=== PATIENT | female | born 1925 | race Hispanic/Latino ===

== ENCOUNTER 2017-08-13 17:10 | Inpatient (IN) | payer MEDICARE, OTHER ==
--- NOTE | 2017-08-13 17:35 | ED PDOC ---
Arrival/HPI <[place] - Last Filed: 08/14/17 03:19> - General Historian: Patient - History of Present Illness Time/Duration: Prior to Arrival Symptom Onset: Sudden Symptom Course: Improving Activities at Onset: Light Context: Home <Abimael Ceja - Last Filed: 08/16/17 23:13> - General Chief Complaint: Altered Mental Status Time Seen by Provider: 08/13/17 17:25 - History of Present Illness Narrative History of Present Illness (Text): 08/13/17 17:35 89 year old female, with past medical history of hypertension, presents to the Emergency department via EMS s/p syncopal episode prior to arrival. As per EMS, patient was found by bystander leaning over her apartment railing, unresponsive. 911 was called immediately. Patient's symptoms improved on scene but expresses confusion as to what have occurred. Upon arrival to the Emergency department, patient does not recall what happened with mild confusion to questions. Patient is currently stable and is orientx3. Attempt to contact daughter was made but was unsuccessful. Patient currently denies any fever, chills, nausea, vomiting, diarrhea, chest pain, sob, abdominal pain or any other somatic complaints. (Abimael Ceja) Past Medical History - Provider Review Nursing Documentation Reviewed: Yes - Infectious Disease Hx of Infectious Diseases: None - Reproductive Menopause: Yes - Cardiac Hx Hypertension: Yes - Psychiatric Hx Substance Use: No - Anesthesia Hx Anesthesia Reactions: No <Abimael Ceja - Last Filed: 08/16/17 23:13> Family/Social History - Physician Review Nursing Documentation Reviewed: Yes Family/Social History: No Known Family HX Smoking Status: Unknown If Ever Smoked Hx Alcohol Use: No Hx Substance Use: No <Abimael Ceja - Last Filed: 08/16/17 23:13> Allergies/Home Meds <[place] - Last Filed: 08/14/17 03:19> <Abimael Ceja - Last Filed: 08/16/17 23:13> Allergies/Adverse Reactions: Allergies levothyroxine sodium [From Synthroid] Allergy (Verified 08/14/17 08:07) RASH Home Medications: Home Meds Medication Instructions Recorded Confirmed amLODIPine [Norvasc] 10 mg PO DAILY 08/13/17 08/13/17 Review of Systems - Physician Review All systems were reviewed & negative as marked: Yes - Review of Systems Constitutional: Normal. absent: Fevers Eyes: Normal ENT: Normal Respiratory: Normal. absent: SOB Cardiovascular: Syncope. absent: Chest Pain Gastrointestinal: Normal. absent: Abdominal Pain, Diarrhea, Nausea, Vomiting Genitourinary Female: Normal Musculoskeletal: Normal Skin: Normal Neurological: Other (mild confusion) Endocrine: Normal Hemo/Lymphatic: Normal Psychiatric: Normal <Abimael Ceja - Last Filed: 08/16/17 23:13> Physical Exam Vital Signs Reviewed: Yes Temperature: Afebrile Blood Pressure: Hypertensive Pulse: Regular Respiratory Rate: Normal Appearance: Positive for: Well-Appearing, Non-Toxic, Comfortable Pain Distress: None Mental Status: Positive for: Alert and Oriented X 3, Confused (mildly confused) - Systems Exam Head: Present: Atraumatic, Normocephalic Pupils: Present: PERRL Extroacular Muscles: Present: EOMI Conjunctiva: Present: Normal Mouth: Present: Moist Mucous Membranes Neck: Present: Normal Range of Motion Respiratory/Chest: Present: Clear to Auscultation, Good Air Exchange. No: Respiratory Distress, Accessory Muscle Use Cardiovascular: Present: Regular Rate and Rhythm, Normal S1, S2. No: Murmurs Abdomen: Present: Normal Bowel Sounds. No: Tenderness, Distention, Peritoneal Signs Back: Present: Normal Inspection Upper Extremity: Present: Normal Inspection. No: Cyanosis, Edema Lower Extremity: Present: Normal Inspection. No: Edema Neurological: Present: GCS=15, CN II-XII Intact, Speech Normal Skin: Present: Warm, Dry, Normal Color. No: Rashes Psychiatric: Present: Alert, Oriented x 3, Normal Insight, Normal Concentration <Abimael Ceja - Last Filed: 08/16/17 23:13> Vital Signs Temp Pulse Resp BP Pulse Ox 08/14/17 00:49 69 17 163/93 H 98 08/13/17 23:30 69 198/95 H 08/13/17 22:26 68 17 178/93 H 98 08/13/17 17:30 97.5 F L 90 18 132/93 H 98 Medical Decision Making <[place] - Last Filed: 08/14/17 03:19> <Abimael Ceja - Last Filed: 08/16/17 23:13> ED Course and Treatment: 08/14/17 00:06 My involvement in the case was placing the admission order. ([place]) 08/13/17 17:42 Impression: 89 year old female presents to the Emergency department s/p syncope. ro cardiac metabolic infectious intracranial etiology Plan: -- CT of Head -- EKG -- Chest X-ray -- Urinalysis -- Reassess and disposition Progress Notes: 08/13/17 18:03 EKG: Ordered, reviewed, and independently interpreted the EKG. Rate : 72 BPM Rhythm : NSR Interpretation : No ST-segment elevations or depressions, no T-wave inversions, normal intervals. 08/13/17 22:41 cxr large hiatal hernia as read by me no pevious for comparison. urine treated. attemtped to reach daughter unsuccessfully. attempted to reach dr shah, pmd, no call back. hospitalist. accepts (Abimael Ceja) - Lab Interpretations Microbiology Results: Microbiology Results 08/13/17 19:00 Urine,Clean Catch Urine Culture - Final Escherichia Coli 08/14/17 00:15 Blood Blood Culture - Preliminary NO GROWTH AFTER 48 HOURS 08/14/17 00:00 Blood Blood Culture - Preliminary NO GROWTH AFTER 48 HOURS Lab Results: 08/13/17 17:45 08/13/17 17:45 Lab Results 08/14/17 00:10: Troponin I 0.03 D 08/14/17 00:10: Serum Osmolality 299 08/13/17 21:30: Free T4 0.29 L, TSH 3rd Generation 75.80 H 08/13/17 18:56: Urine Color Yellow, Urine Appearance Sl cloudy, Urine pH 6.5, Ur Specific [place] 1.020, Urine Protein >=300 H, Urine Glucose (UA) 250 H, Urine Ketones Negative, Urine Blood Small H, Urine Nitrate Positive H, Urine Bilirubin Negative, Urine Urobilinogen 0.2, Ur Leukocyte Esterase Negative, Urine RBC 0 - 2, Urine WBC 5 - 10, Ur Epithelial Cells 3 - 4, Urine Bacteria Many 08/13/17 17:45: Hemoglobin A1c 7.3 H 08/13/17 17:45: Sodium 142, Potassium 4.1, Chloride 102, Carbon Dioxide 23, Anion Gap 21 H, BUN 26 H, Creatinine 1.5 H, Est GFR ( Amer) 40, Est GFR ( Non-Af Amer) 33, Random Glucose 219 H, Calcium 9.5, Magnesium 2.3 H, Total Bilirubin 0.5, AST 79 H, ALT 45, Alkaline Phosphatase 81, Lactate Dehydrogenase 842 H, Total Creatine Kinase 189, Troponin I 0.01, Total Protein 7.7, Albumin 4.2, Globulin 3.5, Albumin/Globulin Ratio 1.2 08/13/17 17:45: PT 10.9, INR 0.96, APTT 28.2 08/13/17 17:45: WBC 9.0, RBC 4.53, Hgb 13.5, Hct 40.0, MCV 88.3, MCH 29.8, MCHC 33.8, RDW 13.5, Plt Count 300, MPV 9.1, Gran % 66.8, Lymph % (Auto) 28.0, [place] % (Auto) 4.3, Eos % (Auto) 0.3 L, Baso % (Auto) 0.6, Gran # 6.04, Lymph # (Auto ) 2.5, [place] # (Auto) 0.4, Eos # (Auto) 0.0, Baso # (Auto) 0.05 - RAD Interpretation Radiology Orders: 08/13/17 17:32 HEAD W/O CONTRAST [CT] Stat CHEST PORTABLE [RAD] Stat 08/13/17 23:27 CAROTID & VERTEBRAL DUPLEX [US] Routine - Medication Orders Current Medication Orders: Discontinued Medications Acetaminophen (Tylenol 325mg Tab) 650 mg PO STAT STA Stop: 08/14/17 02:24 Last Admin: 08/14/17 02:33 Dose: 650 mg [facility] Pain/Vitals Document 08/14/17 02:33 GC (Rec: 08/14/17 02:34 GC [id number]) Pain Reassessment Is This A Pain ReAssessment? No Sleep Is patient sleeping during reassessment? No Presence of Pain Presence of Pain Yes Pain Scale Used Pain Scale Used Numeric Location Left, Right or Bilateral Right Pain Location Body Site Abdomen Re-Assess: [facility] Pain/Vitals Document 08/14/17 03:33 GC (Rec: 08/14/17 03:47 GC [id number]) Pain Reassessment Is This A Pain ReAssessment? Yes Sleep Is patient sleeping during reassessment? Yes Amlodipine Besylate (Norvasc) 10 mg PO DAILY [facility] Last Admin: 08/16/17 09:29 Dose: 10 mg MAR Blood Pressure Document 08/16/17 09:29 (Rec: 08/16/17 09:35 [id number]) Blood Pressure Blood Pressure (100/60-150/90) 172/80 Amlodipine Besylate (Norvasc) 10 mg PO STAT STA Stop: 08/14/17 02:26 Last Admin: 08/14/17 02:33 Dose: 10 mg MAR Blood Pressure Document 08/14/17 02:33 GC (Rec: 08/14/17 02:33 GC [id number]) Blood Pressure Blood Pressure (100/60-150/90) 184/81 Aspirin (Aspirin Chewable) 81 mg PO DAILY [facility] Last Admin: 08/16/17 09:28 Dose: 81 mg Atorvastatin Calcium (Lipitor) 40 mg PO DIN [facility] Last Admin: 08/16/17 17:16 Dose: 40 mg Cefpodoxime Proxetil (Vantin) 200 mg PO DAILY [facility] Diphenhydramine HCl (Benadryl) 25 mg IVP Q4H PRN PRN Reason: Allergy symptoms Last Admin: 08/16/17 09:35 Dose: 25 mg IVP Administration Document 08/16/17 09:35 (Rec: 08/16/17 09:35 [id number]) Charges for Administration # of IVP Administrations 1 Famotidine (Pepcid) 40 mg PO HS [facility] Last Admin: 08/15/17 22:35 Dose: 40 mg Heparin Sodium (Porcine) (Heparin) 5,000 units SC Q12 [facility] PRN Reason: Protocol Last Admin: 08/16/17 09:28 Dose: 5,000 units Subcutaneous Administrations Document 08/16/17 09:28 (Rec: 08/16/17 09:28 [id number]) Injection Site MAR Injection Site Right Abdomen Charges for Administration # of Subcutaneous Administrations 1 Hydralazine HCl (Apresoline) 10 mg IVP STAT SEFER[facility] Stop: 08/13/17 22:16 Last Admin: 08/13/17 23:30 Dose: 10 mg IVP Administration Document 08/13/17 23:30 IT (Rec: 08/13/17 23:31 IT [id number]) Charges for Administration # of IVP Administrations 1 MAR Pulse and Blood Pressure Document 08/13/17 23:30 IT (Rec: 08/13/17 23:31 IT [id number]) Pulse Pulse Rate (60-90) 69 Blood Pressure Blood Pressure (100/60-150/90) 198/95 Hydralazine HCl (Apresoline) 5 mg IVP STAT STA Stop: 08/14/17 18:15 Last Admin: 08/14/17 18:23 Dose: 5 mg IVP Administration Document 08/14/17 18:23 R (Rec: 08/14/17 18:23 [id number] Charges for Administration # of IVP Administrations 1 MAR Pulse and Blood Pressure Document 08/14/17 18:23 JFR (Rec: 08/14/17 18:23 [id number]) Pulse Pulse Rate (60-90) 89 Blood Pressure Blood Pressure (100/60-150/90) 185/92 Hydralazine HCl (Apresoline) 5 mg IVP STAT STA Stop: 08/15/17 01:30 Last Admin: 08/15/17 01:37 Dose: 5 mg IVP Administration Document 08/15/17 01:37 GC (Rec: 08/15/17 01:38 GC [id number]) Charges for Administration # of IVP Administrations 1 MAR Pulse and Blood Pressure Document 08/15/17 01:37 GC (Rec: 08/15/17 01:38 GC [place] [id number]) Pulse Pulse Rate (60-90) 73 Blood Pressure Blood Pressure (100/60-150/90) 170/80 Ceftriaxone Sodium (Rocephin 2 Gm Ivpb) 2 gm in 100 mls @ 100 mls/hr IVPB STAT STA PRN Reason: Protocol Stop: 08/13/17 20:26 Last Admin: 08/13/17 20:55 Dose: 100 mls/hr eMAR Start Stop Document 08/13/17 20:55 IT (Rec: 08/13/17 20:55 IT [id number]) Intravenous Solution Start Date 08/13/17 Start Time 20:55 End Date 08/13/17 End time 21:55 Total Infusion Time 60 Ceftriaxone Sodium (Rocephin 1 Gram Ivpb) 1 gm in 100 mls @ 100 mls/hr IVPB DAILY [facility] PRN Reason: Protocol Last Admin: 08/16/17 09:36 Dose: 100 mls/hr eMAR Start Stop Document 08/16/17 09:36 (Rec: 08/16/17 09:36 [id number]) Intravenous Solution Start Date 08/16/17 Start Time 09:36 End Date 08/16/17 End time 10:36 Total Infusion Time 60 Sodium Chloride (Sodium Chloride 0.45%) 500 mls @ 100 mls/hr IV .Q5H SEFERINO Stop: 08/14/17 04:46 Last Admin: 08/14/17 05:09 Dose: Sodium Chloride (Sodium Chloride 0.9%) 1,000 mls @ 50 mls/hr IV .Q20H SEFERINO Stop: 08/14/17 23:59 Last Admin: 08/14/17 14:16 Dose: 50 mls/hr eMAR Start Stop Document 08/14/17 14:16 JFR (Rec: 08/14/17 15:16 JFR [id number]) Intravenous Solution Start Date 08/14/17 Start Time 14:16 Levothyroxine Sodium (Synthroid) 100 mcg IVP STAT STA Stop: 08/14/17 11:36 Last Admin: 08/14/17 12:31 Dose: 100 mcg IVP Administration Document 08/14/17 12:31 JFR (Rec: 08/14/17 12:31 JFR [id number]) Charges for Administration # of IVP Administrations 1 Levothyroxine Sodium (Synthroid) 100 mcg IVP DAILY [facility] Stop: 08/18/17 11:00 Last Admin: 08/16/17 09:29 Dose: 100 mcg IVP Administration Document 08/16/17 09:29 (Rec: 08/16/17 09:29 [id number]) Charges for Administration # of IVP Administrations 1 Metoprolol Succinate (Toprol Xl) 12.5 mg PO BRK [facility] Last Admin: 08/16/17 07:44 Dose: Metoprolol Succinate (Toprol Xl) 25 mg PO BRK [facility] Potassium Chloride (K-Dur 20 Meq Er Tab) 40 meq PO ONCE ONE Stop: 08/14/17 07:53 Last Admin: 08/14/17 08:23 Dose: 40 meq <[place] - Last Filed: 08/14/17 03:19> - Scribe Statement The provider has reviewed the documentation as recorded by the Scribe <Abimael Ceja - Last Filed: 08/16/17 23:13> - Scribe Statement Deanne Call. All medical record entries made by the Scribe were at my direction and personally dictated by me. I have reviewed the chart and agree that the record accurately reflects my personal performance of the history, physical exam, medical decision making, and the department course for this patient. I have also personally directed, reviewed, and agree with the discharge instructions and disposition. (Abimael Ceja) Disposition/Present on Arrival - Disposition Disposition Time: 22:00 <[place] - Last Filed: 08/14/17 03:19> - Present on Arrival Any Indicators Present on Arrival: No History of DVT/PE: No History of Uncontrolled Diabetes: No Urinary Catheter: No History of Decub. Ulcer: No History Surgical Site Infection Following: None - Disposition Have Diagnosis and Disposition been Completed?: Yes <Abimael eCja - Last Filed: 08/16/17 23:13> - Disposition Diagnosis: Syncope Disposition: HOSPITALIZED Condition: STABLE
[2017-08-13 18:07] LABS: BASO # 0.05 K/mm3 (0.0-2.0); BASO % 0.6 % (0.0-3.0); EOS % 0.3 % (1.5-5.0); GRAN # 6.04 (1.4-6.5); GRAN % 66.8 % (50.0-68.0); HEMOGLOBIN 13.5 g/dL (12.0-16.0); LYMPH # 2.5 (1.2-3.4); MEAN CELL VOLUME 88.3 fl (80.0-105.0); MEAN CORPUSCULAR HEMOGLOBIN 29.8 pg (25.0-35.0); MEAN CORPUSCULAR HGB CONC 33.8 g/dl (31.0-37.0); MEAN PLATELET VOLUME 9.1 fl (7.0-11.0); MONO # 0.4 (0.1-0.6); MONO % 4.3 % (1.0-6.0); RBC 4.53 10^6/uL (3.5-6.1); RED CELL DISTRIBUTION WIDTH 13.5 % (11.5-14.5)
[2017-08-13 18:14] LABS: INR 0.96 (0.93-1.08); PARTIAL THROMBOPLASTIN TIME 28.2 Seconds (25.1-36.5); PROTHROMBIN TIME 10.9 SECONDS (9.4-12.5)
[2017-08-13 18:20] LABS: TROPONIN I 0.01 ng/mL
[2017-08-13 18:23] LABS: ALB/GLOB RATIO 1.2 (1.1-1.8); ALBUMIN 4.2 g/dL (3.0-4.8); CALCIUM 9.5 mg/dL (8.4-10.5); MAGNESIUM 2.3 mg/dL (1.7-2.2)
[2017-08-13 19:26] LABS: PH,URINE 6.5 (4.7-8.0); URINE APPEARANCE SL CLOUDY (CLEAR); URINE BILIRUBIN NEGATIVE (NEGATIVE); URINE BLOOD SMALL (NEGATIVE); URINE COLOR YELLOW (YELLOW); URINE GLUCOSE (UA) 250 mg/dL (NEGATIVE); URINE LEUKOCYTE ESTERASE NEGATIVE Leu/uL (NEGATIVE); URINE NITRATE POSITIVE (NEGATIVE); URINE PROTEIN >=300 mg/dL (<30 mg/dL); URINE UROBILINOGEN 0.2 E.U./dL (<1 E.U./dL)
[2017-08-13] MEDS ORDERED: cefTRIAXone 2 GM IN NS 2 GM/100 ML BAG IVPB STA (19:27)
[2017-08-13 19:36] LABS: URINE BACTERIA MANY (NEG); URINE RBC 0 - 2 /hpf (0-2)
--- NOTE | 2017-08-13 21:09 | CT ---
EXAM: CT Head Without Intravenous Contrast CLINICAL HISTORY: 89 years old, female; Signs and symptoms; Syncope and collapse TECHNIQUE: Axial computed tomography images of the head/brain without intravenous contrast. All CT scans at this facility use one or more dose reduction techniques, viz.: automated exposure control; ma/kV adjustment per patient size (including targeted exams where dose is matched to indication; i.e. head); or iterative reconstruction technique. Coronal and sagittal reformatted images were created and reviewed. COMPARISON: No relevant prior studies available. FINDINGS: Brain: Moderate atrophy. No intracranial hemorrhage. No mass. Senescent calcifications of basal ganglia and cerebellum. Few scattered foci of decreased attenuation within periventricular/subcortical white matter. No definite edema. Ventricles: No hydrocephalus. Bones/joints: No acute fracture. Degenerative changes of RIGHT temporomandibular joint. Soft tissues: Unremarkable. Vasculature: Mild atherosclerotic disease of intracranial arteries. Sinuses: Moderate to severe mucosal thickening of RIGHT maxillary sinus. Scattered minimal mucosal thickening of remaining sinuses. Mastoid air cells: No mastoid effusion. Orbits: Unremarkable as visualized. IMPRESSION: 1. Nonspecific white matter changes. Acute infarction may be CT occult within first 24 hours. If a focal deficit persists, consider followup CT or MRI for further evaluation. 2. Incidental/non-acute findings are described above.
--- NOTE | 2017-08-13 23:59 | CP.PCM.HP ---
History of Present Illness - History of Present Illness History of Present Illness: Sherin Michel, PGY1, H&P for Dr Castro: CC: syncope 89 year old female, with PMH HTN, CVA, TIA, hypothyroidism, HLD, present to ED s /p syncopal episode x1. Pt is a poor historian and hard of hearing. As per EMS, patient was found by bystander leaning over her apartment railing, unresponsive. 911 was called immediately by her neighbor. As per pt, she was in her usual state of health until this evening. She was [place] [employer] [place] and going to her daughter's place when her right foot "gave out" and she could not move. She then passed out and fell forward over the railing nearby, denies hitting her head/ribs/hip. She then woke up in the hospital, she was mildly confused to what happened, but is currently AAOx3. Denies dizziness, weakness, fever, chills, nausea, vomiting, neck pain, rash, sob, cough, abdominal pain, chest pain, dysuria, hematuria, leg swelling. Of note, pt states that she is allergic to synthroid (causes throat swelling) and stopped taking it for a month. Denies previous such episodes, states that she had slurred speech in her previous stroke episodes. In ED, pt afebrile, bp elevated, elevated BUN/Cr 26/2.5, UTI positive for infection, CT head negative, CXR shows large hiatal hernia. EKg shows normal sinus rhythm without any ST/T wave changes. Currently, pt is at her baseline, denies any symptoms. Give rocephin 2 gm IV x1. Attempt made to contact daughter , which was unsuccessful. 12 point ROS obtained and negative, except as per HPI. PMH: HTN, CVA with no residual weakness (10 years ago), TIA x4 (many years ago) , hypothyroidism, HLD PSH: denies All: synthroid (throat swelling) FH: denies SH: denies etoh/drug/tobacco use. Lives at home alone, has daughter nearby to help her. Uses shopping cart to walk around (states that her cane is too heavy). [facility]acy: [facility] ([facility]: please call pharmacy to get all home meds) Present on Admission - Present on Admission Any Indicators Present on Admission: No History of DVT/PE: No History of Uncontrolled Diabetes: No Urinary Catheter: No Decubitus Ulcer Present: No Review of Systems - Review of Systems All systems: reviewed and no additional remarkable complaints except Review of Systems: as per HPI Past Patient History - Infectious Disease Hx of Infectious Diseases: None - Past Social History Smoking Status: Unknown If Ever Smoked - CARDIAC Hx Hypertension: Yes - PSYCHIATRIC Hx Substance Use: No - ANESTHESIA Hx Anesthesia Reactions: No Meds Allergies/Adverse Reactions: Allergies Allergy/AdvReac Type Severity Reaction Status Date / Time Unobtainable Allergy Verified 08/13/17 17:29 Physical Exam - Constitutional Appears: Non-toxic, No Acute Distress, Older Than Stated Age, Chronically Ill - Head Exam Head Exam: ATRAUMATIC, NORMOCEPHALIC - Eye Exam Eye Exam: EOMI, PERRL. absent: Conjunctival injection, Nystagmus, Scleral icterus Pupil Exam: NORMAL ACCOMODATION, PERRL. absent: Fixed, Irregular, Unequal - ENT Exam ENT Exam: Mucous Membranes Moist - Neck Exam Neck exam: Positive for: Full Rom - Respiratory Exam Respiratory Exam: Clear to Auscultation Bilateral, NORMAL BREATHING PATTERN. absent: Accessory Muscle Use, Chest Wall Tenderness, Rales, Rhonchi, Wheezes, Respiratory Distress, Stridor - Cardiovascular Exam Cardiovascular Exam: RRR, +S1, +S2. absent: Bradycardia, Tachycardia, Systolic Murmur - GI/Abdominal Exam GI & Abdominal Exam: Normal Bowel Sounds, Soft. absent: Diminished Bowel Sounds , Distended, Firm, Guarding, Organomegaly, Rebound, Rigid, Tenderness - Extremities Exam Extremities exam: Positive for: normal inspection. Negative for: calf tenderness, pedal edema - Back Exam Back exam: NORMAL INSPECTION - Neurological Exam Neurological exam: Alert, CN II-XII Intact, Oriented x3, Reflexes Normal Additional comments: Sensation grossly intact throughout. Motor strength 5/5 bilaterally - Psychiatric Exam Psychiatric exam: Normal Affect, Normal Mood - Skin Skin Exam: Dry, Normal Color, Warm Results - Vital Signs Recent Vital Signs: Last Vital Signs Temp 97.5 F L 08/13/17 17:30 Pulse 69 08/13/17 23:30 Resp 17 08/13/17 22:26 BP 198/95 H 08/13/17 23:30 Pulse Ox 98 08/13/17 22:26 - Labs Result Diagrams: 08/13/17 17:45 02/03/18 17:45 Labs: Laboratory Results - last 24 hr 08/13/17 08/13/17 08/13/17 17:45 17:45 17:45 WBC 9.0 RBC 4.53 Hgb 13.5 Hct 40.0 MCV 88.3 MCH 29.8 MCHC 33.8 RDW 13.5 Plt Count 300 MPV 9.1 Gran % 66.8 Lymph % (Auto) 28.0 [place] % (Auto) 4.3 Eos % (Auto) 0.3 L Baso % (Auto) 0.6 Gran # 6.04 Lymph # (Auto) 2.5 [place] # (Auto) 0.4 Eos # (Auto) 0.0 Baso # (Auto) 0.05 PT 10.9 INR 0.96 APTT 28.2 Sodium 142 Potassium 4.1 Chloride 102 Carbon Dioxide 23 Anion Gap 21 H BUN 26 H Creatinine 1.5 H Est GFR ( Amer) 40 Est GFR (Non-Af Amer) 33 Random Glucose 219 H Calcium 9.5 Magnesium 2.3 H Total Bilirubin 0.5 AST 79 H ALT 45 Alkaline Phosphatase 81 Lactate Dehydrogenase 842 H Total Creatine Kinase 189 Troponin I 0.01 Total Protein 7.7 Albumin 4.2 Globulin 3.5 Albumin/Globulin Ratio 1.2 Urine Color Urine Appearance Urine pH Ur Specific [place] Urine Protein Urine Glucose (UA) Urine Ketones Urine Blood Urine Nitrate Urine Bilirubin Urine Urobilinogen Ur Leukocyte Esterase Urine RBC Urine WBC Ur Epithelial Cells Urine Bacteria 08/13/17 18:56 WBC RBC Hgb Hct MCV MCH MCHC RDW Plt Count MPV Gran % Lymph % (Auto) [place] % (Auto) Eos % (Auto) Baso % (Auto) Gran # Lymph # (Auto) [place] # (Auto) Eos # (Auto) Baso # (Auto) PT INR APTT Sodium Potassium Chloride Carbon Dioxide Anion Gap BUN Creatinine Est GFR ( Amer) Est GFR (Non-Af Amer) Random Glucose Calcium Magnesium Total Bilirubin AST ALT Alkaline Phosphatase Lactate Dehydrogenase Total Creatine Kinase Troponin I Total Protein Albumin Globulin Albumin/Globulin Ratio Urine Color Yellow Urine Appearance Sl cloudy Urine pH 6.5 Ur Specific [place] 1.020 Urine Protein >=300 H Urine Glucose (UA) 250 H Urine Ketones Negative Urine Blood Small H Urine Nitrate Positive H Urine Bilirubin Negative Urine Urobilinogen 0.2 Ur Leukocyte Esterase Negative Urine RBC 0 - 2 Urine WBC 5 - 10 Ur Epithelial Cells 3 - 4 Urine Bacteria Many Assessment & Plan - Assessment and Plan (Free Text) Assessment: 89 year old female with hx of CVA, TIA, hypothyroidism, HTN, HLD, presents for syncopal episode, found to have UTI, GRACIELA: Syncope: 2/2 cardiac arrhythmias vs cardiac valvular abnormalities vs TIA vs CVA vs thyroid abnormalities vs UTI/sepsis - pt afebrile, elevated BP - EKG shows HR [address]/T changes, T wave inversions. - Trop neg x1, f/u serial trops - F/u echo, carotid doppler - ASA 81 mg, lipitor 40 mg - Neuro checks - Neuro consulted. F/u recs - Cardio ([facility]) consulted. F/u recs. - F/u TSH, Ft4 - UA + infection. F/u urine culture. - Rocephin 2 mg IV given in ED. C/w Rocephin 1 mg IV daily for UTI UTI: - UA + for infection - Rocephin 2 mg iV given in ED. F/u urine culture Acute on chronic kidney disease: likely dehydration vs intrinsic kidney disease vs postrenal - GFR 33 - BUN/Cr 26/1.5 (unknown baseline) - F/u urine lytes, fena - Gentle hydration 1/2 NS @ 100cc/hr x 5 hours. Hx of hypothyroidism: - Pt states that she is allergic to Synthroid (causes throat swelling) and has not taken it for past 1 month - F/u TSH, FT4 Hx of HTN: - C/w home med Norvasc Hx of CVA: - confirm home meds with [facility] pharmacy in daytime. - Plavix? PPX: SCDs, Pepcid Discussed with Dr Castro. - Date & Time Date: 08/14/17 Time: 00:07
[2017-08-14 00:21] LABS: FREE T4 0.29 ng/dL (0.78-2.19)
[2017-08-14] MEDS: Sodium Chloride 0.45% 500 ML IV SCH ×2 (00:49→05:09)
[2017-08-14 02:59] VITALS: BMI 24.0
[2017-08-14 07:16] LABS: BASO # 0.03 K/mm3 (0.0-2.0); BASO % 0.3 % (0.0-3.0); EOS % 0.1 % (1.5-5.0); GRAN # 8.43 (1.4-6.5); GRAN % 74.7 % (50.0-68.0); HEMOGLOBIN 12.6 g/dL (12.0-16.0); LYMPH # 2.3 (1.2-3.4); LYMPH % 20.6 % (22.0-35.0); MEAN CELL VOLUME 87.3 fl (80.0-105.0); MEAN CORPUSCULAR HEMOGLOBIN 29.1 pg (25.0-35.0); MEAN CORPUSCULAR HGB CONC 33.3 g/dl (31.0-37.0); MEAN PLATELET VOLUME 8.9 fl (7.0-11.0); MONO # 0.5 (0.1-0.6); MONO % 4.3 % (1.0-6.0); RBC 4.33 10^6/uL (3.5-6.1); RED CELL DISTRIBUTION WIDTH 13.5 % (11.5-14.5); WHITE BLOOD COUNT 11.3 10^3/ul (4.5-11.0)
[2017-08-14 07:35] LABS: ALB/GLOB RATIO 1.1 (1.1-1.8); ALBUMIN 3.4 g/dL (3.0-4.8); CALCIUM 9.2 mg/dL (8.4-10.5); MAGNESIUM 2.2 mg/dL (1.7-2.2)
[2017-08-14 07:37] LABS: TROPONIN I 0.04 ng/mL
[2017-08-14] MEDS ORDERED: Potassium Chloride 20 mEq ER Tab PO ONE (07:52)
--- NOTE | 2017-08-14 07:54 | CP.PCM.PN ---
<Barbara Mayes - Last Filed: 08/14/17 14:26> Subjective - Date & Time of Evaluation Date of Evaluation: 08/14/17 Time of Evaluation: 09:30 - Subjective Subjective: PGY2 Medicine note for Dr. Blanchard Patient seen and examined sitting up in bed eating breakfast. Patient was AO x 3 and able to follow commands and complete full sentences. She was able to recall the story from the day prior of how she felt weak and her legs gave way and she fell. Patient reported some pain on the right side of her chest which she associates with the fall. Otherwise on complete ROS she denied acute complaints of headache, dizziness, chest pain, palpitations, SOB, cough, abd pain, nausea, vomiting, bowel/bladder complaints, pain/swelling in her legs bilaterally. Objective - Vital Signs/Intake and Output Vital Signs (last 24 hours): Temp Pulse Resp BP Pulse Ox 98.5 F 97 H 18 159/70 H 98 08/14/17 06:00 08/14/17 06:00 08/14/17 06:00 08/14/17 06:00 08/14/17 06:00 Intake and Output: 08/14/17 08/14/17 06:59 18:59 Intake Total 520 Output Total 300 Balance 220 - Medications Medications: Current Medications Amlodipine Besylate (Norvasc) 10 mg PO DAILY SEFERINO Aspirin (Aspirin Chewable) 81 mg PO DAILY SEFERINO Atorvastatin Calcium (Lipitor) 40 mg PO DIN SEFERINO Famotidine (Pepcid) 40 mg PO HS [facility] Last Admin: 08/14/17 02:04 Dose: 40 mg Ceftriaxone Sodium (Rocephin 1 Gram Ivpb) 1 gm in 100 mls @ 100 mls/hr IVPB DAILY [facility] PRN Reason: Protocol - Labs Labs: 08/14/17 06:30 08/14/17 06:30 PT 10.9 SECONDS (9.4-12.5) 08/13/17 17:45 INR 0.96 (0.93-1.08) 08/13/17 17:45 APTT 28.2 Seconds (25.1-36.5) 08/13/17 17:45 - Constitutional Appears: Younger Than Stated Age - Head Exam Head Exam: ATRAUMATIC, NORMAL INSPECTION, NORMOCEPHALIC - Eye Exam Eye Exam: EOMI, Normal appearance, PERRL. absent: Conjunctival injection, Scleral icterus - ENT Exam ENT Exam: Mucous Membranes Moist - Neck Exam Neck Exam: Full ROM, Normal Inspection - Respiratory Exam Respiratory Exam: Clear to Ausculation Bilateral, NORMAL BREATHING PATTERN. absent: Accessory Muscle Use, Chest Wall Tenderness, Rales, Rhonchi, Wheezes, Respiratory Distress - Cardiovascular Exam Cardiovascular Exam: REGULAR RHYTHM, RRR, +S1, +S2. absent: Murmur - GI/Abdominal Exam GI & Abdominal Exam: Soft, Normal Bowel Sounds. absent: Firm, Guarding, Rigid, Tenderness - Extremities Exam Extremities Exam: Normal Capillary Refill, Normal Inspection. absent: Pedal Edema, Tenderness - Back Exam Back Exam: NORMAL INSPECTION. absent: rash noted - Neurological Exam Neurological Exam: Alert, Awake, CN II-XII Intact, Oriented x3 - Psychiatric Exam Psychiatric exam: Normal Affect, Normal Mood - Skin Skin Exam: Dry, Intact, Normal Color, Warm Assessment and Plan - Assessment and Plan (Free Text) Assessment: 89 year old female with hx of CVA, TIA, hypothyroidism, HTN, HLD, presents for syncopal episode, found to have UTI, GRACIELA Plan: Syncope: - 2/2 cardiac arrhythmias vs cardiac valvular abnormalities vs TIA vs CVA vs thyroid abnormalities vs UTI/sepsis - pt afebrile, elevated BP - EKG shows HR [address]/T changes, T wave inversions. - Trop neg x 3 - F/u echo, carotid doppler - ASA 81 mg, lipitor 40 mg - Head/Neck MRA: neg - Brain MRI: neg - Head CT: neg - Neuro checks - Neuro consulted. F/u recs - Cardio ([place]) consulted. F/u recs. UTI: - UA + for infection: Protein > 300, Glucose 250, Small blood, Nitrate + - F/u blood and urine culture - Rocephin 1gm qd Acute on chronic kidney disease: - likely dehydration vs intrinsic kidney disease vs postrenal - GFR 33 - BUN/Cr 26/1.5 (unknown baseline) --> Bun/Cr 21/1.3 - F/u urine lytes, fena - Gentle hydration 1/2 NS @ 100cc/hr x 5 hours. Hx of hypothyroidism: - Free T4: 0.29 - TSH: 75.80 - Synthroid 100mcg ivp qdaily ordered by Dr. Cam Hx of HTN: - C/w home med Norvasc Hx of CVA: - confirm home meds with [facility] - Plavix? GI ppx: Pepcid 40mg po hs DVT ppx: SCDs, Heparin 5000u sq q12 Diet: HHD Discussed with Dr. Santo Mayes PGY2 <Celina Blanchard - Last Filed: 08/14/17 15:12> Objective - Vital Signs/Intake and Output Vital Signs (last 24 hours): Temp Pulse Resp BP Pulse Ox 98.2 F 65 18 146/71 98 08/14/17 12:00 08/14/17 12:00 08/14/17 12:00 08/14/17 12:00 08/14/17 06:00 Intake and Output: 08/14/17 08/14/17 06:59 18:59 Intake Total 520 300 Output Total 300 600 Balance 220 -300 - Medications Medications: Current Medications Amlodipine Besylate (Norvasc) 10 mg PO DAILY [facility] Last Admin: 08/14/17 10:52 Dose: 10 mg Aspirin (Aspirin Chewable) 81 mg PO DAILY [facility] Last Admin: 08/14/17 10:52 Dose: 81 mg Atorvastatin Calcium (Lipitor) 40 mg PO DIN SEFERINO Diphenhydramine HCl (Benadryl) 25 mg IVP Q4H PRN PRN Reason: Allergy symptoms Famotidine (Pepcid) 40 mg PO HS [facility] Last Admin: 08/14/17 02:04 Dose: 40 mg Heparin Sodium (Porcine) (Heparin) 5,000 units SC Q12 SEFERINO PRN Reason: Protocol Ceftriaxone Sodium (Rocephin 1 Gram Ivpb) 1 gm in 100 mls @ 100 mls/hr IVPB DAILY [facility] PRN Reason: Protocol Last Admin: 08/14/17 10:49 Dose: 100 mls/hr Sodium Chloride (Sodium Chloride 0.9%) 1,000 mls @ 50 mls/hr IV .Q20H [facility] Stop: 08/14/17 23:59 Levothyroxine Sodium (Synthroid) 100 mcg IVP DAILY [facility] Stop: 08/18/17 11:00 - Labs Labs: 08/14/17 06:30 08/14/17 06:30 PT 10.9 SECONDS (9.4-12.5) 08/13/17 17:45 INR 0.96 (0.93-1.08) 08/13/17 17:45 APTT 28.2 Seconds (25.1-36.5) 08/13/17 17:45 Attending/Attestation - Attestation I have personally seen and examined this patient.: Yes I have fully participated in the care of the patient.: Yes I have reviewed all pertinent clinical information, including history, physical exam and plan: Yes Notes (Text): 08/14/17 15:08 89 year old female with past medical history of CVA, hypothyroidism, hypertension and hypothyroidism who presented after syncopal episode. CT head is negative. MRI studies are negative for acute findings as well. Neurology evaluation was appreciated. EEG is pending. She is also pending cardiology and physical therapy evaluation. Echocardiogram and carotid dopplers are pending. She was also found to UTI. Continue with ceftiaxone while awaiting urine culture. TSH is elevated. She admits to medication noncompliance. Endocrinology evaluation is requested. Continue with IVF for mild GRACIELA which is improving. Case was discussed with her pmd Dr. Schultz this morning. Celina Blanchard MD [facility].
--- NOTE | 2017-08-14 08:49 | RAD ---
HISTORY: syncope COMPARISON: No prior. FINDINGS: LUNGS: No active pulmonary disease. PLEURA: No significant pleural effusion identified, no pneumothorax apparent. CARDIOVASCULAR: Normal. OSSEOUS STRUCTURES: No significant abnormalities. VISUALIZED UPPER ABDOMEN: Large hiatal hernia OTHER FINDINGS: None. IMPRESSION: No active disease.
[2017-08-14] MEDS: cefTRIAXone 1 gm 1 GM/100 ML BAG IVPB SCH (10:49)
[2017-08-14] MEDS ORDERED: Levothyroxine 100 mcg (0.1 mg) Inj IVP STA (11:35)
--- NOTE | 2017-08-14 11:44 | CARD ---
APPROVED REPORT EKG Measurement Heart [id number] 130P77 [id number] <Conclusion> Normal sinus rhythm Left anterior fascicular block Septal infarct, age undetermined Abnormal ECG
--- NOTE | 2017-08-14 11:47 | MRI ---
PROCEDURE: MRI BRAIN WITHOUT CONTRAST HISTORY: r/o tia COMPARISON: None. TECHNIQUE: Multiplanar, multisequence MR images of the brain were obtained without intravenous contrast enhancement. FINDINGS: HEMORRHAGE: None DWI: No evidence of an acute or early subacute infarction. BRAIN PARENCHYMA: No mass effect or edema. Chronic microvascular changes are seen in the periventricular white matter. There is moderate atrophy. There are no acute intracranial finding VENTRICLES: Unremarkable. No hydrocephalus. CRANIUM: Unremarkable. ORBITS: Grossly unremarkable. PARANASAL SINUSES/MASTOIDS: There is mucosal thickening and partial opacification of the right maxillary sinus VASCULAR SYSTEM: Skull base flow voids intact. OTHER FINDINGS: None. IMPRESSION: No acute intracranial findings
--- NOTE | 2017-08-14 11:49 | CARD ---
APPROVED REPORT EKG Measurement Heart [id number] 128P70 [id number] <Conclusion> Normal sinus rhythm Left anterior fascicular block Septal infarct, age undetermined Abnormal ECG
--- NOTE | 2017-08-14 11:49 | MRI ---
PROCEDURE: MR Angiography of the neck without contrast HISTORY: r/o tia COMPARISON: None available. TECHNIQUE: 3D [id number] angiography of the neck was performed. Rotating maximum intensity projection images of the cervical carotid and vertebral arteries were generated. The origins of the common carotid arteries were not visualized, which is a limitation inherent to the non-contrast time of flight technique. There is motion artifact on the study which limited several of the series. However the 3D [id number] images were of diagnostic quality. FINDINGS: RIGHT CAROTID ARTERIES: Common Carotid Artery: Normal. Carotid Bifurcation: Normal. Internal Carotid Artery:Normal. External Carotid Artery (proximal branches): Normal. LEFT CAROTID ARTERIES: Common Carotid Artery: Normal. Carotid Bifurcation: Normal. Internal Carotid Artery:Normal. External Carotid Artery (proximal branches): Normal. VERTEBRAL ARTERIES: Right Vertebral Artery: Dominant Left Vertebral Artery: Normal. OTHER FINDINGS: None. IMPRESSION: No significant stenosis
--- NOTE | 2017-08-14 11:53 | MRI ---
PROCEDURE: Magnetic Resonance Angiography Brain HISTORY: r/o tia COMPARISON: None available. TECHNIQUE: 3D time of flight MR angiography of the intracranial arteries was performed. Rotating maximum intensity projection images were generated. There is motion artifact on the study. Distal vessels are poorly visualized on reconstructed images. On the source images flow is seen in the distal branches. FINDINGS: INTERNAL CAROTID ARTERIES: Unremarkable. The skull base, petrous, cavernous and supraclinoid segments are bilaterally widely patient. ANTERIOR CEREBRAL ARTERIES: Unremarkable. A1 and A2 segments are widely patent. Smaller distal branches unremarkable, as visualized. MIDDLE CEREBRAL ARTERIES: Unremarkable. M1 and M2 segments are widely patent. Perisylvian branches grossly symmetric. POSTERIOR CIRCULATION: Basilar Artery: Unremarkable. Distal Vertebral Arteries: Unremarkable. Posterior Cerebral Arteries: Unremarkable. Posterior Inferior Cerebellar Arteries: Unremarkable. ANEURYSM/ VASCULAR MALFORMATIONS: None. OTHER FINDINGS: None. IMPRESSION: There is motion artifact on the study. Distal vessels are poorly visualized on reconstructed images. On the source images flow is seen in the distal branches. No stenosis or occlusion of the proximal vessels
[2017-08-14] MEDS ORDERED: Sodium Chloride 0.9% 1,000 ML IV SCH (14:00)
--- NOTE | 2017-08-14 14:33 | CP.PCM.CON ---
History of Present Illness - History of Present Illness History of Present Illness: Mrs. Mckay is an 89-year-old woman with a past medical history of HTN, CVA, TIA, hypothyroidism, HLD, who was brought to the ED after a syncopal episode. She was found leaning over a railing, unconscious, by a neighbor. The patient only recalls going shopping and coming back. She was confused after the episode. Labs showed GRACIELA and UTI. CT scan of the head did not show any acute findings. MRI brain and MRA of the head/neck were essentially normal. The patient states she "feels fine" now. Review of Systems - Review of Systems All systems: reviewed and no additional remarkable complaints except Past Patient History - Infectious Disease Hx of Infectious Diseases: None - Past Social History Smoking Status: Never Smoked - CARDIAC Hx Cardiac Disorders: Yes Hx Hypertension: Yes Other/Comment: hyperlipidemia - NEUROLOGICAL Hx Neurological Disorder: Yes HX Cerebrovascular Accident: Yes (w/ no weakness) Hx Transient Ischemic Attacks (TIA): Yes - ENDOCRINE/METABOLIC Hx Endocrine Disorders: Yes Hx Hypothyroidism: Yes - MUSCULOSKELETAL/RHEUMATOLOGICAL Hx Falls: Yes (syncopal episode 08/2017) - PSYCHIATRIC Hx Substance Use: No - ANESTHESIA Hx Anesthesia Reactions: No Meds Allergies/Adverse Reactions: Allergies Allergy/AdvReac Type Severity Reaction Status Date / Time levothyroxine sodium Allergy RASH Verified 08/14/17 08:07 [From Synthroid] - Medications Medications: Current Medications Amlodipine Besylate (Norvasc) 10 mg PO DAILY SEFERINO Last Admin: 08/14/17 10:52 Dose: 10 mg Aspirin (Aspirin Chewable) 81 mg PO DAILY [facility] Last Admin: 08/14/17 10:52 Dose: 81 mg Atorvastatin Calcium (Lipitor) 40 mg PO DIN [facility] Diphenhydramine HCl (Benadryl) 25 mg IVP Q4H PRN PRN Reason: Allergy symptoms Famotidine (Pepcid) 40 mg PO HS [facility] Last Admin: 08/14/17 02:04 Dose: 40 mg Ceftriaxone Sodium (Rocephin 1 Gram Ivpb) 1 gm in 100 mls @ 100 mls/hr IVPB DAILY [facility] PRN Reason: Protocol Last Admin: 08/14/17 10:49 Dose: 100 mls/hr Sodium Chloride (Sodium Chloride 0.9%) 1,000 mls @ 50 mls/hr IV .Q20H [facility] Stop: 08/14/17 23:59 Levothyroxine Sodium (Synthroid) 100 mcg IVP DAILY [facility] Stop: 08/18/17 11:00 Physical Exam - Constitutional Appears: Well - Head Exam Head Exam: ATRAUMATIC, NORMAL INSPECTION, NORMOCEPHALIC - Eye Exam Eye Exam: EOMI, Normal appearance, PERRL - ENT Exam ENT Exam: Mucous Membranes Moist, Normal Exam - Respiratory Exam Respiratory Exam: Clear to Auscultation Bilateral, NORMAL BREATHING PATTERN - Cardiovascular Exam Cardiovascular Exam: REGULAR RHYTHM, +S1, +S2 - Rectal Exam Rectal Exam: Deferred - Neurological Exam Neurological exam: Abnormal Gait, Alert, CN II-XII Intact, Oriented x3, Reflexes Normal - Expanded Neurological Exam Expanded Patient oriented to: person, place, time Cranial nerves: EOM's Intact: Normal, Facial Sensation: Normal, Nystagmus: Normal Ataxia: No Cerebellar Function: Finger to Nose: Normal, Heel to Wynn: Normal Upper motor neuron: Babinski Sign: Normal Sensory exam: Lower Extremity Light Touch: Normal, Lower Extremity Pin Prick: Normal, Upper Extremity Light Touch: Normal, Upper Extremity Pin Prick: Normal Neuro motor strength exam: Left Upper Extremity: 4, Right Upper Extremity: 4, Left Lower Extremity: 4, Right Lower Extremity: 4 DTR: Achilles Tendon Left: 2+, Achilles Tendon Right: 2+, Bicep Left: 2+, Bicep Right: 2+, Brachioradialis Left: 2+, Brachioradialis Right: 2+, Patellar Left: 2 +, Patellar Right: 2+, Tricep Left: 2+, Tricep Right: 2+ - Psychiatric Exam Psychiatric exam: Normal Affect, Normal Mood - Skin Skin Exam: Dry, Normal Color, Pallor Results - Vital Signs Recent Vital Signs: Last Vital Signs Temp 98.2 F 08/14/17 12:00 Pulse 65 08/14/17 12:00 Resp 18 08/14/17 12:00 BP 146/71 08/14/17 12:00 Pulse Ox 98 08/14/17 06:00 - Labs Result Diagrams: 08/14/17 06:30 08/14/17 06:30 Labs: Laboratory Results - last 24 hr 08/14/17 08/14/17 06:30 06:30 WBC 11.3 H D RBC 4.33 Hgb 12.6 Hct 37.8 MCV 87.3 MCH 29.1 MCHC 33.3 RDW 13.5 Plt Count 277 MPV 8.9 Gran % 74.7 H Lymph % (Auto) 20.6 L Haines % (Auto) 4.3 Eos % (Auto) 0.1 L Baso % (Auto) 0.3 Gran # 8.43 H Lymph # (Auto) 2.3 Haines # (Auto) 0.5 Eos # (Auto) 0.0 Baso # (Auto) 0.03 Sodium 142 Potassium 3.2 L Chloride 102 Carbon Dioxide 29 Anion Gap 14 BUN 21 Creatinine 1.3 H Est GFR ( Amer) 47 Est GFR (Non-Af Amer) 39 Random Glucose 140 H Calcium 9.2 Phosphorus 3.4 Magnesium 2.2 Total Bilirubin 0.3 AST 44 H D ALT 42 Alkaline Phosphatase 66 Troponin I 0.04 D NT-Pro-B Natriuret Pep 913 H Total Protein 6.6 Albumin 3.4 Globulin 3.2 Albumin/Globulin Ratio 1.1 Triglycerides 152 Cholesterol 205 H LDL Cholesterol Direct 118 HDL Cholesterol 57 Assessment & Plan - Assessment and Plan (Free Text) Assessment: Syncope, likely of neuro-cardiogenic origin, and may be related to dehydration and UTI. The confusion after syncope could be related to UTI, but seizure and post-ictal state cannot be ruled out completely. Plan: I recommend an EEG to be done for 1 hour awake and drowsy. Continue medical management for GRACIELA and UTI. PT/OT eval and treatment if needed. Will refer to Dr. Dawson for follow-up.
--- NOTE | 2017-08-14 23:30 | CON ---
DATE: ENDOCRINOLOGY CONSULTATION LOCATION: Room 276. HISTORY OF PRESENT ILLNESS: This is an 89-year-old female with longstanding history of hypothyroidism, apparently has been off medications for over a month because of an apparent allergic reaction to generic medications and is now being referred for endocrine evaluation and management. PAST MEDICAL HISTORY: History of hypertension and dyslipidemia, history of a previous CVA with no apparent residual weakness. She also has had multiple episodes of transient ischemic event as noted. History of hypothyroidism and previously on Synthroid medications for over 30 years or more and apparently over the last few months was not being given the brand name of Synthroid because of the higher copay asked by the pharmacy and so the patient was given a generic levothyroxine replacement with supervening anaphylaxis and an allergic reaction to the medication with choking and shortness of breath and had to be rushed to the emergency room thereof. FAMILY HISTORY: Positive for hypertension and heart disease. SOCIAL HISTORY: The patient lives alone, but has a very supportive daughter who lives very close by. No known substance use. REVIEW OF SYSTEMS: Admits to generalized body weakness with episodic bouts of dizziness and lightheadedness, worse in the last few weeks prior to admission with frequent near syncopal and syncopal episodes as noted. She apparently on the day of admission was found to be unresponsive, then a bystander close by her apartment called 911 and she was rushed here to the emergency room thereof for further workup and management. She also has had increasing bouts of confusion and disorientation with generalized body weakness and hypersomnolence and lethargy. She admits to bifrontal headaches and as mentioned severe bouts of dizziness and lightheadedness. She also has extremely severe deafness especially on the right side, now with a hearing aid as noted. No chest pains or palpitations, but admits to progressive shortness of breath especially on exertion. Her oral intake is variable with nausea, dyspepsia and vague upper abdominal pains. Admits to severe and habitual constipation. PHYSICAL EXAMINATION: GENERAL: This is an average-built female, in no apparent distress. VITAL SIGNS: Blood pressure of 150/90; pulse of 60 beats per minute, regular; temperature 96; respirations 20; height is 5 feet 4 inches; weight is 119 pounds. HEENT: Head normocephalic. Eyes anicteric with pink conjunctivae. Funduscopy not possible at this time. Ears, nose and throat otherwise normal. NECK: Supple. Thyroid gland shows nodule thyromegaly, but no overt thyroid nodules or bruits nor any cervical adenopathy. HEART: Adynamic precordium. S1, S2 is slow and regular. Heart rate is 60 beats per minute. Lungs are clear to auscultation. ABDOMEN: Flat, soft with positive bowel sounds. EXTREMITIES: No peripheral edema. Pulses are +2 bilaterally. LABORATORY DATA: Her T4 level is 0.29, her free T4 is 0.29 with a TSH of 75.80. ASSESSMENT: This is an 89-year-old female with hypothyroidism both historically, clinically and biochemically related to drug omission because of financial constraints related to the extremely expensive brand name preparation of Synthroid not being given by the pharmacy as noted thereof. She also has an apparent allergic and anaphylactic reaction to the generic levothyroxine medications as mentioned. She most likely has underlying autoimmune thyroiditis or Yvonne's thyroiditis with an underlying diffuse nontoxic goiter with no overt compressive symptoms at this time. PLAN OF MANAGEMENT: As discussed with the patient very loudly at bedside because of the hearing impairment, we will give her parenteral or IV levothyroxine at 100 mcg stat now and we will give her daily levothyroxine 100 mcg IV push for the next 4 days. With the near myxedema at this time, we would expect mucosal edema of the gastric mucosa with impaired absorption of any oral medications especially the oral levothyroxine preparation. So that is why we are giving preferentially the levothyroxine by IV push daily as ordered. We will obtain serial thyroid studies and also a comprehensive thyroid hormonal profile to include thyroid antibodies, which will confirm and/or indicate the presence of underlying thyroid autoimmunity. We will follow. Shahnaz Dixon MD
[2017-08-14 23:50] VITALS: O2SAT 96
--- NOTE | 2017-08-15 01:18 | CON ---
DATE: 08/14/2017 SERVICE: Cardiology. REASON FOR DICTATION: Covering for Dr. Amador Hoffman. REASON FOR CONSULTATION: Syncope. BRIEF CLINICAL HISTORY: This is an 89-year-old female with [id number], history of hypertension, CVA, TIA, left-sided weakness, mild residual weakness, hypothyroidism, hyperlipidemia, presented to emergency room after having syncopal episode. Patient states that she was trying to open the door and suddenly she fell down and passed out. No recollection. When she woke up, she was in the hospital. Denies any chest pain. Denies any shortness of breath. Denies any palpitation. Denies any prior episode of syncope, though claimed that she has a history of CVA and history of TIA, history of CVA with left-sided weakness. PAST MEDICAL HISTORY: As mentioned, history of CVA, TIA, hypothyroidism, hypertension, history of chronic renal insufficiency. Claimed there is some residual weakness in the left side, though it is not sure. TIA x4 many years ago, hyperlipidemia. SOCIAL HISTORY: Does not smoke. Denies any history of alcohol abuse. PAST SURGICAL HISTORY: Denies any prior history of surgery. CURRENT MEDICATION: Patient is taking pills for the thyroid and pills for the blood pressure. REVIEW OF SYSTEMS: As per HPI. PHYSICAL EXAMINATION: As follows: VITAL SIGNS: Temperature afebrile, heart rate 65, blood pressure 143/71. HEENT: PERRLA. Extraocular muscles intact. NECK: Supple. No carotid bruits or thyromegaly. CHEST: Clear to auscultation. HEART: S1, S2 regular. ABDOMEN: Soft. EXTREMITIES: Clubbing and cyanosis negative. LABORATORY DATA: Blood workup as follows: WBC 11.3, hemoglobin 12.6, hematocrit 37.8, platelet count 277. Chemistry shows sodium 142, potassium 3.0, chloride 102, carbon dioxide 29, anion gap of 14, BUN 21, and creatinine 1.3. Troponin remains negative at 0.01, 0.03, 0.04. TSH 75.8. IMPRESSION: Severe hypothyroidism. No evidence of acute myocardial infarction. EKG showed normal sinus, left anterior fascicular block, poor R-R progression. RECOMMENDATION: Rule out orthostatic hypotension, rule out structural heart disease. We will get echo, orthostatic hypotension. Supplement Synthroid. Supplement electrolytes. We will give gentle hydration 50 mL an hour for 10 hours and gentle tomorrow. Possibly some element of dehydration also. We will follow with you, and we will transfer the care tomorrow to Dr. Hoffman. Thank you Dr. Castro for providing us the opportunity in taking care of the patient. Michelle Kong MD
[2017-08-15 06:26] LABS: BASO # 0.04 K/mm3 (0.0-2.0); BASO % 0.4 % (0.0-3.0); EOS # 0.1 (0.0-0.7); EOS % 0.6 % (1.5-5.0); GRAN # 8.53 (1.4-6.5); GRAN % 77.3 % (50.0-68.0); HEMOGLOBIN 12.9 g/dL (12.0-16.0); LYMPH # 1.9 (1.2-3.4); LYMPH % 17.5 % (22.0-35.0); MEAN CELL VOLUME 87.1 fl (80.0-105.0); MEAN CORPUSCULAR HEMOGLOBIN 29.2 pg (25.0-35.0); MEAN CORPUSCULAR HGB CONC 33.5 g/dl (31.0-37.0); MEAN PLATELET VOLUME 8.7 fl (7.0-11.0); MONO # 0.5 (0.1-0.6); MONO % 4.2 % (1.0-6.0); RBC 4.42 10^6/uL (3.5-6.1); RED CELL DISTRIBUTION WIDTH 13.6 % (11.5-14.5)
[2017-08-15 07:00] LABS: FREE T4 0.44 ng/dL (0.78-2.19); T4 3.2 ug/dL (5.5-11.0)
[2017-08-15 07:13] LABS: ALBUMIN 3.4 g/dL (3.0-4.8); CALCIUM 9.1 mg/dL (8.4-10.5); MAGNESIUM 2.2 mg/dL (1.7-2.2)
[2017-08-15 07:28] LABS: CREATININE,RANDOM URINE 29 mg/dL
[2017-08-15] MEDS: cefTRIAXone 1 gm 1 GM/100 ML BAG IVPB SCH (10:43)
[2017-08-15 12:21] LABS: OSMOLALITY,URINE 400 mosm/kg (300-1000)
--- NOTE | 2017-08-15 12:48 | CP.PCM.PN ---
Subjective - Date & Time of Evaluation Date of Evaluation: 08/15/17 Time of Evaluation: 12:44 - Subjective Subjective: Ms. Mckay was seen and examined at the bedside. She is alert, oriented in all spheres. She is able to answer questions. She is able to sit at the bedside chair in steady position and able to feed herself. She is more concern on how to access some of her home medication since her health insurance does not cover. She is able to follow simple commands.MRA of the neck showed no significant stenosis, MRA of the head showed motion artifact on the study. Distal vessels are poorly visualized on reconstructed images. On the source images showed flow is seen in the distal branches. No stenosis or occlusion of the proximal vessels. There was no untoward events overnight. Objective - Vital Signs/Intake and Output Vital Signs (last 24 hours): Temp Pulse Resp BP Pulse Ox 98.7 F 74 19 160/70 H 96 08/15/17 05:53 08/15/17 10:00 08/15/17 05:53 08/15/17 10:42 08/15/17 05:53 Intake and Output: 08/15/17 08/15/17 06:59 18:59 Intake Total 720 Output Total 620 Balance 100 - Medications Medications: Current Medications Amlodipine Besylate (Norvasc) 10 mg PO DAILY [facility] Last Admin: 08/15/17 10:42 Dose: 10 mg Aspirin (Aspirin Chewable) 81 mg PO DAILY [facility] Last Admin: 08/15/17 10:42 Dose: 81 mg Atorvastatin Calcium (Lipitor) 40 mg PO DIN [facility] Last Admin: 08/14/17 18:24 Dose: 40 mg Diphenhydramine HCl (Benadryl) 25 mg IVP Q4H PRN PRN Reason: Allergy symptoms Famotidine (Pepcid) 40 mg PO HS [facility] Last Admin: 08/14/17 21:09 Dose: 40 mg Heparin Sodium (Porcine) (Heparin) 5,000 units SC Q12 [facility] PRN Reason: Protocol Last Admin: 08/15/17 10:42 Dose: 5,000 units Ceftriaxone Sodium (Rocephin 1 Gram Ivpb) 1 gm in 100 mls @ 100 mls/hr IVPB DAILY [facility] PRN Reason: Protocol Last Admin: 08/15/17 10:43 Dose: 100 mls/hr Levothyroxine Sodium (Synthroid) 100 mcg IVP DAILY [facility] Stop: 08/18/17 11:00 - Labs Labs: 08/15/17 05:50 08/15/17 05:50 PT 10.9 SECONDS (9.4-12.5) 08/13/17 17:45 INR 0.96 (0.93-1.08) 08/13/17 17:45 APTT 28.2 Seconds (25.1-36.5) 08/13/17 17:45 - Constitutional Appears: No Acute Distress - Head Exam Head Exam: NORMAL INSPECTION - Neurological Exam Neurological Exam: Alert, Awake, Oriented x3 Neuro motor strength exam: Left Upper Extremity: 5, Right Upper Extremity: 5, Left Lower Extremity: 5, Right Lower Extremity: 5 Additional comments: She is able to answer question and follow simple commands. Sensation remains intact. Assessment and Plan (1) Syncope Assessment & Plan: Case disscussed with Dr. Castañeda, continue all current medical, physical, and occupational therapies. Pending EEG and echocardiogram studies. Recommend treat underlying infection and GRACIELA. Status: Acute
--- NOTE | 2017-08-15 13:08 | PN ---
DATE: 08/15/2017 CARDIOLOGY FOLLOWUP SUBJECTIVE: The patient is in bed without shortness of breath. PHYSICAL EXAMINATION: VITAL SIGNS: Blood pressure is 168/75, heart rates in the 70s. NECK: Negative JVD. LUNGS: Without rales. HEART: With S1, S2 with a 3/6 systolic ejection murmur. EXTREMITIES: Without edema. LABORATORY: Hemoglobin is 12.9. Chemistries, BUN and creatinine are 21 and 1.5. The troponin is 0.04. EKG shows no acute changes. IMPRESSION: 1. Syncope. 2. Aortic stenosis. 3. Diabetes mellitus. 4. Hypertension. 5. Renal insufficiency. Given these findings, we will need an echocardiogram to rule out aortic stenosis as a cause of her syncope. Amador Hoffman MD
[2017-08-15] MEDS: Levothyroxine 100 mcg (0.1 mg) Inj IVP SCH (13:31)
[2017-08-15] MEDS: DiphenhydrAMINE 50 mg/ml Inj IVP PRN (13:35)
[2017-08-15] MEDS: Metoprolol Succinate 25 mg XL Tab PO SCH (14:41)
--- NOTE | 2017-08-15 14:56 | CP.PCM.PN ---
<Sherin Michel - Last Filed: 08/15/17 14:53> Subjective - Date & Time of Evaluation Date of Evaluation: 08/15/17 Time of Evaluation: 14:53 - Subjective Subjective: Sherin Michel, PGY1, Medicine Progress Note for Dr Jeffries: Patient seen and examined at bedside. No acute events overnight. Pt reports weakness, denies fever, chills, dizziness, abdominal pain, cp, sob. Objective - Vital Signs/Intake and Output Vital Signs (last 24 hours): Temp Pulse Resp BP Pulse Ox 98.1 F 68 18 172/87 H 96 08/15/17 12:00 08/15/17 12:00 08/15/17 12:00 08/15/17 14:41 08/15/17 05:53 Intake and Output: 08/15/17 08/15/17 06:59 18:59 Intake Total 720 Output Total 620 Balance 100 - Medications Medications: Current Medications Amlodipine Besylate (Norvasc) 10 mg PO DAILY [facility] Last Admin: 08/15/17 10:42 Dose: 10 mg Aspirin (Aspirin Chewable) 81 mg PO DAILY [facility] Last Admin: 08/15/17 10:42 Dose: 81 mg Atorvastatin Calcium (Lipitor) 40 mg PO DIN [facility] Last Admin: 08/14/17 18:24 Dose: 40 mg Diphenhydramine HCl (Benadryl) 25 mg IVP Q4H PRN PRN Reason: Allergy symptoms Last Admin: 08/15/17 13:35 Dose: 25 mg Famotidine (Pepcid) 40 mg PO HS [facility] Last Admin: 08/14/17 21:09 Dose: 40 mg Heparin Sodium (Porcine) (Heparin) 5,000 units SC Q12 [facility] PRN Reason: Protocol Last Admin: 08/15/17 10:42 Dose: 5,000 units Ceftriaxone Sodium (Rocephin 1 Gram Ivpb) 1 gm in 100 mls @ 100 mls/hr IVPB DAILY [facility] PRN Reason: Protocol Last Admin: 08/15/17 10:43 Dose: 100 mls/hr Levothyroxine Sodium (Synthroid) 100 mcg IVP DAILY [facility] Stop: 08/18/17 11:00 Last Admin: 08/15/17 13:31 Dose: 100 mcg Metoprolol Succinate (Toprol Xl) 12.5 mg PO BRK [facility] Last Admin: 08/15/17 14:41 Dose: 12.5 mg - Labs Labs: 08/15/17 05:50 08/15/17 05:50 PT 10.9 SECONDS (9.4-12.5) 08/13/17 17:45 INR 0.96 (0.93-1.08) 08/13/17 17:45 APTT 28.2 Seconds (25.1-36.5) 08/13/17 17:45 - Constitutional Appears: Non-toxic, No Acute Distress - Head Exam Head Exam: ATRAUMATIC, NORMOCEPHALIC - Eye Exam Eye Exam: EOMI, PERRL. absent: Conjunctival injection, Nystagmus, Scleral icterus Pupil Exam: NORMAL ACCOMODATION, PERRL. absent: Fixed, Irregular, Unequal - ENT Exam ENT Exam: Mucous Membranes Moist - Neck Exam Neck Exam: Full ROM - Respiratory Exam Respiratory Exam: Clear to Ausculation Bilateral. absent: Chest Wall Tenderness , Rhonchi, Wheezes, Respiratory Distress - Cardiovascular Exam Cardiovascular Exam: RRR, +S1, +S2, Murmur (+ systolic ejection murmur) - GI/Abdominal Exam GI & Abdominal Exam: Soft, Normal Bowel Sounds. absent: Distended, Tenderness, Mass, Organomegaly, Rebound - Extremities Exam Extremities Exam: Normal Inspection. absent: Calf Tenderness, Pedal Edema - Neurological Exam Neurological Exam: Alert, Awake, CN II-XII Intact, Oriented x3, Reflexes Normal. absent: Motor Sensory Deficit Neuro motor strength exam: Left Upper Extremity: 5, Right Upper Extremity: 5, Left Lower Extremity: 5, Right Lower Extremity: 5 - Psychiatric Exam Psychiatric exam: Normal Affect, Normal Mood - Skin Skin Exam: Dry, Normal Color, Warm Assessment and Plan - Assessment and Plan (Free Text) Assessment: 89 year old female with hx of CVA, TIA, hypothyroidism, HTN, HLD, presents for syncopal episode, found to have UTI, GRACIELA Syncope: - 2/2 cardiac arrhythmias vs cardiac valvular abnormalities vs TIA vs CVA vs thyroid abnormalities vs UTI/sepsis - pt afebrile, elevated BP - EKG shows HR [address]/T changes, T wave inversions. - Trop neg x 3 - ASA 81 mg, lipitor 40 mg - Head/Neck MRA: neg - Brain MRI: neg - Head CT: neg - pending EEG - Neuro checks - Neuro consulted. F/u recs - Cardio (Hoffman) consulted. F/u recs. - Echo and carotid doppler pending read - PT eval recommends home with services or balance truing inspector. UTI: - UA + for infection: Protein > 300, Glucose 250, Small blood, Nitrate + - F/u blood and urine culture - Rocephin 1gm qd Acute on chronic kidney disease: - likely dehydration vs intrinsic kidney disease vs postrenal - GFR 33 - BUN/Cr 26/1.5 (unknown baseline) --> Bun/Cr 21/1.3 - F/u urine lytes, fena - Gentle hydration 1/2 NS @ 100cc/hr x 5 hours. Hx of hypothyroidism: - Free T4: 0.29 - TSH: 75.80 - Synthroid 100mcg ivp qday ordered by Dr. Dixon Hx of HTN: - C/w home med Norvasc - Added Toprol XL 12.5 mg daily - Cont to monitor BP GI ppx: Pepcid 40mg po hs DVT ppx: SCDs, Heparin 5000u sq q12 Diet: HHD Discussed with Dr. Jeffries. <Michelle Jeffries - Last Filed: 08/17/17 14:44> Objective - Vital Signs/Intake and Output Vital Signs (last 24 hours): Temp Pulse Resp BP Pulse Ox 98.7 F 85 20 127/79 96 08/16/17 12:00 08/16/17 14:00 08/16/17 12:00 08/16/17 12:00 08/16/17 06:00 - Labs Labs: 08/16/17 05:15 08/16/17 05:15 PT 10.9 SECONDS (9.4-12.5) 08/13/17 17:45 INR 0.96 (0.93-1.08) 08/13/17 17:45 APTT 28.2 Seconds (25.1-36.5) 08/13/17 17:45 Attending/Attestation - Attestation I have personally seen and examined this patient.: Yes I have fully participated in the care of the patient.: Yes I have reviewed all pertinent clinical information, including history, physical exam and plan: Yes Notes (Text): 08/17/17 14:41 Patient was seen and examined with medical technologist clinical. Agreed with assessment and plan. 89 year old female with past medical history of CVA, hypothyroidism, hypertension and hypothyroidism who presented after syncopal episode. CT head is negative. MRI studies are negative for acute findings as well. Patient has , Echo results are pending.Cardiology evaluation is appreciated. E Coli UTI, on ceftiaxone, can be changed to oral Hypothyroidism on Levothyroxine , Narinder cyr is following. Management plan was discussed in detail with patient. Education was provided., need reinforcement.
--- NOTE | 2017-08-15 15:49 | CP.PCM.CON ---
<LillySuyapa - Last Filed: 08/15/17 15:43> History of Present Illness - History of Present Illness History of Present Illness: PGY-[address] Dawson Neurology consult: syncope and EEG Ms Mckay, 89 F, with PMH HTN, CVA with R arm weakness , TIAx4, hard of hearing using hearing aides, hypothyroidism, HLD, present to ED s/p syncopal episode x1. Pt is a poor historian and hard of hearing. Pt endorsed that while walking on the street, "her right foot turned in". As per EMS, patient was found by bystander leaning over her apartment railing, unresponsive. Pt was [place] [employer] and going to her daughter's place when her right foot "gave out" and she could not move. She then passed out and fell forward over the railing nearby, denies hitting her head/ribs/hip. She then woke up in the hospital, she was mildly confused to what happened, but is currently AAOx3. Pt states that she is allergic to synthroid and lost medication coverage, so she stopped taking it x 1 month ROS- Denies dizziness, weakness, fever, chills, nausea, vomiting, neck pain, rash, sob, cough, abdominal pain, chest pain, dysuria, hematuria, leg swelling. In ED, pt afebrile, bp elevated, elevated BUN/Cr 26/2.5, UTI positive for infection, CT head negative, CXR shows large hiatal hernia. EKg shows normal sinus rhythm without any ST/T wave changes. PMH: HTN, CVA with R arm weakness (10 years ago), TIA x4 (many years ago), hypothyroidism, HLD, hard-of hearing PSH: denies All: synthroid (throat swelling) FH: denies SH: hearing aides. denies etoh/drug/tobacco use. Lives at home alone, has daughter nearby to help her. Uses shopping cart to walk around (states that her cane is too heavy). Pharmacy: [facility] (day team: please call pharmacy to get all home meds) Past Patient History - Infectious Disease Hx of Infectious Diseases: None - Past Social History Smoking Status: Never Smoked - CARDIAC Hx Cardiac Disorders: Yes Hx Hypercholesterolemia: Yes Hx Hypertension: Yes - NEUROLOGICAL HX Cerebrovascular Accident: Yes (w/ no weakness) - ENDOCRINE/METABOLIC Hx Hypothyroidism: Yes - MUSCULOSKELETAL/RHEUMATOLOGICAL Hx Falls: Yes (syncopal episode 08/2017) - PSYCHIATRIC Hx Substance Use: No - ANESTHESIA Hx Anesthesia Reactions: No Meds Allergies/Adverse Reactions: Allergies Allergy/AdvReac Type Severity Reaction Status Date / Time levothyroxine sodium Allergy RASH Verified 08/14/17 08:07 [From Synthroid] - Medications Medications: Current Medications Amlodipine Besylate (Norvasc) 10 mg PO DAILY [facility] Last Admin: 08/15/17 10:42 Dose: 10 mg Aspirin (Aspirin Chewable) 81 mg PO DAILY [facility] Last Admin: 08/15/17 10:42 Dose: 81 mg Atorvastatin Calcium (Lipitor) 40 mg PO DIN [facility] Last Admin: 08/14/17 18:24 Dose: 40 mg Diphenhydramine HCl (Benadryl) 25 mg IVP Q4H PRN PRN Reason: Allergy symptoms Last Admin: 08/15/17 13:35 Dose: 25 mg Famotidine (Pepcid) 40 mg PO HS [facility] Last Admin: 08/14/17 21:09 Dose: 40 mg Heparin Sodium (Porcine) (Heparin) 5,000 units SC Q12 [facility] PRN Reason: Protocol Last Admin: 08/15/17 10:42 Dose: 5,000 units Ceftriaxone Sodium (Rocephin 1 Gram Ivpb) 1 gm in 100 mls @ 100 mls/hr IVPB DAILY [facility] PRN Reason: Protocol Last Admin: 08/15/17 10:43 Dose: 100 mls/hr Levothyroxine Sodium (Synthroid) 100 mcg IVP DAILY [facility] Stop: 08/18/17 11:00 Last Admin: 08/15/17 13:31 Dose: 100 mcg Metoprolol Succinate (Toprol Xl) 12.5 mg PO BRK [facility] Last Admin: 08/15/17 14:41 Dose: 12.5 mg Physical Exam - Constitutional Appears: No Acute Distress - Head Exam Head Exam: ATRAUMATIC, NORMAL INSPECTION, NORMOCEPHALIC - Eye Exam Eye Exam: EOMI, Normal appearance, PERRL Pupil Exam: NORMAL ACCOMODATION - ENT Exam ENT Exam: Mucous Membranes Moist - Neck Exam Additional comments: supple - Respiratory Exam Respiratory Exam: Clear to Auscultation Bilateral, NORMAL BREATHING PATTERN - Cardiovascular Exam Cardiovascular Exam: REGULAR RHYTHM, +S1, +S2 - GI/Abdominal Exam GI & Abdominal Exam: Normal Bowel Sounds, Soft. absent: Tenderness - Extremities Exam Extremities exam: Negative for: calf tenderness - Neurological Exam Neurological exam: Alert Additional comments: AAOx2 to person and place, not to time Motor: b/l hand tremors R more than L. Strength 4+/5 throughout Sensory: intact finger to nose coordination: slightly overshoot DTR: 1+ Results - Vital Signs Recent Vital Signs: Last Vital Signs Temp 98.1 F 08/15/17 12:00 Pulse 68 08/15/17 12:00 Resp 18 08/15/17 12:00 BP 172/87 H 08/15/17 14:41 Pulse Ox 96 08/15/17 05:53 - Labs Result Diagrams: 08/15/17 05:50 08/15/17 05:50 Labs: Laboratory Results - last 24 hr 08/15/17 08/15/17 08/15/17 05:50 05:50 05:50 WBC 11.0 RBC 4.42 Hgb 12.9 Hct 38.5 MCV 87.1 MCH 29.2 MCHC 33.5 RDW 13.6 Plt Count 249 MPV 8.7 Gran % 77.3 H Lymph % (Auto) 17.5 L Wetzel % (Auto) 4.2 Eos % (Auto) 0.6 L Baso % (Auto) 0.4 Gran # 8.53 H Lymph # (Auto) 1.9 Wetzel # (Auto) 0.5 Eos # (Auto) 0.1 Baso # (Auto) 0.04 Sodium 141 Potassium 3.4 L Chloride 107 Carbon Dioxide 25 Anion Gap 13 BUN 21 Creatinine 1.5 H Est GFR ( Amer) 40 Est GFR (Non-Af Amer) 33 Random Glucose 164 H Calcium 9.1 Phosphorus 2.8 Magnesium 2.2 Total Bilirubin 0.5 AST 36 ALT 30 Alkaline Phosphatase 64 Total Protein 6.6 Albumin 3.4 Globulin 3.2 Albumin/Globulin Ratio 1.0 L Free T4 0.44 L Thyroxine (T4) 3.2 L TSH 3rd Generation 47.10 H Urine Osmolality Ur Random Creatinine Ur Random Sodium 08/15/17 06:00 WBC RBC Hgb Hct MCV MCH MCHC RDW Plt Count MPV Gran % Lymph % (Auto) Wetzel % (Auto) Eos % (Auto) Baso % (Auto) Gran # Lymph # (Auto) Wetzel # (Auto) Eos # (Auto) Baso # (Auto) Sodium Potassium Chloride Carbon Dioxide Anion Gap BUN Creatinine Est GFR ( Amer) Est GFR (Non-Af Amer) Random Glucose Calcium Phosphorus Magnesium Total Bilirubin AST ALT Alkaline Phosphatase Total Protein Albumin Globulin Albumin/Globulin Ratio Free T4 Thyroxine (T4) TSH 3rd Generation Urine Osmolality 400 Ur Random Creatinine 29 Ur Random Sodium 99 Assessment & Plan - Assessment and Plan (Free Text) Plan: Ms. Angelica Mckay, 89 F, with PMH HTN, CVA with R arm weakness, TIA, hypothyroidism, HLD, who was brought to the ED after a syncopal episode. Her BP fluctuates from 130s to 198/95. Her Labs showed A1C 7.3, TSH 75, GRACIELA and UTI. CT scan of the head did not show any acute findings. MRI brain and MRA of the head/neck were essentially normal. The patient states she "feels fine" now. Neurology was consulted for syncope and EEG to r/o seizure Syncope likely due to severe hypothyroidism, labile blood pressure, metabolic derangement from newly diagnosed diabetes, GRACIELA and UTI causing dehydration - cancelled EEG as seizure is unlikely - Synthroid 100mcg ivp qday ordered per Dr. Dixon - maintain SBP 120-130. Avoid sudden drop of blood pressure - maintain blood glucose 140-180 in acute setting - monitor electrolytes closely and correct accordingly - continue current medical management - pending___orthostatic VS Hx CVA and TIAs Tremors likely deconditioning - continue ASA 81 mg, lipitor 40 mg - consider diabetes education - PT/OT eval s/r/d/w Dr. Dawson <Carlos Alberto Dawson - Last Filed: 08/16/17 10:29> Meds - Medications Medications: Current Medications Amlodipine Besylate (Norvasc) 10 mg PO DAILY [facility] Last Admin: 08/16/17 09:29 Dose: 10 mg Aspirin (Aspirin Chewable) 81 mg PO DAILY [facility] Last Admin: 08/16/17 09:28 Dose: 81 mg Atorvastatin Calcium (Lipitor) 40 mg PO DIN [facility] Last Admin: 08/15/17 16:55 Dose: 40 mg Diphenhydramine HCl (Benadryl) 25 mg IVP Q4H PRN PRN Reason: Allergy symptoms Last Admin: 08/16/17 09:35 Dose: 25 mg Famotidine (Pepcid) 40 mg PO HS [facility] Last Admin: 08/15/17 22:35 Dose: 40 mg Heparin Sodium (Porcine) (Heparin) 5,000 units SC Q12 [facility] PRN Reason: Protocol Last Admin: 08/16/17 09:28 Dose: 5,000 units Ceftriaxone Sodium (Rocephin 1 Gram Ivpb) 1 gm in 100 mls @ 100 mls/hr IVPB DAILY [facility] PRN Reason: Protocol Last Admin: 08/16/17 09:36 Dose: 100 mls/hr Levothyroxine Sodium (Synthroid) 100 mcg IVP DAILY [facility] Stop: 08/18/17 11:00 Last Admin: 08/16/17 09:29 Dose: 100 mcg Metoprolol Succinate (Toprol Xl) 25 mg PO BRK [facility] Results - Vital Signs Recent Vital Signs: Last Vital Signs Temp 98.0 F 08/16/17 06:00 Pulse 66 08/16/17 06:00 Resp 19 08/16/17 06:00 BP 172/80 H 08/16/17 09:29 Pulse Ox 96 08/16/17 06:00 - Labs Result Diagrams: 08/16/17 05:15 08/16/17 05:15 Labs: Laboratory Results - last 24 hr 08/15/17 08/16/17 08/16/17 06:00 05:15 05:15 WBC 10.4 RBC 4.44 Hgb 13.0 Hct 39.2 MCV 88.3 MCH 29.3 MCHC 33.2 RDW 13.8 Plt Count 268 MPV 9.0 Gran % 71.2 H Lymph % (Auto) 21.9 L Wetzel % (Auto) 5.3 Eos % (Auto) 1.0 L Baso % (Auto) 0.6 Gran # 7.41 H Lymph # (Auto) 2.3 Wetzel # (Auto) 0.6 Eos # (Auto) 0.1 Baso # (Auto) 0.06 Sodium 142 Potassium 3.9 Chloride 105 Carbon Dioxide 27 Anion Gap 14 BUN 22 H Creatinine 1.6 H Est GFR ( Amer) 37 Est GFR (Non-Af Amer) 30 Random Glucose 137 H Calcium 9.4 Phosphorus 3.3 Magnesium 2.3 H Total Bilirubin 0.6 AST 28 ALT 32 Alkaline Phosphatase 62 Total Protein 6.9 Albumin 3.4 Globulin 3.5 Albumin/Globulin Ratio 1.0 L Free T4 Thyroxine (T4) TSH 3rd Generation Urine Osmolality 400 08/16/17 05:15 WBC RBC Hgb Hct MCV MCH MCHC RDW Plt Count MPV Gran % Lymph % (Auto) Wetzel % (Auto) Eos % (Auto) Baso % (Auto) Gran # Lymph # (Auto) Wetzel # (Auto) Eos # (Auto) Baso # (Auto) Sodium Potassium Chloride Carbon Dioxide Anion Gap BUN Creatinine Est GFR ( Amer) Est GFR (Non-Af Amer) Random Glucose Calcium Phosphorus Magnesium Total Bilirubin AST ALT Alkaline Phosphatase Total Protein Albumin Globulin Albumin/Globulin Ratio Free T4 0.51 L Thyroxine (T4) 4.0 L TSH 3rd Generation 38.00 H Urine Osmolality Attending/Attestation - Attestation I have personally seen and examined this patient.: Yes I have fully participated in the care of the patient.: Yes I have reviewed all pertinent clinical information: Yes
--- NOTE | 2017-08-15 17:39 | CARD ---
APPROVED REPORT EXAM: Two-dimensional and M-mode echocardiogram with Doppler and color Doppler. INDICATION Syncope 2D DIMENSIONS Left Atrium (2D)5.0 (1.6-4.0cm)IVSd0.9 (0.7-1.1cm) LVDd4.1 (3.9-5.9cm)PWd1.3 (0.7-1.1cm) LVDs2.5 (2.5-4.0cm)FS (%) 38.0 % LVEF (%)68.7 (>50%) M-Mode DIMENSIONS Aortic Root3.60 (2.2-3.7cm)Aortic Cusp Exc.1.60 (1.5-2.0cm) Aortic Valve AoV Peak Uiuyyumz200.0cm/sAoV VTI53.8cmAO Peak GR.20mmHg LVOT Peak Tumokvke737.0cm/sLVOT VTI30.10cmAO Mean GR.12mmHg Mitral Valve MV E Xpaqzvxn26.9cm/sMV A Cquepncg323.0cm/sE/A ratio0.6 TDI Lateral E' Peak V5.95cm/sMedial E' Peak V3.22cm/sE/Lateral E'14.8 E/Medial E'27.3 Pulmonary Valve PV Peak Lilfwhbe14.9cm/sPV Peak Grad.3mmHg Tricuspid Valve TR Peak Wuywvzcr418yr/sRAP LSSICONF36toNoQP Peak Gr.41mmHg [id number] LEFT VENTRICLE The left ventricle is normal size. There is normal left ventricular wall thickness. The left ventricular function is normal. The left ventricular ejection fraction is within the normal range. There is normal LV segmental wall motion. Transmitral Doppler flow pattern is Grade I-abnormal relaxation pattern. RIGHT VENTRICLE The right ventricle is normal size. There is normal right ventricular wall thickness. The right ventricular systolic function is normal. ATRIA The left atrium is mildly dilated. The right atrium is mildly dilated. AORTIC VALVE The aortic valve is severely thickened. MITRAL VALVE The mitral valve is moderately thickened. Mitral regurgitation is mild. The mitral regurgitant jet is eccentrically directed. TRICUSPID VALVE There is mild tricuspid regurgitation. There is mild to moderate pulmonary hypertension. PULMONIC VALVE There is mild pulmonic valvular regurgitation. GREAT VESSELS The aortic root is normal in size. PERICARDIAL EFFUSION There is a trace loculated anterior pericardial effusion. <Conclusion> The left ventricle is normal size. There is normal left ventricular wall thickness. The left ventricular function is normal. The left ventricular ejection fraction is within the normal range. There is normal LV segmental wall motion. Transmitral Doppler flow pattern is Grade I-abnormal relaxation pattern. The aortic valve is severely thickened. Mitral regurgitation is mild. There is mild tricuspid regurgitation. There is mild to moderate pulmonary hypertension.
--- NOTE | 2017-08-15 21:09 | PN ---
DATE: ENDOCRINOLOGY FOLLOWUP NOTE LOCATION: Room 276. SUBJECTIVE: This is an 89-year-old female with recent overt moderate hypothyroidism with new myxedema and generalized body weakness and constitutional symptoms, now being followed closely for metabolic management. Her glycemic levels are also slightly fluctuating as noted. Her oral intakes remains quite variable with persistent episodes of hypersomnolence and lethargy. Her latest chemistry shows a BUN of 21, sodium 141, potassium 3.4, chloride 107, CO2 of 25, glucose 164, and creatinine 1.5. Her latest thyroid study showed T4 of 3.2 mcg/dL with a free T4 of 0.44 and a TSH of 47.1, which is improved overnight as noted. ASSESSMENT: This is an 89-year-old female with overt hypothyroidism noted both historically clinically and biochemically because of non-availability of her brand name Synthroid medication as mentioned. She most likely has underlying autoimmune thyroiditis with nontoxic diffuse goiter as noted. PLAN OF MANAGEMENT: We will continue the levothyroxine given as 100 mcg IV push once daily as ordered and we will repeat the thyroid studies in the morning and adjust her dose regimen according to it. As mentioned in the previous note, we do expect mild mucosal edema in the gastric area or stomach area with impaired absorption of peripheral levothyroxine medications as noted. Would continue to give the levothyroxine parenterally with 100 mcg IV push once daily to enhance better absorption of the medication and also . We will follow and advise accordingly. Shahnaz Dixon MD
[2017-08-16] MEDS: Metoprolol Succinate 25 mg XL Tab PO SCH ×2 (05:55→07:44)
[2017-08-16 06:24] LABS: BASO # 0.06 K/mm3 (0.0-2.0); BASO % 0.6 % (0.0-3.0); EOS # 0.1 (0.0-0.7); GRAN # 7.41 (1.4-6.5); GRAN % 71.2 % (50.0-68.0); LYMPH # 2.3 (1.2-3.4); LYMPH % 21.9 % (22.0-35.0); MEAN CELL VOLUME 88.3 fl (80.0-105.0); MEAN CORPUSCULAR HEMOGLOBIN 29.3 pg (25.0-35.0); MEAN CORPUSCULAR HGB CONC 33.2 g/dl (31.0-37.0); MONO # 0.6 (0.1-0.6); MONO % 5.3 % (1.0-6.0); RBC 4.44 10^6/uL (3.5-6.1); RED CELL DISTRIBUTION WIDTH 13.8 % (11.5-14.5); WHITE BLOOD COUNT 10.4 10^3/ul (4.5-11.0)
[2017-08-16 06:48] LABS: ALBUMIN 3.4 g/dL (3.0-4.8); CALCIUM 9.4 mg/dL (8.4-10.5); MAGNESIUM 2.3 mg/dL (1.7-2.2)
[2017-08-16 06:57] LABS: FREE T4 0.51 ng/dL (0.78-2.19)
[2017-08-16] MEDS ORDERED: Metoprolol Succinate 25 mg XL Tab PO SCH (09:00)
[2017-08-16] MEDS: Levothyroxine 100 mcg (0.1 mg) Inj IVP SCH (09:29)
[2017-08-16] MEDS: DiphenhydrAMINE 50 mg/ml Inj IVP PRN (09:35)
[2017-08-16] MEDS: cefTRIAXone 1 gm 1 GM/100 ML BAG IVPB SCH (09:36)
[2017-08-16 12:40] VITALS: BP 127/79; RESP 20; TEMP 98.7
--- NOTE | 2017-08-16 12:56 | CP.PCM.CON ---
Past Patient History - Infectious Disease Hx of Infectious Diseases: None - Past Social History Smoking Status: Never Smoked - CARDIAC Hx Cardiac Disorders: Yes Hx Hypercholesterolemia: Yes Hx Hypertension: Yes - NEUROLOGICAL HX Cerebrovascular Accident: Yes (w/ no weakness) - ENDOCRINE/METABOLIC Hx Hypothyroidism: Yes - MUSCULOSKELETAL/RHEUMATOLOGICAL Hx Falls: Yes (syncopal episode 08/2017) - PSYCHIATRIC Hx Substance Use: No - ANESTHESIA Hx Anesthesia Reactions: No Meds Home Medications: Home Medication List Medication Instructions Recorded Confirmed Type Aspirin [Aspirin Chewable] 81 mg PO DAILY chew 08/16/17 Rx Atorvastatin [Lipitor] 40 mg PO DIN tab 08/16/17 Rx Famotidine [Pepcid] 40 mg PO HS tab 08/16/17 Rx Metoprolol Succinate [Toprol XL] 25 mg PO BRK 30 Days tab 08/16/17 Rx Nitrofurantoin Macrocrystals 100 mg PO Q12H 3 Days cap 08/16/17 Rx [Macrobid] amLODIPine [Norvasc] 10 mg PO DAILY tab 08/16/17 Rx Allergies/Adverse Reactions: Allergies Allergy/AdvReac Type Severity Reaction Status Date / Time levothyroxine sodium Allergy RASH Verified 08/14/17 08:07 [From Synthroid] - Medications Medications: Current Medications Amlodipine Besylate (Norvasc) 10 mg PO DAILY [facility] Last Admin: 08/16/17 09:29 Dose: 10 mg Aspirin (Aspirin Chewable) 81 mg PO DAILY [facility] Last Admin: 08/16/17 09:28 Dose: 81 mg Atorvastatin Calcium (Lipitor) 40 mg PO DIN [facility] Last Admin: 08/15/17 16:55 Dose: 40 mg Cefpodoxime Proxetil (Vantin) 200 mg PO DAILY [facility] Diphenhydramine HCl (Benadryl) 25 mg IVP Q4H PRN PRN Reason: Allergy symptoms Last Admin: 08/16/17 09:35 Dose: 25 mg Famotidine (Pepcid) 40 mg PO HS [facility] Last Admin: 08/15/17 22:35 Dose: 40 mg Heparin Sodium (Porcine) (Heparin) 5,000 units SC Q12 SEFERINO PRN Reason: Protocol Last Admin: 08/16/17 09:28 Dose: 5,000 units Levothyroxine Sodium (Synthroid) 100 mcg IVP DAILY [facility] Stop: 08/18/17 11:00 Last Admin: 08/16/17 09:29 Dose: 100 mcg Metoprolol Succinate (Toprol Xl) 25 mg PO BRK SEFERINO Results - Vital Signs Recent Vital Signs: Last Vital Signs Temp 98.7 F 08/16/17 12:00 Pulse 60 08/16/17 12:00 Resp 20 08/16/17 12:00 BP 127/79 08/16/17 12:00 Pulse Ox 96 08/16/17 06:00 - Labs Result Diagrams: 08/16/17 05:15 08/16/17 05:15 Labs: Laboratory Results - last 24 hr 08/16/17 08/16/17 08/16/17 05:15 05:15 05:15 WBC 10.4 RBC 4.44 Hgb 13.0 Hct 39.2 MCV 88.3 MCH 29.3 MCHC 33.2 RDW 13.8 Plt Count 268 MPV 9.0 Gran % 71.2 H Lymph % (Auto) 21.9 L [place] % (Auto) 5.3 Eos % (Auto) 1.0 L Baso % (Auto) 0.6 Gran # 7.41 H Lymph # (Auto) 2.3 [place] # (Auto) 0.6 Eos # (Auto) 0.1 Baso # (Auto) 0.06 Sodium 142 Potassium 3.9 Chloride 105 Carbon Dioxide 27 Anion Gap 14 BUN 22 H Creatinine 1.6 H Est GFR ( Amer) 37 Est GFR (Non-Af Amer) 30 Random Glucose 137 H Calcium 9.4 Phosphorus 3.3 Magnesium 2.3 H Total Bilirubin 0.6 AST 28 ALT 32 Alkaline Phosphatase 62 Total Protein 6.9 Albumin 3.4 Globulin 3.5 Albumin/Globulin Ratio 1.0 L Free T4 0.51 L Thyroxine (T4) 4.0 L TSH 3rd Generation 38.00 H
--- NOTE | 2017-08-16 12:57 | CP.PCM.DIS ---
<Sherin Michel - Last Filed: 08/16/17 17:52> Provider - Provider Date of Admission: 08/14/17 00:16 Attending physician: Michelle Jeffries MD Consults: Christopher Dixon Time Spent in preparation of Discharge (in minutes): 35 Diagnosis - Discharge Diagnosis (1) UTI (urinary tract infection) Status: Acute (2) GRACIELA (acute kidney injury) Status: Acute (3) Diabetes mellitus Status: Acute (4) Hypothyroidism Status: Acute (5) Syncope Status: Acute Hospital Course - Lab Results Lab Results: Most Recent Lab Values WBC 10.4 10^3/ul (4.5-11.0) 08/16/17 05:15 RBC 4.44 10^6/uL (3.5-6.1) 08/16/17 05:15 Hgb 13.0 g/dL (12.0-16.0) 08/16/17 05:15 Hct 39.2 % (36.0-48.0) 08/16/17 05:15 MCV 88.3 fl (80.0-105.0) 08/16/17 05:15 MCH 29.3 pg (25.0-35.0) 08/16/17 05:15 MCHC 33.2 g/dl (31.0-37.0) 08/16/17 05:15 RDW 13.8 % (11.5-14.5) 08/16/17 05:15 Plt Count 268 10^3/uL (120.0-450.0) 08/16/17 05:15 MPV 9.0 fl (7.0-11.0) 08/16/17 05:15 Gran % 71.2 % (50.0-68.0) H 08/16/17 05:15 Lymph % (Auto) 21.9 % (22.0-35.0) L 08/16/17 05:15 [place] % (Auto) 5.3 % (1.0-6.0) 08/16/17 05:15 Eos % (Auto) 1.0 % (1.5-5.0) L 08/16/17 05:15 Baso % (Auto) 0.6 % (0.0-3.0) 08/16/17 05:15 Gran # 7.41 (1.4-6.5) H 08/16/17 05:15 Lymph # (Auto) 2.3 (1.2-3.4) 08/16/17 05:15 [place] # (Auto) 0.6 (0.1-0.6) 08/16/17 05:15 Eos # (Auto) 0.1 (0.0-0.7) 08/16/17 05:15 Baso # (Auto) 0.06 K/mm3 (0.0-2.0) 08/16/17 05:15 PT 10.9 SECONDS (9.4-12.5) 08/13/17 17:45 INR 0.96 (0.93-1.08) 08/13/17 17:45 APTT 28.2 Seconds (25.1-36.5) 08/13/17 17:45 Sodium 142 mmol/L (132-148) 08/16/17 05:15 Potassium 3.9 mmol/L (3.6-5.0) 08/16/17 05:15 Chloride 105 mmol/L (98-107) 08/16/17 05:15 Carbon Dioxide 27 mmol/L (21-33) 08/16/17 05:15 Anion Gap 14 (10-20) 08/16/17 05:15 BUN 22 mg/dL (7-21) H 08/16/17 05:15 Creatinine 1.6 mg/dl (0.7-1.2) H 08/16/17 05:15 Est GFR ( Amer) 37 08/16/17 05:15 Est GFR (Non-Af Amer) 30 08/16/17 05:15 Random Glucose 137 mg/dL (70-110) H 08/16/17 05:15 Hemoglobin A1c 7.3 % (4.2-6.5) H 08/13/17 17:45 Serum Osmolality 299 mosm/kg (272-300) 08/14/17 00:10 Calcium 9.4 mg/dL (8.4-10.5) 08/16/17 05:15 Phosphorus 3.3 mg/dL (2.5-4.5) 08/16/17 05:15 Magnesium 2.3 mg/dL (1.7-2.2) H 08/16/17 05:15 Total Bilirubin 0.6 mg/dL (0.2-1.3) 08/16/17 05:15 AST 28 U/L (14-36) 08/16/17 05:15 ALT 32 U/L (7-56) 08/16/17 05:15 Alkaline Phosphatase 62 U/L (38-126) 08/16/17 05:15 Lactate Dehydrogenase 842 U/L (333-699) H 08/13/17 17:45 Total Creatine Kinase 189 U/L (35-230) 08/13/17 17:45 Troponin I 0.04 ng/mL D 08/14/17 06:30 NT-Pro-B Natriuret Pep 913 pg/mL (0-450) H 08/14/17 06:30 Total Protein 6.9 g/dL (5.8-8.3) 08/16/17 05:15 Albumin 3.4 g/dL (3.0-4.8) 08/16/17 05:15 Globulin 3.5 gm/dL 08/16/17 05:15 Albumin/Globulin Ratio 1.0 (1.1-1.8) L 08/16/17 05:15 Triglycerides 152 mg/dL (35-160) 08/14/17 06:30 Cholesterol 205 mg/dL (130-200) H 08/14/17 06:30 LDL Cholesterol Direct 118 mg/dL (0-129) 08/14/17 06:30 HDL Cholesterol 57 mg/dL (29-60) 08/14/17 06:30 Free T4 0.51 ng/dL (0.78-2.19) L 08/16/17 05:15 Thyroxine (T4) 4.0 ug/dL (5.5-11.0) L 08/16/17 05:15 TSH 3rd Generation 38.00 mIU/mL (0.46-4.68) H 08/16/17 05:15 Urine Color Yellow (YELLOW) 08/13/17 18:56 Urine Appearance Sl cloudy (CLEAR) 08/13/17 18:56 Urine pH 6.5 (4.7-8.0) 08/13/17 18:56 Ur Specific [place] 1.020 (1.005-1.035) 08/13/17 18:56 Urine Protein >=300 mg/dL (<30 mg/dL) H 08/13/17 18:56 Urine Glucose (UA) 250 mg/dL (NEGATIVE) H 08/13/17 18:56 Urine Ketones Negative mg/dL (NEGATIVE) 08/13/17 18:56 Urine Blood Small (NEGATIVE) H 08/13/17 18:56 Urine Nitrate Positive (NEGATIVE) H 08/13/17 18:56 Urine Bilirubin Negative (NEGATIVE) 08/13/17 18:56 Urine Urobilinogen 0.2 E.U./dL (<1 E.U./dL) 08/13/17 18:56 Ur Leukocyte Esterase Negative Azeb/uL (NEGATIVE) 08/13/17 18:56 Urine RBC 0 - 2 /hpf (0-2) 08/13/17 18:56 Urine WBC 5 - 10 /hpf (0-6) 08/13/17 18:56 Ur Epithelial Cells 3 - 4 /hpf (0-5) 08/13/17 18:56 Urine Bacteria Many (NEG) 08/13/17 18:56 Urine Osmolality 400 mosm/kg (300-1000) 08/15/17 06:00 Ur Random Creatinine 29 mg/dL 08/15/17 06:00 Ur Random Sodium 99 meq/L 08/15/17 06:00 - Hospital Course Hospital Course: 89 year old female, with PMH HTN, CVA, TIA, hypothyroidism, HLD, present to ED s /p syncopal episode x1. Pt admitted for syncope workup, GRACIELA, UTI. Pt also found to be hypothyroid. Pt discontinued taking her synthroid at home for past 1 month. Her TSH in hospital was 75.8 and FT4 was 0.44. Dr Dixon (Endocrinology) was consutled, started on 100 mcg IV levothyroxine daily. Pt started on IV antibiotics for UTI. For syncope workup, pt's EKg shows normal sinus rhythm without any ST/T wave changes. Was placed on tele monitoring with no arrythmias seen. Ct head, MRA head/neck, MRI brain were all negative. Echocardiogram showed normal EF but aortic stenosis was seen with 1.6 cm aortic valve area and aortic peak velocity of 20 mmHg. Pt's hemoglobin A1C was found to be elevated at 7.3, pt started on Glipizide (due to high creatinine - did not start on Metformin), given a script for glucometer, told to monitor blood glucose BID. Diabetic nurse educator at bedside to give instructions on diabetic diet and glucometer testing to patient and grandson. Pt to follow up with PMTeena and Dr Dixon (Endo) in 1 week. Urine culture grew E coli, which was sensitive to Macrobid. Pt thus discharged with PO Macrobid. Discharge Exam - Head Exam Head Exam: ATRAUMATIC, NORMAL INSPECTION, NORMOCEPHALIC - Eye Exam Eye Exam: EOMI, PERRL. absent: Conjunctival injection, Scleral icterus Pupil Exam: NORMAL ACCOMODATION, PERRL. absent: Fixed, Irregular - ENT Exam ENT Exam: Mucous Membranes Moist - Neck Exam Neck exam: Full Rom - Respiratory Exam Respiratory Exam: Clear to PA & Lateral, NORMAL BREATHING PATTERN. absent: Accessory Muscle Use, Rales, Rhonchi - Cardiovascular Exam Cardiovascular Exam: RRR, +S1, +S2. absent: Systolic Murmur - GI/Abdominal Exam GI & Abdominal Exam: Normal Bowel Sounds, Soft. absent: Diminished Bowel Sounds , Distended, Guarding, Rebound, Tenderness - Extremities Exam Extremities exam: normal inspection - Back Exam Back exam: NORMAL INSPECTION - Neurological Exam Neurological exam: Alert, Oriented x3 - Psychiatric Exam Psychiatric exam: Normal Affect, Normal Mood - Skin Skin Exam: Dry, Normal Color, Warm Discharge Plan - Discharge Medications Prescriptions: Glipizide [Glipizide ER] 2.5 mg PO DAILY #30 tab.er.24 Levothyroxine [Synthroid] 100 mcg PO DAILY #30 tab Metoprolol Succinate [Toprol XL] 25 mg PO BRK 30 Days tab Nitrofurantoin Macrocrystals [Macrobid] 100 mg PO Q12H 3 Days cap - Follow Up Plan Condition: STABLE Disposition: HOME/ ROUTINE Instructions: Urinary Tract Infection in Women (DC), Syncope (GEN), How to Check Your Blood Sugar (DC), How to Check Your Blood Sugar (GEN), Hypothyroidism (GEN), Diabetes Mellitus Type 2 in Adults (DC) Additional Instructions: - Take Macrobid for 3 days at home. - You were found to have diabetes as your hemoglobin A1C was high at 7.3. Please adhere to the diabetic diet as told by the nurse. - Prescription for glucometer and glyburide is given. You can measure your blood glucose two times a day. If blood sugars <100, do not take Glyburide. - Take Levothyroxine as prescribed. F/u with Dr Dixon/endocrinology outpatient in 1 week. - Take Metorprolol for your blood pressure. Continue with your Norvasc as you were previously taking. - Follow up with PMD in 1 week. - Return to ER if any concerns. <Michelle Jeffries - Last Filed: 08/17/17 14:49> Provider - Provider Date of Admission: 08/14/17 00:16 Attending physician: Michelle Jeffries MD Hospital Course - Lab Results Lab Results: Most Recent Lab Values WBC 10.4 10^3/ul (4.5-11.0) 08/16/17 05:15 RBC 4.44 10^6/uL (3.5-6.1) 08/16/17 05:15 Hgb 13.0 g/dL (12.0-16.0) 08/16/17 05:15 Hct 39.2 % (36.0-48.0) 08/16/17 05:15 MCV 88.3 fl (80.0-105.0) 08/16/17 05:15 MCH 29.3 pg (25.0-35.0) 08/16/17 05:15 MCHC 33.2 g/dl (31.0-37.0) 08/16/17 05:15 RDW 13.8 % (11.5-14.5) 08/16/17 05:15 Plt Count 268 10^3/uL (120.0-450.0) 08/16/17 05:15 MPV 9.0 fl (7.0-11.0) 08/16/17 05:15 Gran % 71.2 % (50.0-68.0) H 08/16/17 05:15 Lymph % (Auto) 21.9 % (22.0-35.0) L 08/16/17 05:15 [place] % (Auto) 5.3 % (1.0-6.0) 08/16/17 05:15 Eos % (Auto) 1.0 % (1.5-5.0) L 08/16/17 05:15 Baso % (Auto) 0.6 % (0.0-3.0) 08/16/17 05:15 Gran # 7.41 (1.4-6.5) H 08/16/17 05:15 Lymph # (Auto) 2.3 (1.2-3.4) 08/16/17 05:15 [place] # (Auto) 0.6 (0.1-0.6) 08/16/17 05:15 Eos # (Auto) 0.1 (0.0-0.7) 08/16/17 05:15 Baso # (Auto) 0.06 K/mm3 (0.0-2.0) 08/16/17 05:15 PT 10.9 SECONDS (9.4-12.5) 08/13/17 17:45 INR 0.96 (0.93-1.08) 08/13/17 17:45 APTT 28.2 Seconds (25.1-36.5) 08/13/17 17:45 Sodium 142 mmol/L (132-148) 08/16/17 05:15 Potassium 3.9 mmol/L (3.6-5.0) 08/16/17 05:15 Chloride 105 mmol/L (98-107) 08/16/17 05:15 Carbon Dioxide 27 mmol/L (21-33) 08/16/17 05:15 Anion Gap 14 (10-20) 08/16/17 05:15 BUN 22 mg/dL (7-21) H 08/16/17 05:15 Creatinine 1.6 mg/dl (0.7-1.2) H 08/16/17 05:15 Est GFR ( Amer) 37 08/16/17 05:15 Est GFR (Non-Af Amer) 30 08/16/17 05:15 Random Glucose 137 mg/dL (70-110) H 08/16/17 05:15 Hemoglobin A1c 7.3 % (4.2-6.5) H 08/16/17 05:15 Serum Osmolality 299 mosm/kg (272-300) 08/14/17 00:10 Calcium 9.4 mg/dL (8.4-10.5) 08/16/17 05:15 Phosphorus 3.3 mg/dL (2.5-4.5) 08/16/17 05:15 Magnesium 2.3 mg/dL (1.7-2.2) H 08/16/17 05:15 Total Bilirubin 0.6 mg/dL (0.2-1.3) 08/16/17 05:15 AST 28 U/L (14-36) 08/16/17 05:15 ALT 32 U/L (7-56) 08/16/17 05:15 Alkaline Phosphatase 62 U/L (38-126) 08/16/17 05:15 Lactate Dehydrogenase 842 U/L (333-699) H 08/13/17 17:45 Total Creatine Kinase 189 U/L (35-230) 08/13/17 17:45 Troponin I 0.04 ng/mL D 08/14/17 06:30 NT-Pro-B Natriuret Pep 913 pg/mL (0-450) H 08/14/17 06:30 Total Protein 6.9 g/dL (5.8-8.3) 08/16/17 05:15 Albumin 3.4 g/dL (3.0-4.8) 08/16/17 05:15 Globulin 3.5 gm/dL 08/16/17 05:15 Albumin/Globulin Ratio 1.0 (1.1-1.8) L 08/16/17 05:15 Triglycerides 152 mg/dL (35-160) 08/14/17 06:30 Cholesterol 205 mg/dL (130-200) H 08/14/17 06:30 LDL Cholesterol Direct 118 mg/dL (0-129) 08/14/17 06:30 HDL Cholesterol 57 mg/dL (29-60) 08/14/17 06:30 Free T4 0.51 ng/dL (0.78-2.19) L 08/16/17 05:15 Thyroxine (T4) 4.0 ug/dL (5.5-11.0) L 08/16/17 05:15 TSH 3rd Generation 38.00 mIU/mL (0.46-4.68) H 08/16/17 05:15 Urine Color Yellow (YELLOW) 08/13/17 18:56 Urine Appearance Sl cloudy (CLEAR) 08/13/17 18:56 Urine pH 6.5 (4.7-8.0) 08/13/17 18:56 Ur Specific [place] 1.020 (1.005-1.035) 08/13/17 18:56 Urine Protein >=300 mg/dL (<30 mg/dL) H 08/13/17 18:56 Urine Glucose (UA) 250 mg/dL (NEGATIVE) H 08/13/17 18:56 Urine Ketones Negative mg/dL (NEGATIVE) 08/13/17 18:56 Urine Blood Small (NEGATIVE) H 08/13/17 18:56 Urine Nitrate Positive (NEGATIVE) H 08/13/17 18:56 Urine Bilirubin Negative (NEGATIVE) 08/13/17 18:56 Urine Urobilinogen 0.2 E.U./dL (<1 E.U./dL) 08/13/17 18:56 Ur Leukocyte Esterase Negative Azeb/uL (NEGATIVE) 08/13/17 18:56 Urine RBC 0 - 2 /hpf (0-2) 08/13/17 18:56 Urine WBC 5 - 10 /hpf (0-6) 08/13/17 18:56 Ur Epithelial Cells 3 - 4 /hpf (0-5) 08/13/17 18:56 Urine Bacteria Many (NEG) 08/13/17 18:56 Urine Osmolality 400 mosm/kg (300-1000) 08/15/17 06:00 Ur Random Creatinine 29 mg/dL 08/15/17 06:00 Ur Random Sodium 99 meq/L 08/15/17 06:00 Thyroperoxidase Ab <1 IU/mL (<9) 08/15/17 05:50 Thyroglobulin Antibody <1 IU/mL (< OR = 1) 08/15/17 05:50 Attending/Attestation - Attestation I have personally seen and examined this patient.: Yes I have fully participated in the care of the patient.: Yes I have reviewed all pertinent clinical information, including history, physical exam and plan: Yes Notes (Text): 08/17/17 14:45 Patient was seen and examined with coroner/medical examiner. Agreed with assessment and plan. 89 year old female with past medical history of CVA, hypothyroidism, hypertension and hypothyroidism who presented after syncopal episode. CT head is negative. MRI studies was negative for acute findings Echo results were reviewed.Cardiology follow up is appreciated. E Coli UTI, afebrile, blood cultures are negative Hypothyroidism on Levothyroxine , will follow up with endocrinology. New Onset DM, started on Glyburide 2.5 mg daily, need to keep record of blood sugars for PCP. Education was given prior to discharge. Management plan was discussed in detail with patient. and also with son over the phone by coroner/medical examiner, Education was provided., need reinforcement.
--- NOTE | 2017-08-16 16:38 | US ---
PROCEDURE: Bilateral carotid artery duplex ultrasound HISTORY: Carotid stenosis syncope PHYSICIAN(S): Amador Mcduffie MD. TECHNIQUE: Duplex sonography and color-flow Doppler were used to evaluate the carotid bifurcations and limited segments of the vertebral arteries bilaterally. FINDINGS: The exam is somewhat limited by tortuous vessels. There is mild to moderate smooth heterogeneous echogenic plaque noted at the carotid bifurcations bilaterally. The peak systolic velocity in the proximal right internal carotid artery is 64 cm/sec. This corresponds to a 20 to 39% proximal right ICA stenosis. Normal systolic velocities are noted in the proximal right external carotid artery. There is antegrade flow in the dominant right vertebral artery. The peak systolic velocity in the proximal left internal carotid artery is 78 cm/sec. This corresponds to a 20 to 39% proximal left ICA stenosis. Normal systolic velocities are noted in the proximal left external carotid artery. There is antegrade flow in the left vertebral artery. IMPRESSION: 1. Bilateral 20-39% proximal ICA stenoses. 2. Antegrade flow in both vertebral arteries.
[2017-08-16 16:51] VITALS: PULSE 85
--- NOTE | 2017-08-16 19:05 | PN ---
DATE: ENDOCRINOLOGY FOLLOWUP NOTE LOCATION: Room 276. SUBJECTIVE: This is an 89-year-old female with recent overt hypothyroidism both historically, clinically and biochemically with associated altered mental status, generalized body weakness and underlying constitutional symptoms, which are improving slowly as noted. The patient is more alert and responsive at this time with less hypersomnolence and lethargy as noted. She has received parenteral levothyroxine therapy as given. She had an apparent anaphylactic like reaction to generic levothyroxine given in the outpatient until the patient actually stopped her levothyroxine for over a month developing this aforementioned moderate hypothyroidism as noted. At this time, the latest chemistry showed a BUN of 22, sodium 142, potassium 3.9, chloride 105, CO2 of 27, glucose 137 and creatinine 1.6. Her hemoglobin A1c, which was obtained today was 7.3 indicative of early overt type 2 diabetes. She was previously on metformin therapy, but because of the advanced age and reduced GFR, we would be careful not to give the metformin and presently give her other oral hypoglycemic drug therapy in very low dosing regimen. We would recommend Januvia with less hypoglycemia at the low dose of 50 mg daily, but because of the insurance constraints, we would give her a low dose generic glipizide at 2.5 mg b.i.d. with meals to start today. We will also switch her over now to oral levothyroxine 100 mcg p.o. once daily in the morning. We will be stopping her IV or parenteral levothyroxine by tomorrow after the last dose in the morning. We will obtain serial chemistries and supplement accordingly as needed. We will follow. Shahnaz Dixon MD
--- NOTE | 2017-08-16 19:08 | PN ---
DATE: 08/16/2017 CARDIOLOGY FOLLOWUP SUBJECTIVE: The patient is sitting in a chair without issues. PHYSICAL EXAMINATION: VITAL SIGNS: Blood pressure 126/79, heart rates in the 60s. NECK: Negative JVD. LUNGS: Without rales. HEART: Reveal S1, S2 with 2/6 systolic ejection murmur. EXTREMITIES: Without edema. LABORATORY DATA: Hemoglobin is 13.0. Chemistries; BUN and creatinine is 22 and 1.6. Glucose is 137. Echocardiogram reveals good LV function with an EF of 68%. The aortic valve is sclerotic, maximum gradient is 20 mmHg with a mean gradient of 12 mmHg. There is [id number] pulmonary hypertension. IMPRESSION: 1. Syncope. 2. No evidence for aortic stenosis. 3. Aortic sclerosis. 4. Hypertension. 5. Renal insufficiency. PLAN: Given these findings, there is no cardiac cause of her syncope that can be identified. Amador Hoffman MD
[2017-08-17] MEDS ORDERED: Cefpodoxime (Vantin) 200 mg Tab PO SCH (10:00)
== END 2017-08-16 18:24 | disposition home health service (06) | DRG 644 ==
LOC: ED 17:10 → ERH 08-14 00:16 → 2RSO 08-14 01:34
PROVIDERS: ADMIT Hospitalist; ATTEND Internal Medicine
DX: E06.3 Autoimmune thyroiditis (principal); N39.0 Urinary tract infection, site not specified; N17.9 Acute kidney failure, unspecified; E04.0 Nontoxic diffuse goiter; E86.0 Dehydration; E11.22 Type 2 diabetes mellitus with diabetic chronic kidney disease; I27.20 Pulmonary hypertension, unspecified; K44.9 Diaphragmatic hernia without obstruction or gangrene; R55 Syncope and collapse; I12.9 Hypertensive chronic kidney disease with stage 1 through stage 4 chronic kidney disease, or unspecified chronic kidney disease; N18.9 Chronic kidney disease, unspecified; B96.20 Unspecified Escherichia coli [E. coli] as the cause of diseases classified elsewhere; I70.0 Atherosclerosis of aorta; H91.90 Unspecified hearing loss, unspecified ear; E78.5 Hyperlipidemia, unspecified; Z97.4 Presence of external hearing-aid; Z91.14 Patient's other noncompliance with medication regimen; Z79.84 Long term (current) use of oral hypoglycemic drugs; Z86.73 Personal history of transient ischemic attack (TIA), and cerebral infarction without residual deficits

== ENCOUNTER 2017-09-29 20:03 | Observation (INO) | payer MEDICARE, OTHER ==
--- NOTE | 2017-09-29 20:25 | ED PDOC ---
Arrival/HPI - General Chief Complaint: Lower Extremity Problem/Injury Time Seen by Provider: 09/29/17 20:23 Historian: Patient, EMS - History of Present Illness Narrative History of Present Illness (Text): 09/29/17 20:25 pt p/w + ~ 1 month onset of right leg stiffness/cramping?, with right foot/ distal leg numbness/tingling; pt states symptoms would come and go and causes her to ? fall; pt states she is afraid to ambulate outside of her home as a result of this symptom; pt states 1 month ago she had a syncopal fall; pt states over the last 1-2 weeks symptoms of right foot/leg stiffness may have worsened; pt states no fever/chills/sweats, no cp/sob/palpitations, no abd pain , no n/v, no arm/leg numbness/tingling, no urinary/bowel changes, no incontinence, no rashes, no gross bleeding; pt states no slurr speech, no vision changes; pt's daughter became alarmed today and noted pt was not herself today; she called the EMS/911 for patient today and pt was brought to ED for further eval/exam; pt is here for further eval. PCP: jessica pt lives alone pt is right hand dominate Time/Duration: Other (off and on for a month; worsening symptoms over the last 1 -2 weeks) Symptom Onset: Gradual Symptom Course: Unchanged Quality: Other (stiffness) Severity Level: 5 Activities at Onset: Other (when ambulating) Context: Walking, Home Past Medical History - Provider Review Nursing Documentation Reviewed: Yes - Travel History Have you recently traveled outside [place] w/in the past 3 mons?: No - Past History Past History: No Previous - Infectious Disease Hx of Infectious Diseases: None - Cardiac Hx Hypertension: Yes - Neurological HX Cerebrovascular Accident: Yes (w/ no weakness) - Endocrine/Metabolic Hx Hypothyroidism: Yes - Musculoskeletal/Rheumatological Hx Falls: Yes (syncopal episode 08/2017) - Psychiatric Hx Substance Use: No - Anesthesia Hx Anesthesia: No Hx Anesthesia Reactions: No Hx Malignant Hyperthermia: No Family/Social History - Physician Review Nursing Documentation Reviewed: Yes Family/Social History: No Known Family HX Smoking Status: Unknown If Ever Smoked Hx Alcohol Use: No Hx Substance Use: No Hx Substance Use Treatment: No Allergies/Home Meds Allergies/Adverse Reactions: Allergies levothyroxine sodium [From Synthroid] Allergy (Verified 09/29/17 20:11) RASH Home Medications: Home Meds Medication Instructions Recorded Confirmed Clopidogrel [Plavix] 09/29/17 Levothyroxine [Synthroid] 150 mcg PO DAILY 09/29/17 09/29/17 Review of Systems - Review of Systems Constitutional: Normal Eyes: Normal ENT: Normal Respiratory: Normal Cardiovascular: Normal Gastrointestinal: Normal Genitourinary Female: Normal Musculoskeletal: Other (right foot/leg stiffness/cramps, ? numbness/tingling) Skin: Normal Neurological: Normal Endocrine: Normal Hemo/Lymphatic: Normal Psychiatric: Normal Physical Exam Vital Signs Reviewed: Yes Vital Signs Temp Pulse Resp BP Pulse Ox 09/29/17 22:47 98.2 F 74 17 176/92 H 100 09/29/17 22:27 187/95 H 09/29/17 22:15 74 17 187/95 H 100 09/29/17 20:04 98.4 F 91 H 18 190/85 H 98 Temperature: Afebrile Blood Pressure: Hypertensive Pulse: Regular Respiratory Rate: Normal Appearance: Positive for: Well-Appearing, Non-Toxic, Comfortable, Other ( follows command with ease, NAD, comfortable, cooperative, GCS = 15, oriented x 3 ) Pain Distress: None Mental Status: Positive for: Alert and Oriented X 3 - Systems Exam Head: Present: Atraumatic, Normocephalic, Other (bi-temporal wasting) Pupils: Present: PERRL, Other (vision WNL, no nystagmus, no photophobia) Extroacular Muscles: Present: EOMI Conjunctiva: Present: Normal Ears: Present: Normal Mouth: Present: Moist Mucous Membranes, Other (poor dentitions, no drooling/ stridor, no exudate/lesions, uvula/tongue are midline) Pharnyx: Present: Normal Nose (External): Present: Atraumatic Nose (Internal): Present: Normal Inspection Neck: Present: Normal Range of Motion, Trachea Midline. No: MIDLINE TENDERNESS Respiratory/Chest: Present: Clear to Auscultation, Good Air Exchange, Other (WNL ) Cardiovascular: Present: Regular Rate and Rhythm, Normal S1, S2. No: Murmurs Abdomen: Present: Normal Bowel Sounds, Other (well nourished/thin female, no focal tenderness) Back: Present: Normal Inspection. No: CVA Tenderness, Midline Tenderness Upper Extremity: Present: Normal Inspection, Normal ROM, NORMAL PULSES, Neurovascularly Intact, Capillary Refill < 2s Lower Extremity: Present: Normal Inspection, NORMAL PULSES, Normal ROM, Neurovascularly Intact, Capillary Refill < 2 s, Other (intact ROM, strength 5/5 grossly intact in all limbs, neurovasc intact b/l, no magda's sign, no pitting edema b/l). No: CALF TENDERNESS, Magda's Sign Neurological: Present: GCS=15, CN II-XII Intact, Speech Normal, Other (no slurr speech, no facial asymmetries, NIH stroke scale ~ 0) Skin: Present: Warm, Dry, Normal Color, Other (cap refill ~ 1sec, no ulcerations , no petechiae, no rashes) Psychiatric: Present: Alert, Oriented x 3 Medical Decision Making ED Course and Treatment: 09/29/17 20:15 Impression: AMS?, ambulatory dysfunction i have consider all the differential diagnosis regarding pt's chief medical complaints/clinical findings, including but are not limited to: AMS?, ambulatory dysfunction A/P: AMS?, ambulatory dysfunction - ct - xray - labs - iv - ua - observe - supportive care 09/29/17 20:[address] lopez, made aware, agrees with admission/observation, would like to consult Dr Dawson in the morning 09/29/17 21:30 pt is doing well pt is currently comfortable pt is made aware of her medical results agrees with admission/observation Re-evaluation Time: 21:26 Reassessment Condition: Unchanged - Lab Interpretations I have reviewed the lab results: Yes Interpretation: Abnormal lab values (elevated GLUC) - RAD Interpretation Narrative RAD Interpretations (Text): 09/29/17 22:35 CXR - rotated, cardiomeagly, NAD 09/30/17 11:41 CT Scan HEAD W/O CONTRAST Exam Date: 09/29/17 This imaging exam was performed at [facility] EXAM: CT Head Without Intravenous Contrast EXAM DATE/TIME: 09/29/2017 8:33 PM CLINICAL HISTORY: 89 years old, female; Signs and symptoms; Altered mental status/memory loss; Additional info: Transient AMS TECHNIQUE: Axial computed tomography images of the head/brain without intravenous contrast. All CT scans at this facility use one or more dose reduction techniques, viz.: automated exposure control; ma/kV adjustment per patient size (including targeted exams where dose is matched to indication; i.e. head); or iterative reconstruction technique. Coronal and sagittal reformatted images were created and reviewed. COMPARISON: CT - HEAD W/O CONTRAST 2017-08-13 20:30 FINDINGS: There is atrophy. There is chronic small vessel ischemic disease. Bilateral basal ganglia calcifications. Calcification along the tentorium and falx. There is no hemorrhage or edema. Mucosal thickening right maxillary sinus decreased from prior. Deformity of the right temporomandibular joint unchanged from prior. IMPRESSION: No acute findings. No significant change. Dictated By: Frances Hernandez MD Dictated Date/Time: 09/29/172235 Radiology Orders: 09/29/17 20:24 KNEE RIGHT 2 VIEWS (AP & LAT) [RAD] Stat Environmental Marketing Representative: ED Physician, Radiologist - EKG Interpretation EKG Interpretation (Text): 09/29/17 21:26 Sinus rhythm at 75 bpm, LAD, + ectopy, voltage criteria LVH, non-specific st-t changes, ABNL EKG; unchanged compare with old ekg 08/2017 Interpreted by ED Physician: Yes Type: 12 lead EKG Comparison: Similar to previous EKG - Medication Orders Current Medication Orders: Acetaminophen (Tylenol 325mg Tab) 650 mg PO Q6H PRN PRN Reason: Pain, Mild (1-3) Amlodipine Besylate (Norvasc) 10 mg PO DAILY [facility] Last Admin: 09/30/17 09:10 Dose: 10 mg MAR Blood Pressure Document 09/30/17 09:10 ML (Rec: 09/30/17 09:10 ML [facility]) Blood Pressure Blood Pressure (100/60-150/90) 155/76 Aspirin (Aspirin Chewable) 81 mg PO DAILY [facility] Last Admin: 09/30/17 09:10 Dose: 81 mg Atorvastatin Calcium (Lipitor) 10 mg PO DIN [facility] Clonidine HCl (Catapres) 0.1 mg PO Q6 PRN PRN Reason: SPB > 150 Clopidogrel Bisulfate (Plavix) 75 mg PO DAILY [facility] Last Admin: 09/30/17 09:10 Dose: 75 mg Famotidine (Pepcid) 20 mg PO HS [facility] Glipizide (Glucotrol Xl) 2.5 mg PO DAILY [facility] Last Admin: 09/30/17 09:10 Dose: 2.5 mg Home Med (Home Med) 0 unit PO DAILY [facility] Last Admin: 09/30/17 09:11 Dose: Potassium Chloride (Potassium Chloride 10 Meq/100 Ml) 10 meq in 100 mls @ 50 mls/hr IVPB ONCE ONE Stop: 09/30/17 11:57 Last Admin: 09/30/17 10:20 Dose: 50 mls/hr eMAR Start Stop Document 09/30/17 10:20 ML (Rec: 09/30/17 10:21 ML [facility]) Intravenous Solution Start Date 09/30/17 Start Time 10:20 End Date 09/30/17 End time 11:30 Total Infusion Time 70 Metoprolol Succinate (Toprol Xl) 25 mg PO BRK [facility] Last Admin: 09/30/17 09:10 Dose: 25 mg Oxycodone/Acetaminophen (Percocet 5/325 Mg Tab) 1 tab PO Q6H PRN PRN Reason: Pain, moderate (4-7) Stop: 10/03/17 00:13 Discontinued Medications Amlodipine Besylate (Norvasc) 10 mg PO STAT STA Stop: 09/29/17 22:19 Last Admin: 09/29/17 22:27 Dose: 10 mg MAR Blood Pressure Document 09/29/17 22:27 IT (Rec: 09/29/17 22:27 IT [facility]) Blood Pressure Blood Pressure (100/60-150/90) 187/95 Aspirin (Aspirin) 325 mg PO STAT STA Stop: 09/29/17 20:35 Last Admin: 09/29/17 20:56 Dose: 325 mg Clonidine HCl (Catapres) 0.1 mg PO STAT STA Stop: 09/30/17 00:19 Last Admin: 09/30/17 00:29 Dose: 0.1 mg MAR Pulse and Blood Pressure Document 09/30/17 00:29 RM (Rec: 09/30/17 00:29 RM [id number]) Pulse Pulse Rate (60-90) 72 Blood Pressure Blood Pressure (100/60-150/90) 177/85 Clonidine HCl (Catapres) 0.1 mg PO PRN PRN PRN Reason: SPB > 150 Potassium Chloride (K-Dur 20 Meq Er Tab) 40 meq PO ONCE ONE Stop: 09/30/17 10:00 Last Admin: 09/30/17 10:20 Dose: 40 meq Disposition/Present on Arrival - Present on Arrival Any Indicators Present on Arrival: No History of DVT/PE: No History of Uncontrolled Diabetes: No Urinary Catheter: No History of Decub. Ulcer: No History Surgical Site Infection Following: None - Disposition Have Diagnosis and Disposition been Completed?: Yes Diagnosis: Ambulatory dysfunction, Numbness and tingling of right leg, Weakness Disposition: HOSPITALIZED Disposition Time: 20:36 Patient Plan: Admission, Observation Patient Problems: Current Active Problems Problem Status Onset Ambulatory dysfunction Acute Numbness and tingling of right leg Acute Weakness Acute Condition: STABLE
[2017-09-29 21:05] LABS: BASO # 0.07 K/mm3 (0.0-2.0); BASO % 0.7 % (0.0-3.0); EOS # 0.2 (0.0-0.7); EOS % 1.7 % (1.5-5.0); GRAN # 6.73 (1.4-6.5); GRAN % 71.1 % (50.0-68.0); HEMOGLOBIN 14.1 g/dL (12.0-16.0); LYMPH # 2.1 (1.2-3.4); LYMPH % 21.8 % (22.0-35.0); MEAN CELL VOLUME 85.2 fl (80.0-105.0); MEAN CORPUSCULAR HEMOGLOBIN 29.9 pg (25.0-35.0); MEAN CORPUSCULAR HGB CONC 35.1 g/dl (31.0-37.0); MEAN PLATELET VOLUME 8.5 fl (7.0-11.0); MONO # 0.5 (0.1-0.6); MONO % 4.7 % (1.0-6.0); RBC 4.72 10^6/uL (3.5-6.1); RED CELL DISTRIBUTION WIDTH 13.2 % (11.5-14.5); WHITE BLOOD COUNT 9.5 10^3/ul (4.5-11.0)
[2017-09-29 21:15] LABS: ALB/GLOB RATIO 1.1 (1.1-1.8); ALBUMIN 4.1 g/dL (3.0-4.8)
[2017-09-29 21:26] LABS: TROPONIN I 0.02 ng/mL
--- NOTE | 2017-09-29 22:36 | CT ---
EXAM: CT Head Without Intravenous Contrast EXAM DATE/TIME: 09/29/2017 8:33 PM CLINICAL HISTORY: 89 years old, female; Signs and symptoms; Altered mental status/memory loss; Additional info: Transient AMS TECHNIQUE: Axial computed tomography images of the head/brain without intravenous contrast. All CT scans at this facility use one or more dose reduction techniques, viz.: automated exposure control; ma/kV adjustment per patient size (including targeted exams where dose is matched to indication; i.e. head); or iterative reconstruction technique. Coronal and sagittal reformatted images were created and reviewed. COMPARISON: CT - HEAD W/O CONTRAST 2017-08-13 20:30 FINDINGS: There is atrophy. There is chronic small vessel ischemic disease. Bilateral basal ganglia calcifications. Calcification along the tentorium and falx. There is no hemorrhage or edema. Mucosal thickening right maxillary sinus decreased from prior. Deformity of the right temporomandibular joint unchanged from prior. IMPRESSION: No acute findings. No significant change.
[2017-09-29 22:45] LABS: URINE APPEARANCE CLEAR (CLEAR); URINE BILIRUBIN NEGATIVE (NEGATIVE); URINE BLOOD TRACE-INTACT (NEGATIVE); URINE COLOR YELLOW (YELLOW); URINE GLUCOSE (UA) >=1000 mg/dL (NEGATIVE); URINE LEUKOCYTE ESTERASE NEGATIVE Leu/uL (NEGATIVE); URINE PROTEIN 100 mg/dL (<30 mg/dL); URINE UROBILINOGEN 0.2 E.U./dL (<1 E.U./dL)
[2017-09-29 22:48] LABS: URINE WBC 0 - 2 /hpf (0-6)
[2017-09-30] MEDS ORDERED: Oxycodone/Acetaminophen 5/325 mg Tab PO PRN (00:12)
[2017-09-30 04:28] VITALS: RESP 20; TEMP 97.6; BMI 22.2
[2017-09-30 07:16] LABS: BASO # 0.09 K/mm3 (0.0-2.0); EOS # 0.3 (0.0-0.7); EOS % 3.3 % (1.5-5.0); GRAN # 4.8 (1.4-6.5); GRAN % 53.3 % (50.0-68.0); HEMOGLOBIN 11.9 g/dL (12.0-16.0); LYMPH # 3.3 (1.2-3.4); LYMPH % 37.1 % (22.0-35.0); MEAN CELL VOLUME 85.6 fl (80.0-105.0); MEAN CORPUSCULAR HGB CONC 33.8 g/dl (31.0-37.0); MEAN PLATELET VOLUME 8.6 fl (7.0-11.0); MONO # 0.5 (0.1-0.6); MONO % 5.3 % (1.0-6.0); RBC 4.11 10^6/uL (3.5-6.1); RED CELL DISTRIBUTION WIDTH 13.3 % (11.5-14.5)
[2017-09-30 07:47] LABS: T4 3.7 ug/dL (5.5-11.0)
[2017-09-30 07:50] LABS: ALBUMIN 3.1 g/dL (3.0-4.8); CALCIUM 9.4 mg/dL (8.4-10.5)
[2017-09-30 07:52] VITALS: PULSE 55; O2SAT 96
[2017-09-30] MEDS ORDERED: Metoprolol Succinate 25 mg XL Tab PO SCH (08:00)
[2017-09-30 08:01] LABS: T3 2.52 ng/mL (0.97-1.69)
[2017-09-30 09:13] VITALS: BP 155/76
--- NOTE | 2017-09-30 09:20 | RAD ---
HISTORY: medical exam COMPARISON: No prior. TECHNIQUE: Chest PA and lateral FINDINGS: LUNGS: No active pulmonary disease. PLEURA: No significant pleural effusion identified. No pneumothorax apparent. CARDIOVASCULAR: Mild cardiomegaly OSSEOUS STRUCTURES: No significant abnormalities. VISUALIZED UPPER ABDOMEN: Large hiatal hernia measuring 12 cm in diameter OTHER FINDINGS: None. IMPRESSION: Mild cardiomegaly
[2017-09-30] MEDS ORDERED: Potassium Chloride 20 mEq ER Tab PO ONE (09:59)
[2017-09-30] MEDS ORDERED: GlipiZIDE 2.5 mg SR Tab PO SCH (10:00)
[2017-09-30] MEDS ORDERED: Levothyroxine 150 MCG TAB PO SCH (10:00)
[2017-09-30] MEDS ORDERED: SYNTHROID 150 MCG PO SCH (10:00)
--- NOTE | 2017-09-30 14:13 | RAD ---
PROCEDURE: Right Ankle Radiographs. HISTORY: Ankle pain COMPARISON: None FINDINGS: BONES: Normal. No fracture. JOINTS: Normal. No osteoarthritis. Ankle mortise maintained. Talar dome intact SOFT TISSUES: Normal. OTHER FINDINGS: None. IMPRESSION: Normal right ankle radiographs.
--- NOTE | 2017-09-30 16:02 | CARD ---
APPROVED REPORT EKG Measurement Heart [id number] <Conclusion> Sinus rhythm with premature atrial complexes Left anterior fascicular block Moderate voltage criteria for LVH, may be normal variant Poor R Progression V1-V3.
--- NOTE | 2017-09-30 16:15 | CON ---
DATE: 09/30/2017 NEUROLOGY CONSULT CHIEF COMPLAINT: Right foot pain, numbness, and tingling. HISTORY OF PRESENTING ILLNESS: This is an 89-year-old woman with past medical history of hypertension, CVA wtih right arm weakness, TIA, hyperthyroidism, hyperlipidemia, history of syncopal episode secondary to severe hyperthyroidism on 08/14/2017, and UTI with dehydration, who presents to the hospital with difficulty to ambulate because her right leg got stiff as well as cramping of the right foot and plantar aspect of the foot, it was tingling, numb, and painful. She was walking around with a PT which demonstrated that she has some mild plantar fasciitis and some deconditioning of her lower extremities. CAT scan of the head showed no acute intracranial abnormality. No acute events overnight. PAST MEDICAL HISTORY: History of CVA with residual right-sided weakness, hypertension, TIA, hyperthyroidism, hyperlipidemia, history of syncopal episode secondary to severe hyperthyroidism in the past. MEDICATIONS: Reviewed by nurse per reconciliation sheet. SOCIAL HISTORY: No illicit drug use, smoking, or EtOH abuse. ALLERGIES: LEVOTHYROXINE. FAMILY HISTORY: Noncontributory. REVIEW OF SYSTEMS: A 14-point review of systems negative except as per the HPI. PHYSICAL EXAMINATION: VITAL SIGNS: Temperature 97.6, pulse rate of 55, blood pressure 152/90, respiratory rate of 20, oxygen saturation 96% by room air. GENERAL: The patient is sitting up in bed, in no acute distress. HEENT: Atraumatic, normocephalic. PERRLA. Extraocular muscles intact. NECK: Supple. No JVD. No adenopathy noted. LUNGS: Clear to auscultation. No adventitious sounds. HEART: S1, S2. Normal rate and rhythm. No murmurs, rubs, or gallops. ABDOMEN: Soft, nontender, and nondistended. Bowel sounds are present. EXTREMITIES: No clubbing. No cyanosis. Peripheral pulses 2+ felt bilaterally. NEUROLOGIC: The patient is alert, oriented to person, place, month, and year. Recall after 5 minutes is 0/3. Poor attention span. Slow thought process. Cranial nerves II through XII intact. Motor exam: Moves all extremities equally except for right side seems much weaker than the left. Sensory exam: Light touch, pinprick, proprioception, and vibration are intact. DTRs are 2+ throughout. She has some mild essential tremors. Coordination: [id number] intact. Gait is slightly wide based. LABORATORY DATA: Sodium 144, potassium 3, chloride 105, carbon dioxide 21. BUN of 16, creatinine 1.4. Chloride of 105. Random glucose of 118. ASSESSMENT AND PLAN: This is an 89-year-old woman with past medical history of hypertension, dyslipidemia, hyperthyroidism, history of cerebrovascular accident with residual right-sided weakness, history of syncopal episode secondary to urinary tract infection, dehydration, and severe hyperthyroidism in 08/2017, who presents with difficulty in ambulating in terms of right leg pain and stiffness and right plantar aspect of the foot, tingling, numbness and pain, which is all likely secondary to deconditioned state, superimposed underlying arthritis. At this time, recommend: 1. Outpatient physical and occupational therapy for deconditioned state. 2. Follow up with Podiatry in regards to her plantar fasciitis of the right foot. 3. Exercise and stretching exercise. She is clinically stable from my standpoint. Thank you for this consult. Carlos Alberto Dawson MD
--- NOTE | 2017-10-01 05:32 | HP ---
HISTORY OF PRESENT ILLNESS: The patient is an 89-year-old white female, who used to follow me in the office, because of insurance reasons she stopped coming to me. I got a call last night that mom is not doing well, she seems to be confused, disoriented, she has difficulty walking complaining of pain in the right ankle and coronado area. She was recently admitted in 08/13 after she had syncope attack and her right foot cramp. She was unable to walk and she passed out and neighbor found her leaning on the railing. So, she was brought to the emergency room, had MRI of the brain, MRI of the neck and MRI of the head done and was found to be unremarkable. The patient was discharged. Yesterday, daughter noticed that she seems to be a little confused and having pain in her right ankle again. So, she called ambulance and she was brought to the emergency room. PAST MEDICAL HISTORY: Significant for; 1. Hypothyroidism. 2. Hypertension. 3. Obi-eicigit-clvtaqdod diabetes. 4. History of TIA in the past. 5. Hard of hearing. 6. History of CVA with slight right-sided weakness. SOCIAL HISTORY: She lives by herself. Her daughter lives a few blocks from her. She claims she does her own cooking, cleaning and laundry and pretty ambulatory. ALLERGIES: SHE IS ALLERGIC TO LEVOTHYROXINE. MEDICATIONS AT HOME: She is on metoprolol 25 daily, levothyroxine 150 mcg daily, amlodipine 10 mg daily, glipizide 2.5 mg daily, Pepcid 40 mg at bedtime, Plavix 75 daily, atorvastatin 40 mg at dinner, aspirin 81 daily and Mobic 15 mg daily as needed. REVIEW OF SYSTEMS: Significant for right ankle pain and right coronado pain. PHYSICAL EXAMINATION: GENERAL: She is awake and alert, able to communicate, answer simple questions. VITAL SIGNS: She is afebrile, pulse 65, respirations 20, blood pressure 115/90. LUNGS: Bilateral good airflow. No rhonchi or crackles. HEART: S1 and S2 audible. ABDOMEN: Soft. Nontender. No rebound. No guarding. NEUROLOGIC: She is awake, alert, oriented, communicative. Moves all extremities. No focal deficit except slight right upper and lower extremity weakness. EXTREMITIES: Bilateral leg, no edema. LABORATORY DATA: WBC 9.0, hemoglobin 11.9, hematocrit 35.2, platelets of 289. Chemistry: Sodium 144, potassium 3.0, chloride 105, CO2 31, BUN 16, creatinine 1.4, blood sugar of 118. LFTs are within normal limits. Her TSH is 34, T3 is 2.52 and thyroxin is 3.7. Urinalysis is unremarkable. ASSESSMENT AND PLAN: 1. Difficulty walking. 2. Hypothyroidism. 3. History of hypertension. 4. [id number] diabetes. 5. Questionable altered mental status. PLAN: The patient had x-ray of ankle done that is unremarkable. CT scan of head is negative. The patient is clinically stable. She was evaluated by physical therapy, able to ambulate. So, she is being discharged home. We will increase her thyroid medication to 150 mcg daily. We will continue all other medication and advised the patient.s daughter to bring her to office to adjust her medication. Marie Farfan MD
== END 2017-09-30 15:48 | disposition home or self-care (01) ==
LOC: ED 20:03 → ERH 20:33 → 3RNO 22:44
PROVIDERS: ADMIT Internal Medicine; ATTEND Internal Medicine
DX: R26.2 Difficulty in walking, not elsewhere classified (principal); E03.9 Hypothyroidism, unspecified; I10 Essential (primary) hypertension; E11.9 Type 2 diabetes mellitus without complications; H91.90 Unspecified hearing loss, unspecified ear; I69.351 Hemiplegia and hemiparesis following cerebral infarction affecting right dominant side; E78.5 Hyperlipidemia, unspecified; R41.82 Altered mental status, unspecified; M19.90 Unspecified osteoarthritis, unspecified site; R20.2 Paresthesia of skin; R53.1 Weakness; M72.2 Plantar fascial fibromatosis; Z79.02 Long term (current) use of antithrombotics/antiplatelets; Z79.82 Long term (current) use of aspirin; Z79.84 Long term (current) use of oral hypoglycemic drugs; Z79.899 Other long term (current) drug therapy; R40.2412 Glasgow coma scale score 13-15, at arrival to emergency department
CPT/HCPCS: 36415; 70450; 71046; 73560; 73610; 80053; 81001; 84436; 84443; 84480; 84484; 85025; 93005; 97116; 97162; 99285; G0378; G8978; G8979; G8980; J3480

== ENCOUNTER 2017-11-05 14:41 | Emergency (ER) | payer MEDICARE, OTHER ==
[2017-11-05 14:43] VITALS: BMI 22.2
[2017-11-05 15:04] VITALS: TEMP 98.3
--- NOTE | 2017-11-05 15:14 | ED PDOC ---
Arrival/HPI - General Chief Complaint: Back Pain Time Seen by Provider: 11/05/17 14:50 Historian: Patient EM Caveat: Acuity of Condition - History of Present Illness Narrative History of Present Illness (Text): 11/05/17 15:07 Pt is a 89 yr old female with a history of syncope and general weakness BIBA from her home for a fall she had earlier today while using the restroom at [employer]. Pt says she was shopping at the pharmacy for adult pads and needed to use the restroom to clean herself when the lights went off; she states she panicked while sitting on the toilet and attempted to get off when she lost her balance and fell back, hitting her mid and low back and the back of her head on the wall. She reports that she may have been unconscious briefly but came to and started yelling for help. She reports that an employee heard her, helped out of the restroom and out of the store. Pt walked home successfully but after resting there briefly, felt she should go to the ED to get checked. Denies chest pain, loss of sensation, ataxia, nausea, vomiting, diarrhea, or any other complaints. Time/Duration: Prior to Arrival Symptom Onset: Sudden Symptom Course: Unchanged Quality: Pressure, Stabbing Severity Level: 5 Activities at Onset: Light Context: Street Past Medical History - Provider Review Nursing Documentation Reviewed: Yes - Travel History Have you recently traveled outside [place] w/in the past 3 mons?: No - Past History Past History: No Previous - Infectious Disease Hx of Infectious Diseases: None - Cardiac Hx Hypertension: Yes - Pulmonary Hx Respiratory Disorders: No - Neurological HX Cerebrovascular Accident: Yes (w/ no weakness) - HEENT Hx HEENT Disorder: Yes Hx Deafness: Yes ([place]; has R hearing aid) - Renal Hx Renal Disorder: No - Endocrine/Metabolic Hx Hypothyroidism: Yes - Hematological/Oncological Hx Blood Disorders: No - Integumentary Hx Dermatological Disorder: No - Musculoskeletal/Rheumatological Hx Falls: Yes (syncopal episode 08/2017) - Gastrointestinal Hx Gastrointestinal Disorders: No - Genitourinary/Gynecological Hx Genitourinary Disorders: No - Psychiatric Hx Psychophysiologic Disorder: No Hx Substance Use: No - Anesthesia Hx Anesthesia: No Hx Anesthesia Reactions: No Hx Malignant Hyperthermia: No Family/Social History - Physician Review Nursing Documentation Reviewed: Yes Family/Social History: Unknown Family HX Smoking Status: Unknown If Ever Smoked Hx Alcohol Use: No Hx Substance Use: No Hx Substance Use Treatment: No Allergies/Home Meds Allergies/Adverse Reactions: Allergies levothyroxine sodium [From Synthroid] Allergy (Verified 09/29/17 20:11) RASH Home Medications: Home Meds Medication Instructions Recorded Confirmed Clopidogrel [Plavix] 1 tab PO DAILY 09/29/17 11/05/17 Levothyroxine [Synthroid] 150 mcg PO DAILY 09/29/17 11/05/17 Review of Systems - Review of Systems Systems not reviewed;Unavailable: Acuity of Condition Constitutional: Normal Eyes: Normal ENT: Normal Respiratory: SOB Cardiovascular: Normal Gastrointestinal: Normal Genitourinary Female: Normal Musculoskeletal: Normal, Back Pain Skin: Normal Neurological: Normal, Headache (back of head ) Endocrine: Normal Hemo/Lymphatic: Normal Psychiatric: Normal Physical Exam Vital Signs Reviewed: Yes Vital Signs Temp Pulse Resp BP Pulse Ox 11/05/17 18:14 79 18 138/79 98 11/05/17 16:20 86 18 141/86 97 11/05/17 14:43 98.3 F 94 H 19 143/99 H 96 Temperature: Afebrile Blood Pressure: Normal Pulse: Regular Respiratory Rate: Normal Appearance: Positive for: Well-Appearing, Non-Toxic, Comfortable Pain Distress: Mild Mental Status: Positive for: Alert and Oriented X 3 - Systems Exam Head: Present: Normocephalic, Tenderness (occipital). No: Contusion, Ecchymosis , Abrasion, Laceration Pupils: Present: PERRL Extroacular Muscles: Present: EOMI Conjunctiva: Present: Normal Mouth: Present: Moist Mucous Membranes Neck: Present: Normal Range of Motion Respiratory/Chest: Present: Clear to Auscultation, Good Air Exchange, Tender to Palpation (right posterior costals ). No: Respiratory Distress, Accessory Muscle Use, Decreased Breath Sounds Cardiovascular: Present: Regular Rate and Rhythm, Normal S1, S2. No: Murmurs Abdomen: Present: Normal Bowel Sounds. No: Tenderness, Distention, Peritoneal Signs Back: Present: Normal Inspection, Midline Tenderness (greater on the right LS and coccyx). No: CVA Tenderness, Decubitus Ulcer Upper Extremity: Present: Normal Inspection. No: Cyanosis, Edema Lower Extremity: Present: Normal Inspection. No: Edema Neurological: Present: GCS=15, CN II-XII Intact, Speech Normal, Motor Func Grossly Intact, Normal Sensory Function, Gait Normal (slightly anatalgic ) Skin: Present: Warm, Dry, Normal Color. No: Rashes Psychiatric: Present: Alert, Oriented x 3, Normal Insight, Normal Concentration Medical Decision Making ED Course and Treatment: 11/05/17 15:14 Pt is a 89 yr old female with a history of syncope and general weakness BIBA from her home for a fall she had earlier today while using the restroom at [employer]. Pt fell back and hit the back of her head and mid to low back; Pt complaining of pain while inspiring; lungs ctab, no laceration or ecchymosis visible on exam Plan XR of ribs and LS and Head CT assess and dispo Progress note 11/05/17 17:31 DJD and osteopenia appreciated on the lumbar and rib XR; no compression fracvtures or spondylolisthesis noted Head CT unremarkable for hemorrhage or fracture Discussed with pt the findings and advised daily use of incentive spirometry and pain management F/U with PMD in the next few days Pt ambulated well out of the ED - RAD Interpretation Narrative RAD Interpretations (Text): 11/05/17 17:[address] w/o Contrast HEMORRHAGE: No intracranial hemorrhage. BRAIN: No mass effect or edema. There is severe cerebral atrophy identified as was noted on prior study. No new cortical effacement is seen. Small vessel changes are noted in the white matter tracts. No extra-axial acute subdural hematoma is noted on subdural window Ing. Ventricles are stable in size. VENTRICLES: Stable in size. No hydrocephalus. CALVARIUM: Unremarkable. PARANASAL SINUSES: Mild mucosal thickening. MASTOID AIR CELLS: Unremarkable as visualized. No inflammatory changes. OTHER FINDINGS: None. IMPRESSION: No evidence of intracranial hemorrhage or recent infarct. Moderate cerebral atrophy. Radiology Orders: 11/05/17 15:16 HEAD W/O CONTRAST [CT] Stat 11/05/17 15:17 RIBS BILATERAL W/PA CHEST [RAD] Stat 11/05/17 15:18 LS SPINE AP/LAT [RAD] Stat - Medication Orders Current Medication Orders: Discontinued Medications Oxycodone/Acetaminophen (Percocet 5/325 Mg Tab) 1 tab PO STAT STA Stop: 11/05/17 17:18 Last Admin: 11/05/17 17:46 Dose: 1 tab MAR Pain Assessment Document 11/05/17 17:46 RD (Rec: 11/05/17 17:46 RD [id number]) Pain Reassessment Is this a pain reassessment? No Sleep Is patient sleeping during reassessment? No Presence of Pain Presence of Pain Yes Pain Scale Used Pain Scale Used Numeric Disposition/Present on Arrival - Present on Arrival Any Indicators Present on Arrival: Yes History of DVT/PE: No History of Uncontrolled Diabetes: No Urinary Catheter: No History of Decub. Ulcer: No History Surgical Site Infection Following: None - Disposition Have Diagnosis and Disposition been Completed?: Yes Diagnosis: Contusion, Rib contusion, Low back ache Disposition: HOME/ ROUTINE Disposition Time: 17:43 Patient Plan: Discharge Condition: STABLE Discharge Instructions (ExitCare): Low Back Pain in Adults, Bruised Rib (DC) Additional Instructions: [facility], thank you for letting us take care of you today. Your provider was SANTIAGO Stapleton. You were treated for Bruised Ribs and Headache. The emergency medical care you received today was directed at your acute symptoms. If you were prescribed any medication, please fill it and take as directed. It may take several days for your symptoms to resolve. Return to the Emergency Department if your symptoms worsen, do not improve, or if you have any other problems. Please contact your doctor or call one of the physicians/clinics you have been referred to that are listed on the Patient Visit Information form that is included in your discharge packet. Bring any paperwork you were given at discharge with you along with any medications you are taking to your follow up visit. Our treatment cannot replace ongoing medical care by a primary care provider (PCP) outside of the emergency department. Thank you for allowing the [facility] team to be part of your care today. If you had an X-Ray or CT scan: A Radiologist will review the ED reading if any change in treatment is needed we will contact you. Prescriptions: oxyCODONE/Acetaminophen [Percocet 5/325 mg Tab] 1 ea PO Q6 #12 tab Referrals: Sherry Gutierrez, [Primary Care Provider] - Follow up with primary Forms: [employer] ([place])
[2017-11-05 16:31] VITALS: RESP 18
[2017-11-05] MEDS ORDERED: Oxycodone/Acetaminophen 5/325 mg Tab PO STA (17:17)
--- NOTE | 2017-11-05 17:29 | CT ---
PROCEDURE: CT HEAD WITHOUT CONTRAST. HISTORY: injury COMPARISON: 09/29/2017 TECHNIQUE: Axial computed tomography images were obtained through the head/brain without intravenous contrast. Radiation dose: Total exam DLP = 1053 mGy-cm. This CT exam was performed using one or more of the following dose reduction techniques: Automated exposure control, adjustment of the mA and/or kV according to patient size, and/or use of iterative reconstruction technique. FINDINGS: HEMORRHAGE: No intracranial hemorrhage. BRAIN: No mass effect or edema. There is severe cerebral atrophy identified as was noted on prior study. No new cortical effacement is seen. Small vessel changes are noted in the white matter tracts. No extra-axial acute subdural hematoma is noted on subdural window Ing. Ventricles are stable in size. VENTRICLES: Stable in size. No hydrocephalus. CALVARIUM: Unremarkable. PARANASAL SINUSES: Mild mucosal thickening. MASTOID AIR CELLS: Unremarkable as visualized. No inflammatory changes. OTHER FINDINGS: None. IMPRESSION: No evidence of intracranial hemorrhage or recent infarct. Moderate cerebral atrophy.
[2017-11-05 18:14] VITALS: BP 138/79; PULSE 79; O2SAT 98
--- NOTE | 2017-11-06 08:25 | RAD ---
PROCEDURE: Lumbar spine two view HISTORY: Injury COMPARISON: No prior TECHNIQUE: Two views of the lumbar spine were performed. FINDINGS: Osteopenia limits evaluation. There is mild anterior listhesis of L5 over S1, possibly related to a chronic degenerative listhesis. Mild multilevel disc space narrowing is seen. No appreciable acute compression fracture is identified. No appreciable lytic process is noted. Diffuse bowel gas overlying the spine limits evaluation. No sacroiliac joint widening is seen. No obvious sacral fracture is noted. IMPRESSION: Diffuse osteopenia limiting evaluation. Degenerative disc disease. No appreciable acute compression fracture.
--- NOTE | 2017-11-06 10:06 | RAD ---
PROCEDURE: Radiographs of the chest and bilateral ribs HISTORY: injury COMPARISON: 09/29/2017 TECHNIQUE: Frontal radiograph of the chest and multiple oblique radiographs of the bilateral ribs were obtained. FINDINGS: RIGHT RIBS: No displaced rib fractures. Osteopenia limits evaluation. LEFT RIBS: No displaced rib fractures noted. Osteopenia limits evaluation. LUNGS: Chronic interstitial changes are identified. No new focal alveolar infiltrate is seen. PLEURA: No pneumothorax or pleural fluid. CARDIOVASCULAR: Unchanged. OTHER FINDINGS: Retrocardiac hiatal hernia is once again noted. Diffuse air-filled bowel loops involving the large and small bowel suggestive of ileus. IMPRESSION: No appreciable rib fracture. No pneumothorax or effusion. Mild chronic interstitial change. Moderate ileus.
== END 2017-11-05 18:53 | disposition home or self-care (01) ==
LOC: ED 14:41
DX: M54.5 Low back pain (principal); S20.219A Contusion of unspecified front wall of thorax, initial encounter; W19.XXXA Unspecified fall, initial encounter; Y92.512 Supermarket, store or market as the place of occurrence of the external cause; I10 Essential (primary) hypertension; E03.9 Hypothyroidism, unspecified

== ENCOUNTER 2017-11-12 20:15 | Inpatient (IN) | payer MEDICARE, OTHER ==
[2017-11-12 20:16] VITALS: BMI 22.2
--- NOTE | 2017-11-12 20:49 | ED PDOC ---
Arrival/HPI - General Chief Complaint: ENT Problem Time Seen by Provider: 11/12/17 20:21 Historian: Patient - History of Present Illness Narrative History of Present Illness (Text): 11/12/17 20:41 89 year old female, whose past medical history includes hypothyroidism, HTN, NIDDM, and TIA, presentes to the emergency department complaining of dysphagia for past couple of days. Patient states feels like something stuck in her throat when she swallows. Transit time is delayed. States pured her foods. Has been drinking liquids, however experiencing delayed swallowing. Patient also states experiencing occassional shortness of breath when this occurs. Patient denies any chest pain, back pain, vomiting, diarrhea, or any other complaints at this time. No PMD Past Medical History - Provider Review Nursing Documentation Reviewed: Yes - Past History Past History: No Previous - Infectious Disease Hx of Infectious Diseases: None - Reproductive Menopause: Yes - Cardiac Hx Hypertension: Yes - Pulmonary Hx Respiratory Disorders: No - Neurological HX Cerebrovascular Accident: Yes (w/ no weakness) - HEENT Hx HEENT Disorder: Yes Hx Deafness: Yes ([place]; has R hearing aid) - Renal Hx Renal Disorder: No - Endocrine/Metabolic Hx Hypothyroidism: Yes - Hematological/Oncological Hx Blood Disorders: No - Integumentary Hx Dermatological Disorder: No - Musculoskeletal/Rheumatological Hx Falls: Yes (syncopal episode 08/2017) - Gastrointestinal Hx Gastrointestinal Disorders: No - Genitourinary/Gynecological Hx Genitourinary Disorders: No - Psychiatric Hx Psychophysiologic Disorder: No Hx Substance Use: No - Anesthesia Hx Anesthesia: No Hx Anesthesia Reactions: No Hx Malignant Hyperthermia: No Family/Social History - Physician Review Nursing Documentation Reviewed: Yes Family/Social History: No Known Family HX Smoking Status: Unknown If Ever Smoked Hx Alcohol Use: No Hx Substance Use: No Hx Substance Use Treatment: No Allergies/Home Meds Allergies/Adverse Reactions: Allergies levothyroxine sodium [From Synthroid] Allergy (Verified 11/12/17 20:37) RASH Home Medications: Home Meds Medication Instructions Recorded Confirmed Clopidogrel [Plavix] 1 tab PO DAILY 09/29/17 11/12/17 Levothyroxine [Synthroid] 150 mcg PO DAILY 09/29/17 11/12/17 Review of Systems - Physician Review All systems were reviewed & negative as marked: Yes - Review of Systems Respiratory: SOB Cardiovascular: absent: Chest Pain Gastrointestinal: absent: Diarrhea, Vomiting Musculoskeletal: absent: Back Pain Neurological: Speech Changes (dysphasia) Physical Exam Vital Signs Reviewed: Yes Vital Signs Temp Pulse Resp BP Pulse Ox 11/13/17 00:16 88 18 156/74 H 99 11/12/17 22:16 98.2 F 82 18 162/76 H 99 11/12/17 20:34 84 18 174/98 H 98 Temperature: Afebrile Blood Pressure: Hypertensive Pulse: Regular Respiratory Rate: Normal Appearance: Positive for: Well-Appearing Pain Distress: None Mental Status: Positive for: Alert and Oriented X 3 - Systems Exam Pupils: Present: PERRL Extroacular Muscles: Present: EOMI Conjunctiva: Present: Normal Ears: Present: Normal Mouth: Present: Moist Mucous Membranes Pharnyx: Present: Normal Neck: Present: Normal Range of Motion (neck supple, no strider) Respiratory/Chest: Present: Clear to Auscultation, Good Air Exchange. No: Respiratory Distress, Accessory Muscle Use Cardiovascular: Present: Regular Rate and Rhythm, Normal S1, S2. No: Murmurs Abdomen: No: Tenderness, Distention, Peritoneal Signs Upper Extremity: Present: Normal Inspection. No: Cyanosis, Edema Lower Extremity: Present: Normal Inspection. No: Edema Neurological: Present: GCS=15, CN II-XII Intact, Speech Normal Skin: Present: Warm, Dry, Normal Color. No: Rashes Psychiatric: Present: Alert, Oriented x 3, Normal Insight, Normal Concentration Medical Decision Making ED Course and Treatment: 11/12/17 20:44 Impression: 89 year old female with dysphasia and shortness of breath. Plan: -- EKG -- Chest X-Ray -- Labs Progress Notes: 11/12/17 22:02 EKG:Ordered, reviewed, and independently interpreted the EKG. Rate : 84 BPM Rhythm : NSR Interpretation : Left anterior fascicular block. Septal infarct. 11/12/17 23:11 CT of neck soft tissue reviewed by radiologist, shows: Limitations: Lack of intravenous contrast. Suboptimal positioning. Brain: Atrophy and probable chronic ischemic matter changes. Oropharynx: No significant tonsillar enlargement. Hypopharynx: Unremarkable. Larynx: Unremarkable. Normal epiglottis. Trachea: Unremarkable. Retropharyngeal space: Unremarkable. Submandibular/parotid glands: Glands are normal in size. Thyroid: No enlarged or calcified nodules. Bones/joints: No acute fracture. Degenerative changes of spine. Degenerative changes of RIGHT temporomandibular joint. Soft tissues: Unremarkable. Vasculature: Atherosclerotic disease of carotid arteries. Lymph nodes: No pathologically enlarged lymph nodes. Sinuses: Mild focal mucosal thickening of RIGHT maxillary sinus. No air-fluid levels. Mastoid air cells: No mastoid effusion. Orbits: Unremarkable as visualized. Lung apices: See chest CT report for additional details IMPRESSION: 1. No radiopaque foreign bodies. 2. Incidental/non-acute findings are described above. 11/12/17 23:13 CT of head reviewed by radiologist, shows: FINDINGS: Limitations: Lack of intravenous contrast. Motion artifact - mild to moderate. Lungs: Asymmetric inflation of lungs, right greater than left. Minimal atelectasis/scarring. No consolidation. Mild mosaic pattern of left lung parenchyma, nonspecific. Pleural space: No pneumothorax. No significant effusion. Heart: No cardiomegaly. No significant pericardial effusion. Coronary artery calcifications. Mediastinum: Large hiatal hernia. Bones/joints: Degenerative changes of spine. Few healing rib fractures. Mild compression fracture T11 vertebral body, acute or subacute. Soft tissues: No radiopaque foreign bodies. Vasculature: Moderate to extensive atherosclerotic disease. No aneurysm. Lymph nodes: No pathologically enlarged lymph nodes. Adrenals: Mild hypertrophy of adrenal glands. Kidneys and ureters: Mild atrophy of right kidney. Probable 3.8 cm RIGHT renal cyst. Probable 0.6 cm hyperdense RIGHT renal cyst (< 3.0 cm, homogeneous, > 70 HU). IMPRESSION: 1. No radiopaque foreign bodies. 2. Incidental/non-acute findings are described above. 11/12/17 23:[address] Farfan, who is aware and agrees with plan to admit patient to the hospital. As per request, call has been placed for Dr. Alonzo' s service. 11/12/17 23:[address] Alonzo,GI.Agrees pt. to remain NPO.Will evaluate for possible upper endoscopy. - Lab Interpretations Lab Results: 11/12/17 21:15 11/12/17 21:15 Lab Results 11/12/17 21:15: WBC 10.3, RBC 4.93, Hgb 14.5 D, Hct 42.7, MCV 86.6, MCH 29.4, MCHC 34.0, RDW 13.7, Plt Count 306, MPV 8.7 11/12/17 21:15: Sodium 148, Potassium 3.4 L, Chloride 108 H, Carbon Dioxide 25, Anion Gap 19, BUN 20, Creatinine 1.8 H, Est GFR ( Amer) 32, Est GFR (Non- Af Amer) 26, Random Glucose 232 H, Calcium 9.4, Total Bilirubin 0.3, AST 45 H D , ALT 26, Alkaline Phosphatase 77, Lactate Dehydrogenase 686, Total Creatine Kinase 61, Troponin I < 0.01 D, Total Protein 7.6, Albumin 4.1, Globulin 3.5, Albumin/Globulin Ratio 1.2 11/12/17 21:15: PT 11.2, INR 0.98, APTT 25.8 - RAD Interpretation Radiology Orders: 11/12/17 20:54 CHEST W/O CONTRAST [CT] Stat NECK SOFT TISSUE W/O CONTRAST [CT] Stat Manager Rail: Radiologist - EKG Interpretation Interpreted by ED Physician: Yes Type: 12 lead EKG - Medication Orders Current Medication Orders: Sodium Chloride (Sodium Chloride 0.9%) 1,000 mls @ 100 mls/hr IV .Q10H STA Stop: 11/13/17 09:44 Last Admin: 11/13/17 01:50 Dose: 100 mls/hr eMAR Start Stop Document 11/13/17 01:50 BN (Rec: 11/13/17 01:50 [place] [facility] [id number] Intravenous Solution Start Date 11/13/17 Start Time 01:50 Discontinued Medications Hydralazine HCl (Apresoline) 10 mg IVP STAT STA Stop: 11/13/17 03:13 Last Admin: 11/13/17 03:15 Dose: 10 mg IVP Administration Document 11/13/17 03:15 BN (Rec: 11/13/17 03:15 BN [facility] [id number] Charges for Administration # of IVP Administrations 1 SEP Pulse and Blood Pressure Document 11/13/17 03:15 BN (Rec: 11/13/17 03:15 BN [facility] [id number][place] Pulse Pulse Rate (60-90) 77 Blood Pressure Blood Pressure (100/60-150/90) 192/104 Oxycodone/Acetaminophen (Percocet 5/325 Mg Tab) 1 tab PO ONCE ONE Stop: 11/13/17 01:45 Last Admin: 11/13/17 01:49 Dose: 1 tab [facility] Pain Assessment Document 11/13/17 01:49 BN (Rec: 11/13/17 01:49 BN [facility] [id number][place] Pain Reassessment Is this a pain reassessment? No Presence of Pain Presence of Pain Yes Pain Scale Used Pain Scale Used Numeric Location Pain Location Body Site Back Description Description Constant Intensity of Pain at present 8 Pain Behavior Restlessness Alleviating Factors/Management Medication Techniques Re-Assess: [facility] Pain Assessment Document 11/13/17 02:49 BN (Rec: 11/13/17 03:15 BN [facility] [id number][place] Pain Reassessment Is this a pain reassessment? Yes Presence of Pain Presence of Pain No Potassium Chloride (K-Dur 20 Meq Er Tab) 20 meq PO ONCE ONE Stop: 11/13/17 02:41 Last Admin: 11/13/17 02:50 Dose: 20 meq - Scribe Statement The provider has reviewed the documentation as recorded by the Maxine Nunes Provider Scribe Attestation: All medical record entries made by the Maxine were at my direction and personally dictated by me. I have reviewed the chart and agree that the record accurately reflects my personal performance of the history, physical exam, medical decision making, and the department course for this patient. I have also personally directed, reviewed, and agree with the discharge instructions and disposition. Disposition/Present on Arrival - Present on Arrival Any Indicators Present on Arrival: No History of DVT/PE: No History of Uncontrolled Diabetes: No Urinary Catheter: No History of Decub. Ulcer: No History Surgical Site Infection Following: None - Disposition Have Diagnosis and Disposition been Completed?: Yes Diagnosis: Dysphagia Disposition: HOSPITALIZED Disposition Time: 23:46 Patient Plan: Observation Patient Problems: Current Active Problems Problem Status Onset Dysphagia Acute Condition: GOOD
[2017-11-12 21:50] LABS: HEMOGLOBIN 14.5 g/dL (12.0-16.0); MEAN CELL VOLUME 86.6 fl (80.0-105.0); MEAN CORPUSCULAR HEMOGLOBIN 29.4 pg (25.0-35.0); MEAN PLATELET VOLUME 8.7 fl (7.0-11.0); RBC 4.93 10^6/uL (3.5-6.1); RED CELL DISTRIBUTION WIDTH 13.7 % (11.5-14.5); WHITE BLOOD COUNT 10.3 10^3/ul (4.5-11.0)
[2017-11-12 21:55] LABS: INR 0.98 (0.93-1.08); PARTIAL THROMBOPLASTIN TIME 25.8 Seconds (25.1-36.5); PROTHROMBIN TIME 11.2 SECONDS (9.4-12.5)
[2017-11-12 22:06] LABS: ALB/GLOB RATIO 1.2 (1.1-1.8); ALBUMIN 4.1 g/dL (3.0-4.8); ALT/SGPT 26 U/L (7-56); AST/SGOT 45 U/L (14-36); BLOOD UREA NITROGEN 20 mg/dL (7-21); CALCIUM 9.4 mg/dL (8.4-10.5); GFR AFRICAN-AMERICAN 32; GFR NON-AFRICAN AMERICAN 26
[2017-11-12 22:29] LABS: TROPONIN I < 0.01 ng/mL
--- NOTE | 2017-11-12 22:48 | CT ---
EXAM: CT Neck Without Intravenous Contrast CLINICAL HISTORY: 89 years old, female; Signs and symptoms; Other: R/O foreign body TECHNIQUE: Axial computed tomography images of the neck without intravenous contrast. All CT scans at this facility use one or more dose reduction techniques, viz.: automated exposure control; ma/kV adjustment per patient size (including targeted exams where dose is matched to indication; i.e. head); or iterative reconstruction technique. Coronal and sagittal reformatted images were created and reviewed. COMPARISON: No relevant prior studies available. FINDINGS: Limitations: Lack of intravenous contrast. Suboptimal positioning. Brain: Atrophy and probable chronic ischemic matter changes. Oropharynx: No significant tonsillar enlargement. Hypopharynx: Unremarkable. Larynx: Unremarkable. Normal epiglottis. Trachea: Unremarkable. Retropharyngeal space: Unremarkable. Submandibular/parotid glands: Glands are normal in size. Thyroid: No enlarged or calcified nodules. Bones/joints: No acute fracture. Degenerative changes of spine. Degenerative changes of RIGHT temporomandibular joint. Soft tissues: Unremarkable. Vasculature: Atherosclerotic disease of carotid arteries. Lymph nodes: No pathologically enlarged lymph nodes. Sinuses: Mild focal mucosal thickening of RIGHT maxillary sinus. No air-fluid levels. Mastoid air cells: No mastoid effusion. Orbits: Unremarkable as visualized. Lung apices: See chest CT report for additional details. IMPRESSION: 1. No radiopaque foreign bodies. 2. Incidental/non-acute findings are described above.
--- NOTE | 2017-11-12 22:56 | CT ---
EXAM: CT Chest Without Intravenous Contrast CLINICAL HISTORY: 89 years old, female; Signs and symptoms; Shortness of breath and other: R/O foreign body/sob TECHNIQUE: Axial computed tomography images of the chest without intravenous contrast. All CT scans at this facility use one or more dose reduction techniques, viz.: automated exposure control; ma/kV adjustment per patient size (including targeted exams where dose is matched to indication; i.e. head); or iterative reconstruction technique. Coronal and sagittal reformatted images were created and reviewed. COMPARISON: No relevant prior studies available. FINDINGS: Limitations: Lack of intravenous contrast. Motion artifact - mild to moderate. Lungs: Asymmetric inflation of lungs, right greater than left. Minimal atelectasis/scarring. No consolidation. Mild mosaic pattern of left lung parenchyma, nonspecific. Pleural space: No pneumothorax. No significant effusion. Heart: No cardiomegaly. No significant pericardial effusion. Coronary artery calcifications. Mediastinum: Large hiatal hernia. Bones/joints: Degenerative changes of spine. Few healing rib fractures. Mild compression fracture T11 vertebral body, acute or subacute. Soft tissues: No radiopaque foreign bodies. Vasculature: Moderate to extensive atherosclerotic disease. No aneurysm. Lymph nodes: No pathologically enlarged lymph nodes. Adrenals: Mild hypertrophy of adrenal glands. Kidneys and ureters: Mild atrophy of right kidney. Probable 3.8 cm RIGHT renal cyst. Probable 0.6 cm hyperdense RIGHT renal cyst (< 3.0 cm, homogeneous, > 70 HU). IMPRESSION: 1. No radiopaque foreign bodies. 2. Incidental/non-acute findings are described above.
[2017-11-12] MEDS ORDERED: Sodium Chloride 0.9% 1,000 ML IV STA (23:45)
[2017-11-13] MEDS ORDERED: Oxycodone/Acetaminophen 5/325 mg Tab PO ONE (01:44)
[2017-11-13] MEDS ORDERED: Potassium Chloride 20 mEq ER Tab PO ONE (02:40)
--- NOTE | 2017-11-13 02:56 | CP.PCM.PN ---
Subjective - Date & Time of Evaluation Date of Evaluation: 11/13/17 Time of Evaluation: 02:53 - Subjective Subjective: Patient was seen at bedside. She complained of low back pain, on right side of midline, for past hour. No other complaints now. Medical record was reviewed. K is low. This 89 year old white woman is admitted for dysphagia, sob. Has PMH of HTN,Hyopothyroidism, NIDDM,deafness,TIA, CVA with right sided hemiparesis . Objective - Vital Signs/Intake and Output Vital Signs (last 24 hours): Temp Pulse Resp BP Pulse Ox 98.6 F 76 18 178/93 H 99 11/13/17 01:45 11/13/17 01:45 11/13/17 01:45 11/13/17 01:45 11/13/17 00:16 - Medications Medications: Current Medications Sodium Chloride (Sodium Chloride 0.9%) 1,000 mls @ 100 mls/hr IV .Q10H STA Stop: 11/13/17 09:44 Last Admin: 11/13/17 01:50 Dose: 100 mls/hr - Labs Labs: PT 11.2 SECONDS (9.4-12.5) 11/12/17 21:15 INR 0.98 (0.93-1.08) 11/12/17 21:15 APTT 25.8 Seconds (25.1-36.5) 11/12/17 21:15 Assessment and Plan - Assessment and Plan (Free Text) Assessment: Low back pain-right sided. Hypokalemia. Dysphagia. Deafness. Dyspnea. HTN. NIDDM. Hypothyroidism. Plan: Percocet 5/325 I PO x 1. K- Dur 20 meq PO x 1. Continue management as per PMD.
--- NOTE | 2017-11-13 08:55 | HP ---
DATE OF EXAM: 11/13/2017 HISTORY OF PRESENT ILLNESS: Ms. Mckay is an 89-year-old female admitted to the hospital with complaints of dysphagia for past few days. She feels like something stuck in the throat. She has a history of hypothyroidism, hyperlipidemia, diabetes mellitus type 2, also has a history of TIA. CT neck done in the ED did not show any foreign body impaction. CAT scan of the chest was unremarkable also. Incidental finding of T11 compression fracture. Hypertension, blood pressure controlled with current medications. History of TIA, none recent. Diabetes mellitus, fairly controlled with current medications. PAST MEDICAL HISTORY: Diabetes mellitus, TIA, hypertension, uses hearing aids, hypothyroidism, history of fall, syncopal episodes. PAST SURGICAL HISTORY: None. FAMILY HISTORY: Noncontributory. PERSONAL HISTORY: Nonsmoker. No history of alcohol abuse. ALLERGIES: ALLERGIES TO BE CONFIRMED. HOME MEDICATION: Plavix, Synthroid, aspirin. REVIEW OF SYSTEMS: As per HPI. Rest of 12-point review of systems reviewed and negative. PHYSICAL EXAMINATION GENERAL: Comfortable in bed in no acute distress. VITAL SIGNS: Temperature 98.7, heart rate 80 per minute, blood pressure 150/74, pulse ox is 99% on room air, respiratory rate 18 per minute. HEENT: Pallor positive. NECK: No lymphadenopathy. CHEST: Air entry present and equal bilaterally. No added sounds. CARDIOVASCULAR: S1 and S2 normal. No murmur. No gallop. ABDOMEN: Soft, nontender. No hepatosplenomegaly. EXTREMITIES: No edema. Spine nontender. SKIN: No petechiae. No rash. IMAGING: CAT scan as per HPI. LABORATORY DATA: White count 10.3, hemoglobin 14.5, hematocrit 42.7, platelet 306. Sodium 148, potassium 3.4, BUN 20, creatinine 1.8. Glucose 232. Troponin is negative. ASSESSMENT: 1. Dysphagia. 2. Hypertension. 3. History of transient ischemic attack. 4. Diabetes mellitus type 2. PLAN: She will be admitted to the hospital. CAT scan of the neck and CAT scan of the chest are unremarkable. We will continue home meds with apple sauce. Norvasc 10 mg daily, aspirin 81 mg daily, Lipitor 40 mg daily, Plavix 75 mg daily, Pepcid 40 mg daily, Glucotrol 2.5 mg daily, Synthroid 150 mcg daily, Mobic 15 mg daily, IV fluid 800 mL an hour, Toprol XL 25 mg daily. We will do the swallow evaluation, n.p.o. Serena Huffman MD JE[facility]
[2017-11-13] MEDS: Metoprolol Succinate 25 mg XL Tab PO SCH (09:54)
[2017-11-13] MEDS ORDERED: Levothyroxine 150 MCG TAB PO SCH (10:00)
[2017-11-13] MEDS ORDERED: GlipiZIDE 2.5 mg SR Tab PO SCH (10:00)
[2017-11-13] MEDS ORDERED: Sodium Chloride 0.9% 1,000 ML IV SCH (10:45)
--- NOTE | 2017-11-13 15:19 | CARD ---
APPROVED REPORT EKG Measurement Heart [id number] <Conclusion> Normal sinus rhythm with sinus arrhythmia Left anterior fascicular block Septal infarct, age undetermined Abnormal ECG
[2017-11-14] MEDS: Metoprolol Succinate 25 mg XL Tab PO SCH (07:50)
[2017-11-14] MEDS: Oxycodone/Acetaminophen 5/325 mg Tab PO PRN (12:07)
--- NOTE | 2017-11-14 12:49 | CP.PCM.PN ---
<Chhaya Hoffmann - Last Filed: 11/14/17 16:25> Subjective - Date & Time of Evaluation Date of Evaluation: 11/14/17 Time of Evaluation: 11:00 - Subjective Subjective: PGY-2 GI progress note Patient was seen and examined at bedside. No acute distress. Patient states that she was seen by speech therapist who recommenced significant head-neck- shoulder tension, which appears to interrupt the swallowing sequence. Patient states that she would like to try more solid food and believes the pureed diet is difficult to swallow. She denies any abd pain, nausea, vomiting. Objective - Vital Signs/Intake and Output Vital Signs (last 24 hours): Temp Pulse Resp BP Pulse Ox 97.3 F L 62 20 163/79 H 96 11/14/17 07:00 11/14/17 07:00 11/14/17 07:00 11/14/17 07:50 11/14/17 07:00 Intake and Output: 11/14/17 11/14/17 06:59 18:59 Intake Total 540 Balance 540 - Medications Medications: Current Medications Amlodipine Besylate (Norvasc) 10 mg PO DAILY [facility] Last Admin: 11/14/17 10:05 Dose: Not Given Aspirin (Aspirin Chewable) 81 mg PO DAILY [facility] Last Admin: 11/14/17 10:05 Dose: 81 mg Atorvastatin Calcium (Lipitor) 40 mg PO DIN [facility] Last Admin: 11/13/17 19:21 Dose: 40 mg Clopidogrel Bisulfate (Plavix) 75 mg PO DAILY [facility] Last Admin: 11/14/17 10:05 Dose: 75 mg Famotidine (Pepcid) 40 mg PO HS [facility] Last Admin: 11/13/17 21:15 Dose: 40 mg Meloxicam (Mobic) 15 mg PO DAILY [facility] Last Admin: 11/14/17 10:05 Dose: 15 mg Metoprolol Succinate (Toprol Xl) 25 mg PO BRK [facility] Last Admin: 11/14/17 07:50 Dose: 25 mg Oxycodone/Acetaminophen (Percocet 5/325 Mg Tab) 1 tab PO Q6H PRN PRN Reason: Pain, severe (8-10) Stop: 11/16/17 10:45 Last Admin: 11/14/17 12:07 Dose: 1 tab Pantoprazole Sodium (Protonix Ec Tab) 40 mg PO ACB [facility] - Labs Labs: PT 11.2 SECONDS (9.4-12.5) 11/12/17 21:15 INR 0.98 (0.93-1.08) 11/12/17 21:15 APTT 25.8 Seconds (25.1-36.5) 11/12/17 21:15 - Constitutional Appears: Well, No Acute Distress - Head Exam Head Exam: ATRAUMATIC, NORMAL INSPECTION, NORMOCEPHALIC - Eye Exam Eye Exam: EOMI, Normal appearance - ENT Exam ENT Exam: Mucous Membranes Moist - Respiratory Exam Respiratory Exam: Clear to Ausculation Bilateral, NORMAL BREATHING PATTERN. absent: Decreased Breath Sounds, Rales, Rhonchi, Wheezes, Respiratory Distress - Cardiovascular Exam Cardiovascular Exam: REGULAR RHYTHM, +S1, +S2. absent: Bradycardia, Tachycardia , Murmur - GI/Abdominal Exam GI & Abdominal Exam: Soft, Normal Bowel Sounds. absent: Distended, Firm, Guarding - Extremities Exam Extremities Exam: Normal Inspection - Neurological Exam Neurological Exam: Alert, Awake, Oriented x3 - Skin Skin Exam: Dry, Intact, Normal Color, Warm Assessment and Plan - Assessment and Plan (Free Text) Assessment: 89 yo female with PMH of diabetes, TIA, HTN, hearing aids presented with dysphagia. dysphagia HTN history of TIA diabetes Plan: CT of the neck and chest did not show any foreign bodies Speech and swallow evaluation recommended trial diet of mechanically altered finely chopped level 2, with thin liquids; aspiration/reflux precautions if tolerating liquid intake consider esophagram recommend elective EGD however patient refuses endoscope continue pepcid for GI prophalxis case reviewed and discussed with attending <Aamir Alonzo V - Last Filed: 11/15/17 00:35> Objective - Vital Signs/Intake and Output Vital Signs (last 24 hours): Temp Pulse Resp BP Pulse Ox 97.9 F 64 18 137/75 94 L 11/14/17 14:00 11/14/17 14:00 11/14/17 14:00 11/14/17 15:50 11/14/17 14:00 Intake and Output: 11/14/17 11/15/17 18:59 06:59 Intake Total 360 540 Balance 360 540 - Medications Medications: Current Medications Amlodipine Besylate (Norvasc) 10 mg PO DAILY [facility] Last Admin: 11/14/17 10:05 Dose: Not Given Aspirin (Aspirin Chewable) 81 mg PO DAILY [facility] Last Admin: 11/14/17 10:05 Dose: 81 mg Atorvastatin Calcium (Lipitor) 40 mg PO DIN [facility] Last Admin: 11/14/17 17:02 Dose: 40 mg Clopidogrel Bisulfate (Plavix) 75 mg PO DAILY [facility] Last Admin: 11/14/17 10:05 Dose: 75 mg Famotidine (Pepcid) 40 mg PO HS [facility] Last Admin: 11/14/17 21:26 Dose: 40 mg Meloxicam (Mobic) 15 mg PO DAILY [facility] Last Admin: 11/14/17 10:05 Dose: 15 mg Metoprolol Succinate (Toprol Xl) 25 mg PO BRK [facility] Last Admin: 11/14/17 07:50 Dose: 25 mg Oxycodone/Acetaminophen (Percocet 5/325 Mg Tab) 1 tab PO Q6H PRN PRN Reason: Pain, severe (8-10) Stop: 11/16/17 10:45 Last Admin: 11/14/17 12:07 Dose: 1 tab Pantoprazole Sodium (Protonix Ec Tab) 40 mg PO ACB [facility] - Labs Labs: PT 11.2 SECONDS (9.4-12.5) 11/12/17 21:15 INR 0.98 (0.93-1.08) 11/12/17 21:15 APTT 25.8 Seconds (25.1-36.5) 11/12/17 21:15 Attending/Attestation - Attestation I have personally seen and examined this patient.: Yes I have fully participated in the care of the patient.: Yes I have reviewed all pertinent clinical information, including history, physical exam and plan: Yes Notes (Text): This is an addendum to GI progress report dictated by the [employer].The patient was seen and examined earlier. Medical records, lab studies, imagings were reviewed. Last 24 hours events reviewed. Agreed with the above treatment plan as outlined in [employer] 's notes the with the addition of the following patient is tolerating pure Refused endoscopic evaluation Agreeable for barium study Requested esophagogram in am 11/15/17 00:29
--- NOTE | 2017-11-14 14:05 | RAD ---
PROCEDURE: Radiographs of the Lumbar Spine. HISTORY: lower back pain COMPARISON: No prior. FINDINGS: BONES: There is 18 mm of spondylolisthesis of L5 over S1. Mild compression deformity of T11, age uncertain DISC SPACES: Unremarkable. OTHER FINDINGS: None. IMPRESSION: Spondylolisthesis at L5-S1 Mild compression deformity of T11, age uncertain
--- NOTE | 2017-11-14 14:42 | PN ---
DATE: 11/14/2017 SUBJECTIVE: The patient is 89 years old, who states while she was doing shopping in the stall, the electricity went out and she fell on the floor, did not get help for half an hour. Since then, her back is hurting. She was also noticed to be choking on food, so she was admitted for further evaluation. She had swallowing evaluation done and it was recommended to give her finely chopped food. The patient complained of pain and she states her back hurts even moving within the bed. Denies any weakness or numbness in the legs. PHYSICAL EXAMINATION: VITAL SIGNS: She is afebrile, pulse 62, respirations 20, blood pressure 163/79. LUNGS: Bilateral good airflow. No rhonchi or crackle. HEART: S1 and S2 audible. ABDOMEN: Soft, nontender. No rebound. No guarding. NEUROLOGIC: The patient is awake, alert, oriented, communicative. Complain of paraspinal spinal discomfort. Neurologically, she is nonfocal. She had CT scan of the neck done that is unremarkable. She also had CT scan of the chest done that is also negative. ASSESSMENT AND PLAN: 1. Status post fall. 2. Hard of hearing. 3. Difficulty walking because of intractable pain. 4. Hypertension. 5. Hypothyroidism. PLAN: I will order for x-ray of lumbosacral spine. The patient is high risk for fall. She needs physical therapy. Request for TCU evaluation and she will be started on finally chopped diet. I will continue her on Protonix. She is on Plavix, Percocet and she will benefit from TCU. I will request for TCU evaluation. If accepted, can be transferred to TCU. Marie Farfan MD
[2017-11-15] MEDS: Metoprolol Succinate 25 mg XL Tab PO SCH (09:26)
[2017-11-15] MEDS: Pantoprazole 40 mg EC Tab PO SCH (09:27)
--- NOTE | 2017-11-15 09:52 | CP.PCM.PN ---
Subjective - Date & Time of Evaluation Date of Evaluation: 11/15/17 Time of Evaluation: 09:00 - Subjective Subjective: PGY-2 GI progress note Patient was seen and examined at bedside. No acute distress. Patient is eating regular diet. She states that she is not having trouble eating. Patient states that she was seen by speech therapist who recommended different techniques. She denies any abd pain, nausea, vomiting. Patient states that she does not want to have endoscopy done but is ok with esophagram Objective - Vital Signs/Intake and Output Vital Signs (last 24 hours): Temp Pulse Resp BP Pulse Ox 97.2 F L 71 20 155/81 H 95 11/15/17 08:20 11/15/17 09:26 11/15/17 08:20 11/15/17 09:27 11/15/17 08:20 Intake and Output: 11/15/17 11/15/17 06:59 18:59 Intake Total 540 Balance 540 - Medications Medications: Current Medications Amlodipine Besylate (Norvasc) 10 mg PO DAILY [facility] Last Admin: 11/15/17 09:27 Dose: 10 mg Aspirin (Aspirin Chewable) 81 mg PO DAILY [facility] Last Admin: 11/15/17 09:27 Dose: 81 mg Atorvastatin Calcium (Lipitor) 40 mg PO DIN [facility] Last Admin: 11/14/17 17:02 Dose: 40 mg Clopidogrel Bisulfate (Plavix) 75 mg PO DAILY [facility] Last Admin: 11/15/17 09:26 Dose: 75 mg Famotidine (Pepcid) 40 mg PO HS [facility] Last Admin: 11/14/17 21:26 Dose: 40 mg Meloxicam (Mobic) 15 mg PO DAILY [facility] Last Admin: 11/15/17 09:26 Dose: 15 mg Metoprolol Succinate (Toprol Xl) 25 mg PO BRK [facility] Last Admin: 11/15/17 09:26 Dose: 25 mg Oxycodone/Acetaminophen (Percocet 5/325 Mg Tab) 1 tab PO Q6H PRN PRN Reason: Pain, severe (8-10) Stop: 11/16/17 10:45 Last Admin: 11/14/17 12:07 Dose: 1 tab Pantoprazole Sodium (Protonix Ec Tab) 40 mg PO ACB [facility] Last Admin: 11/15/17 09:27 Dose: 40 mg - Labs Labs: PT 11.2 SECONDS (9.4-12.5) 11/12/17 21:15 INR 0.98 (0.93-1.08) 11/12/17 21:15 APTT 25.8 Seconds (25.1-36.5) 11/12/17 21:15 - Constitutional Appears: Well, No Acute Distress - Head Exam Head Exam: NORMOCEPHALIC - Eye Exam Eye Exam: EOMI, Normal appearance - ENT Exam ENT Exam: Mucous Membranes Moist - Respiratory Exam Respiratory Exam: Clear to Ausculation Bilateral, NORMAL BREATHING PATTERN. absent: Rales, Rhonchi, Wheezes, Respiratory Distress, Stridor - Cardiovascular Exam Cardiovascular Exam: REGULAR RHYTHM, +S1, +S2. absent: Bradycardia, Tachycardia , Murmur - GI/Abdominal Exam GI & Abdominal Exam: Soft, Normal Bowel Sounds. absent: Distended, Firm, Tenderness - Extremities Exam Extremities Exam: Normal Inspection. absent: Pedal Edema, Tenderness - Neurological Exam Neurological Exam: Alert, Awake, Oriented x3 - Skin Skin Exam: Dry, Intact, Normal Color, Warm Assessment and Plan - Assessment and Plan (Free Text) Assessment: 89 yo female with PMH of diabetes, TIA, HTN, hearing aids presented with dysphagia. dysphagia HTN history of TIA diabetes Plan: CT of the neck and chest did not show any foreign bodies Speech and swallow evaluation recommended trial diet of mechanically altered finely chopped level 2, with thin liquids; aspiration/reflux precautions tolerating mechanical diet will order esophagram study recommend elective EGD however patient refuses endoscope continue pepcid for GI prophylaxis case reviewed and discussed with attending
[2017-11-15] MEDS ORDERED: Barium Sulfate for Susp 96% w/w 176g Bottle PR ONE (13:09)
--- NOTE | 2017-11-15 13:40 | CT ---
PROCEDURE: CT HEAD WITHOUT CONTRAST. HISTORY: dysphagia COMPARISON: 11/05/2017 TECHNIQUE: Axial computed tomography images were obtained through the head/brain without intravenous contrast. Radiation dose: Total exam DLP = 1007 mGy-cm. This CT exam was performed using one or more of the following dose reduction techniques: Automated exposure control, adjustment of the mA and/or kV according to patient size, and/or use of iterative reconstruction technique. FINDINGS: HEMORRHAGE: No intracranial hemorrhage. BRAIN: No mass effect or edema. Moderate to severe atrophy. Chronic microvascular changes. VENTRICLES: Unremarkable. No hydrocephalus. CALVARIUM: Unremarkable. PARANASAL SINUSES: Unremarkable as visualized. No significant inflammatory changes. MASTOID AIR CELLS: Unremarkable as visualized. No inflammatory changes. OTHER FINDINGS: None. IMPRESSION: Severe atrophy. Chronic microvascular changes. No acute intracranial findings
[2017-11-15] MEDS: Oxycodone/Acetaminophen 5/325 mg Tab PO PRN (14:03)
--- NOTE | 2017-11-15 14:28 | RAD ---
HISTORY: Dysphagia. COMPARISON: None. TECHNIQUE: Single contrast esophagram was performed. FINDINGS: Patient tolerated procedure well. ESOPHAGUS: Esophageal mucosa appeared preserved. No evidence of stricture or mass lesion. There is some tortuosity of the distal esophagus related to the large hiatal hernia. Tertiary contractions are seen in the distal esophagus HIATAL HERNIA: There is a large hiatal hernia with the majority of the stomach seen above the diaphragm. The stomach drains when the patient is placed in a semi upright position. There is no obstruction. GASTROESOPHAGEAL REFLUX: Not demonstrated. OTHER FINDINGS: None. IMPRESSION: Large hiatal hernia
--- NOTE | 2017-11-15 16:48 | PN ---
DATE: 11/15/2017 SUBJECTIVE: The patient is 89-year-old, seen and examined, looks a little anxious and had difficulty swallowing when she feels anxious, complaining of back pain. PHYSICAL EXAMINATION: VITAL SIGNS: She is afebrile, pulse 71, respiration 20, blood pressure 155/81. LUNGS: Bilateral good airflow. No rhonchi or crackle. HEART: S1 and S2 audible. ABDOMEN: Soft, nontender. No rebound, no guarding. NEUROLOGIC: The patient is awake, alert, oriented, communicative, hard of hearing. DATA: Lumbar x-ray shows spondylolisthesis, L5-S1, and CT scan of the chest, no radiopaque foreign body seen and no acute finding, otherwise. ASSESSMENT: 1. Status post fall. 2. Intractable lower back pain. 3. Intermittent dysphagia. PLAN: I will order for CT of the head to rule out CVA. The patient is going for esophagogram. TCU evaluation has been requested. We will follow up this patient in the morning. Marie Farfan MD
[2017-11-16] MEDS: Metoprolol Succinate 25 mg XL Tab PO SCH (08:10)
[2017-11-16] MEDS: Pantoprazole 40 mg EC Tab PO SCH (08:10)
--- NOTE | 2017-11-16 11:08 | CP.PCM.PN ---
<Chhaya Hoffmann - Last Filed: 11/16/17 15:14> Subjective - Date & Time of Evaluation Date of Evaluation: 11/16/17 Time of Evaluation: 09:00 - Subjective Subjective: PGY-2 GI progress note Patient was seen and examined at bedside. No acute distress. Patient is eating regular mechanical diet. She states that her dysphagia has improved. Patient states that she was seen by speech therapist who recommended different techniques. She denies any abd pain, nausea, vomiting. Patient states that she does not want to have endoscopy done. Objective - Vital Signs/Intake and Output Vital Signs (last 24 hours): Temp Pulse Resp BP Pulse Ox 98.3 F 60 18 148/62 95 11/16/17 08:24 11/16/17 08:24 11/16/17 08:24 11/16/17 09:07 11/16/17 08:24 - Medications Medications: Current Medications Amlodipine Besylate (Norvasc) 10 mg PO DAILY [facility] Last Admin: 11/16/17 09:07 Dose: 10 mg Aspirin (Aspirin Chewable) 81 mg PO DAILY [facility] Last Admin: 11/16/17 09:07 Dose: 81 mg Atorvastatin Calcium (Lipitor) 40 mg PO DIN [facility] Last Admin: 11/15/17 17:10 Dose: 40 mg Clonazepam (Klonopin) 0.25 mg PO BID PRN; Protocol PRN Reason: Anxiety Clopidogrel Bisulfate (Plavix) 75 mg PO DAILY [facility] Last Admin: 11/16/17 09:07 Dose: 75 mg Famotidine (Pepcid) 40 mg PO HS [facility] Last Admin: 11/15/17 21:14 Dose: 40 mg Meloxicam (Mobic) 15 mg PO DAILY [facility] Last Admin: 11/16/17 09:07 Dose: 15 mg Metoprolol Succinate (Toprol Xl) 25 mg PO BRK [facility] Last Admin: 11/16/17 08:10 Dose: 25 mg Pantoprazole Sodium (Protonix Ec Tab) 40 mg PO ACB [facility] Last Admin: 11/16/17 08:10 Dose: 40 mg - Labs Labs: PT 11.2 SECONDS (9.4-12.5) 11/12/17 21:15 INR 0.98 (0.93-1.08) 11/12/17 21:15 APTT 25.8 Seconds (25.1-36.5) 11/12/17 21:15 - Constitutional Appears: Well, No Acute Distress - Head Exam Head Exam: ATRAUMATIC, NORMOCEPHALIC - Eye Exam Eye Exam: EOMI, Normal appearance - ENT Exam ENT Exam: Mucous Membranes Moist - Respiratory Exam Respiratory Exam: Clear to Ausculation Bilateral, NORMAL BREATHING PATTERN. absent: Rhonchi, Wheezes, Respiratory Distress - Cardiovascular Exam Cardiovascular Exam: REGULAR RHYTHM, +S1, +S2. absent: Bradycardia, Tachycardia , Diastolic murmur, Murmur - GI/Abdominal Exam GI & Abdominal Exam: Soft, Normal Bowel Sounds. absent: Distended, Firm, Tenderness - Extremities Exam Extremities Exam: Normal Inspection. absent: Pedal Edema, Tenderness - Neurological Exam Neurological Exam: Alert, Awake, Oriented x3 - Skin Skin Exam: Dry, Intact, Normal Color, Warm Assessment and Plan - Assessment and Plan (Free Text) Assessment: 89 yo female with PMH of diabetes, TIA, HTN, hearing aids presented with dysphagia. dysphagia HTN history of TIA diabetes Plan: CT of the neck and chest did not show any foreign bodies Speech and swallow evaluation recommended trial diet of mechanically altered finely chopped level 2, with thin liquids; aspiration/reflux precautions tolerating mechanical diet esophagram showed large hiatal hernia recommend elective EGD however patient refuses endoscope continue pepcid for GI prophylaxis consider ENT consult case reviewed and discussed with attending <Aamir Alonzo V - Last Filed: 11/16/17 23:48> Objective - Vital Signs/Intake and Output Vital Signs (last 24 hours): Temp Pulse Resp BP Pulse Ox 98 F 73 18 177/88 H 96 11/16/17 22:00 11/16/17 22:00 11/16/17 22:00 11/16/17 22:00 11/16/17 22:00 Intake and Output: 11/16/17 11/17/17 18:59 06:59 Intake Total 480 660 Balance 480 660 - Medications Medications: Current Medications Amlodipine Besylate (Norvasc) 10 mg PO DAILY [facility] Last Admin: 11/16/17 09:07 Dose: 10 mg Aspirin (Aspirin Chewable) 81 mg PO DAILY [facility] Last Admin: 11/16/17 09:07 Dose: 81 mg Atorvastatin Calcium (Lipitor) 40 mg PO DIN [facility] Last Admin: 11/16/17 17:37 Dose: 40 mg Clonazepam (Klonopin) 0.25 mg PO BID PRN; Protocol PRN Reason: Anxiety Clopidogrel Bisulfate (Plavix) 75 mg PO DAILY [facility] Last Admin: 11/16/17 09:07 Dose: 75 mg Famotidine (Pepcid) 40 mg PO HS [facility] Last Admin: 11/16/17 22:21 Dose: 40 mg Meloxicam (Mobic) 15 mg PO DAILY [facility] Last Admin: 11/16/17 09:07 Dose: 15 mg Metoprolol Succinate (Toprol Xl) 25 mg PO BRK [facility] Last Admin: 11/16/17 08:10 Dose: 25 mg Pantoprazole Sodium (Protonix Ec Tab) 40 mg PO ACB [facility] Last Admin: 11/16/17 08:10 Dose: 40 mg - Labs Labs: PT 11.2 SECONDS (9.4-12.5) 11/12/17 21:15 INR 0.98 (0.93-1.08) 11/12/17 21:15 APTT 25.8 Seconds (25.1-36.5) 11/12/17 21:15 Attending/Attestation - Attestation I have personally seen and examined this patient.: Yes I have fully participated in the care of the patient.: Yes I have reviewed all pertinent clinical information, including history, physical exam and plan: Yes Notes (Text): This is an addendum to GI progress report dictated by the House Parent.The patient was seen and examined earlier. Medical records, lab studies, imagings were reviewed. Last 24 hours events reviewed. Agreed with the above treatment plan as outlined in House Parent 's notes the with the addition of the following 11/16/17 23:48
--- NOTE | 2017-11-16 13:52 | CP.PCM.CON ---
<Uyen Tamez - Last Filed: 11/16/17 13:37> History of Present Illness - History of Present Illness History of Present Illness: Surgery Consult Note for Dr. Jama HPI: 89 yo F with PMH of HTN, NIDDM, multiple TIAs in the past who initially presented to the ER complaining of dysphagia. Evaluation included chest CT and esophagram which showed large hiatal hernia, with most of the stomach above the diaphragm, and surgical consult was requested for the large hiatal hernia. Patient reports that she fell 3 weeks ago, and noticed that the dysphagia has been ongoing since then. She denies any weightloss, fever, chills, night sweats. She has dysphagia to both solids and liquids. She has also been seen by SOFTWARE ENGINEERING ANALYST who suggested that her dysphagia is secondary to [id number] tension which interrupts the swallowing sequence. Since admission, she has been tolerating a diet, which has been progressively advanced with ongoing swallow therapy with SOFTWARE ENGINEERING ANALYST. Currently, she denies any heartburn, chest pain, abdominal pain, nausea, vomiting, diarrhea, constipation, shortness of breath, fever, or chills. Patient was offered EGD, but refused, and wants to defer any procedures "for 2 weeks to discuss with [her] daughter." She also refuses any surgical intervention. PMH: HTN, NIDDM, TIAs PSH: Denies Soc: Denies tobacco, alcohol, or illicits ALL: Levothyroxine PMD: Perveen Past Patient History - Infectious Disease Hx of Infectious Diseases: None - Past Social History Smoking Status: Unknown If Ever Smoked - CARDIAC Hx Hypertension: Yes - PULMONARY Hx Respiratory Disorders: No - NEUROLOGICAL HX Cerebrovascular Accident: Yes (w/ no weakness) - HEENT Hx HEENT Problems: Yes Hx Deafness: Yes ([place]; has R hearing aid) - RENAL Hx Chronic Kidney Disease: No - ENDOCRINE/METABOLIC Hx Diabetes Mellitus Type 2: Yes Hx Hypothyroidism: Yes - HEMATOLOGICAL/ONCOLOGICAL Hx Blood Disorders: No - INTEGUMENTARY Hx Dermatological Problems: No - MUSCULOSKELETAL/RHEUMATOLOGICAL Hx Falls: Yes (syncopal episode 08/2017) - GASTROINTESTINAL Hx Gastrointestinal Disorders: No - GENITOURINARY/GYNECOLOGICAL Hx Genitourinary Disorders: No - PSYCHIATRIC Hx Psychophysiologic Disorder: No Hx Substance Use: No - SURGICAL HISTORY Hx Surgeries: No - ANESTHESIA Hx Anesthesia: No Hx Anesthesia Reactions: No Hx Malignant Hyperthermia: No Meds Allergies/Adverse Reactions: Allergies Allergy/AdvReac Type Severity Reaction Status Date / Time levothyroxine sodium Allergy RASH Verified 11/12/17 20:37 [From Synthroid] - Medications Medications: Current Medications Amlodipine Besylate (Norvasc) 10 mg PO DAILY [facility] Last Admin: 11/16/17 09:07 Dose: 10 mg Aspirin (Aspirin Chewable) 81 mg PO DAILY [facility] Last Admin: 11/16/17 09:07 Dose: 81 mg Atorvastatin Calcium (Lipitor) 40 mg PO DIN [facility] Last Admin: 11/15/17 17:10 Dose: 40 mg Clonazepam (Klonopin) 0.25 mg PO BID PRN; Protocol PRN Reason: Anxiety Clopidogrel Bisulfate (Plavix) 75 mg PO DAILY [facility] Last Admin: 11/16/17 09:07 Dose: 75 mg Famotidine (Pepcid) 40 mg PO HS [facility] Last Admin: 11/15/17 21:14 Dose: 40 mg Meloxicam (Mobic) 15 mg PO DAILY [facility] Last Admin: 11/16/17 09:07 Dose: 15 mg Metoprolol Succinate (Toprol Xl) 25 mg PO BRK [facility] Last Admin: 11/16/17 08:10 Dose: 25 mg Pantoprazole Sodium (Protonix Ec Tab) 40 mg PO ACB [facility] Last Admin: 11/16/17 08:10 Dose: 40 mg Physical Exam - Constitutional Appears: Non-toxic, No Acute Distress - Head Exam Head Exam: ATRAUMATIC, NORMOCEPHALIC - Eye Exam Eye Exam: Normal appearance - ENT Exam ENT Exam: Mucous Membranes Moist - Respiratory Exam Respiratory Exam: Clear to Auscultation Bilateral, NORMAL BREATHING PATTERN - Cardiovascular Exam Cardiovascular Exam: RRR, +S1, +S2 - GI/Abdominal Exam GI & Abdominal Exam: Normal Bowel Sounds, Soft. absent: Distended, Firm, Guarding, Mass, Rebound, Rigid, Tenderness - Extremities Exam Extremities exam: Negative for: calf tenderness, pedal edema - Neurological Exam Neurological exam: Alert, Oriented x3 - Psychiatric Exam Psychiatric exam: Normal Affect, Normal Mood - Skin Skin Exam: Dry, Intact, Normal Color Results - Vital Signs Recent Vital Signs: Last Vital Signs Temp 98.3 F 11/16/17 08:24 Pulse 60 11/16/17 08:24 Resp 18 11/16/17 08:24 BP 148/62 11/16/17 09:07 Pulse Ox 95 11/16/17 08:24 - Labs Result Diagrams: 11/12/17 21:15 11/12/17 21:15 Labs: Laboratory Results - last 24 hr 11/15/17 11/15/17 15:54 22:01 POC Glucose (mg/dL) 125 H 204 H Assessment & Plan - Assessment and Plan (Free Text) Assessment: 89 yo F with dysphagia and large hiatal hernia; dysphagia improving Plan: -- Patient's symptoms are currently improving with speech/swallow therapy, tolerating a diet; dysphagia likely multifactorial -- Recommend anti-acids for symptomatic treatment -- No surgical intervention is warranted at this time -- Patient currently refusing EGD, but if symptoms worsen or persist, recommend EGD prior to any surgical intervention -- Discussed with Dr. Wiley Tamez PGY1 <Darvin Jama - Last Filed: 11/18/17 07:52> Results - Vital Signs Recent Vital Signs: Last Vital Signs Temp 97.7 F 11/17/17 14:31 Pulse 61 11/17/17 14:31 Resp 20 11/17/17 14:31 BP 155/87 H 11/17/17 14:31 Pulse Ox 94 L 11/17/17 14:31 - Labs Result Diagrams: 11/12/17 21:15 11/12/17 21:15 Labs: Laboratory Results - last 24 hr 11/17/17 11:00 POC Glucose (mg/dL) 137 H Assessment & Plan - Date & Time Date: 11/18/17
[2017-11-17] MEDS: Metoprolol Succinate 25 mg XL Tab PO SCH (09:50)
[2017-11-17] MEDS: Pantoprazole 40 mg EC Tab PO SCH (09:50)
--- NOTE | 2017-11-17 11:33 | CP.PCM.PN ---
Subjective - Date & Time of Evaluation Date of Evaluation: 11/17/17 Time of Evaluation: 09:00 - Subjective Subjective: PGY-2 GI progress note Patient was seen and examined at bedside. No acute distress. Patient is eating regular mechanical diet. She states that her dysphagia has improved with mechanical diet. She denies any abd pain, nausea, vomiting. Patient states that she [facility] but will consider it at a later date. Objective - Vital Signs/Intake and Output Vital Signs (last 24 hours): Temp Pulse Resp BP Pulse Ox 98.4 F 56 L 18 165/76 H 95 11/17/17 08:18 11/17/17 09:50 11/17/17 08:18 11/17/17 09:50 11/17/17 08:18 Intake and Output: 11/17/17 11/17/17 06:59 18:59 Intake Total 660 Balance 660 - Medications Medications: Current Medications Amlodipine Besylate (Norvasc) 10 mg PO DAILY [facility] Last Admin: 11/17/17 09:50 Dose: 10 mg Aspirin (Aspirin Chewable) 81 mg PO DAILY [facility] Last Admin: 11/17/17 09:51 Dose: 81 mg Atorvastatin Calcium (Lipitor) 40 mg PO DIN [facility] Last Admin: 11/16/17 17:37 Dose: 40 mg Clonazepam (Klonopin) 0.25 mg PO BID PRN; Protocol PRN Reason: Anxiety Clopidogrel Bisulfate (Plavix) 75 mg PO DAILY [facility] Last Admin: 11/17/17 09:50 Dose: 75 mg Famotidine (Pepcid) 40 mg PO HS [facility] Last Admin: 11/16/17 22:21 Dose: 40 mg Meloxicam (Mobic) 15 mg PO DAILY [facility] Last Admin: 11/17/17 09:50 Dose: 15 mg Metoprolol Succinate (Toprol Xl) 25 mg PO BRK [facility] Last Admin: 11/17/17 09:50 Dose: 25 mg Pantoprazole Sodium (Protonix Ec Tab) 40 mg PO ACB [facility] Last Admin: 11/17/17 09:50 Dose: 40 mg - Labs Labs: PT 11.2 SECONDS (9.4-12.5) 11/12/17 21:15 INR 0.98 (0.93-1.08) 11/12/17 21:15 APTT 25.8 Seconds (25.1-36.5) 11/12/17 21:15 - Constitutional Appears: Well, No Acute Distress - Head Exam Head Exam: ATRAUMATIC, NORMOCEPHALIC - Eye Exam Eye Exam: EOMI, Normal appearance - ENT Exam ENT Exam: Mucous Membranes Moist - Respiratory Exam Respiratory Exam: Clear to Ausculation Bilateral, NORMAL BREATHING PATTERN. absent: Decreased Breath Sounds, Rales, Rhonchi, Wheezes, Respiratory Distress, Stridor - Cardiovascular Exam Cardiovascular Exam: REGULAR RHYTHM, +S1, +S2. absent: Bradycardia, Tachycardia , Murmur - GI/Abdominal Exam GI & Abdominal Exam: Soft, Normal Bowel Sounds. absent: Distended, Firm, Tenderness - Neurological Exam Neurological Exam: Alert, Awake, Oriented x3 - Skin Skin Exam: Dry, Intact, Normal Color, Warm Assessment and Plan - Assessment and Plan (Free Text) Assessment: 89 yo female with PMH of diabetes, TIA, HTN, hearing aids presented with dysphagia. dysphagia HTN history of TIA diabetes Plan: CT of the neck and chest did not show any foreign bodies Speech and swallow evaluation recommended trial diet of mechanically altered finely chopped level 2, with thin liquids; aspiration/reflux precautions tolerating mechanical diet esophagram showed large hiatal hernia recommend elective EGD however patient refuses endoscope continue pepcid for GI prophylaxis consider ENT consult surgery was consulted, no surgical intervention at this time recommend continue speech/swallow therapy case reviewed and discussed with attending
--- NOTE | 2017-11-17 12:01 | DS ---
HISTORY OF PRESENT ILLNESS: The patient is an 89-year-old, seen and examined, awake, alert, oriented, hard of hearing. According to therapist, she was able to walk around the whole nursing station without getting shortness of breath. PHYSICAL EXAMINATION: VITAL SIGNS: She is afebrile, pulse 60, respirations 18, blood pressure 148/62. LUNGS: Bilateral good airflow. No rhonchi or crackle. HEART: S1 and S2 audible. ABDOMEN: Soft, nontender. No rebound, no guarding. NEUROLOGIC: She is awake, alert, oriented, able to communicate, quite hard of hearing. LABORATORY DATA: Blood sugar is 125. Had CT scan of the head done, shows generalized atrophy. Esophagogram showed large hiatal hernia. Lumbar spine x-ray shows spondylolisthesis and compression deformity of T11. ASSESSMENT: 1. Status post fall. 2. Kyphoscoliosis. 3. Large hiatal hernia. 4. Hard of hearing. 5. osteoarthritis. PLAN: Patient is clinically stable. She was advised to have frequent small meal. She does not want to undergo any intervention including endoscopy or any intervention. We will follow up the patient in office . Marie Farfan MD
[2017-11-17 14:34] VITALS: BP 155/87; PULSE 61; RESP 20; TEMP 97.7; O2SAT 94
--- NOTE | 2017-11-18 05:01 | DS ---
HISTORY OF PRESENT ILLNESS: Patient is an 89 years old who came in because of intractable back pain. Patient states she fell while shopping and scraped her back. Head x-ray was done, unremarkable except severe kyphoscoliosis and degenerative disk disease, was evaluated by physical therapist, ambulating fine, and their recommendation is to discharge home with home therapy. PHYSICAL EXAMINATION: GENERAL: On examination today, she is awake, alert, oriented, hard of hearing. VITAL SIGNS: She is afebrile. Pulse 56, respirations 18, blood pressure 165/76. LUNGS: Bilateral good air flow. No rhonchi or crackle. HEART: S1 and S2 audible. ABDOMEN: Soft, nontender. No rebound, no guarding. NEUROLOGIC: Patient is awake, alert and oriented, communicative. ASSESSMENT: 1. Status post fall. 2. Kyphoscoliosis. 3. Hypertension. 4. Hard of hearing. 5. Hypothyroidism. 6. Hyperlipidemia. PLAN: Patient is being discharged home. She is medically stable to be discharged and follow up in the office . Marie Farfan MD
== END 2017-11-17 15:53 | disposition home or self-care (01) | DRG 392 ==
LOC: ED 20:15 → ERH 23:42 → 5RSO 11-13 01:10 → OBSVTOIN 11-14 12:45
PROVIDERS: ADMIT Internal Medicine; ATTEND Internal Medicine
DX: R13.10 Dysphagia, unspecified (principal); I69.351 Hemiplegia and hemiparesis following cerebral infarction affecting right dominant side; M48.54XA Collapsed vertebra, not elsewhere classified, thoracic region, initial encounter for fracture; R47.02 Dysphasia; M41.9 Scoliosis, unspecified; I10 Essential (primary) hypertension; H91.90 Unspecified hearing loss, unspecified ear; E03.9 Hypothyroidism, unspecified; E78.5 Hyperlipidemia, unspecified; E11.9 Type 2 diabetes mellitus without complications; E87.6 Hypokalemia; K44.9 Diaphragmatic hernia without obstruction or gangrene; M19.90 Unspecified osteoarthritis, unspecified site; W18.30XA Fall on same level, unspecified, initial encounter; Z91.81 History of falling; M54.5 Low back pain